=== PATIENT | female | born 1970 | race Caucasian/White ===

== ENCOUNTER 2016-07-13 23:29 | Emergency (ER) | payer OTHER ==
[~2016-07-13 23:29] MED LIST: ADV500INH INH; ALBU83IN INH; CLAR1TAB2 PO; COUM1TAB17 PO; DIGO0.12 PO; DILT240C49 PO; LASI20TA PO; NON-325T5 PO; PACE400T PO; PROA1AER IN; RANI15TA PO; SING10TA32 PO; SPIR25TA2 PO; TOPR100T PO; TYLE325T5 PO
[2016-07-14 01:54] LABS: BASO % 0.2 % (0.0-1.0); EOS # 0.1 K/mm3 (0.0-0.50); EOS % 0.6 % (0.0-3.0); LARGE UNSTAINED CELL # 0.2 K/mm3 (0.0-0.4); LARGE UNSTAINED CELL % 1.5 % (0.0-4.0); LYMPH # 1.7 K/mm3 (1.5-4.5); LYMPH % 11.7 % (24.0-44.0); MEAN CORPUSCULAR HGB CONC 32.9 g/dl (32.0-36.5); MEAN CORPUSCULAR VOLUME 82.3 fl (80.0-96.0); MONO # 0.6 K/mm3 (0.0-0.8); MONO % 4.1 % (0.0-5.0); NEUTROPHILS # 11.7 K/mm3 (1.8-7.7); NEUTROPHILS % 81.9 % (36.0-66.0); PLATELET COUNT, AUTOMATED 268 k/mm3 (150-450); RED CELL DISTRIBUTION WIDTH 15.2 % (11.5-14.5); WHITE BLOOD COUNT 14.2 K/mm3 (4.0-10.0)
[2016-07-14 02:05] LABS: ALBUMIN 3.7 GM/DL (3.2-5.2); ALBUMIN/GLOBULIN RATIO 0.74 (1.00-1.93); BILIRUBIN,DIRECT 0.1 MG/DL (0.0-0.2); BILIRUBIN,TOTAL 0.5 MG/DL (0.2-1.0); CALCIUM LEVEL 8.5 MG/DL (8.5-10.1); CREATININE FOR GFR 1.32 MG/DL (0.55-1.02); GLOMERULAR FILTRATION RATE 46.3 (>58); POTASSIUM SERUM 2.8 MEQ/L (3.5-5.1); TOTAL PROTEIN 8.7 GM/DL (6.4-8.2)
--- NOTE | 2016-07-14 02:09 | REP ---
Clinical: Trauma. Technique: AP, lateral, bilateral oblique views right hand . Findings: The osseous structures and joint spaces are intact and normal. There is no evidence for acute fracture or dislocation. Surrounding soft tissues are unremarkable. No subcutaneous emphysema or radiodense foreign body. Impression: No acute fracture or dislocation. Signed by Trent Segundo MD 07/14/2016 02:01 A
[2016-07-14 02:16] LABS: INR 6.15
[2016-07-14] MEDS ORDERED: PHYTONADIONE 10MG/ML INJECTION (J3430) As Ordered ONE (02:24)
[2016-07-14] MEDS ORDERED: POTASSIUM CHLORIDE 10 MEQ SR TABLET As Ordered ONE (02:47)
--- NOTE | 2016-07-14 03:29 | EDDOCDS ---
Physician Documentation [facility] Name: Laura Musa Age: 46 yrs Sex: Female : 1970 Arrival Date: 07/13/2016 Time: 23:29 Bed 7 Private MD: ROXANNE ACKERMAN Disposition: 07/14/16 02:35 Discharged to Home/Self Care. Impression: Abnormal coagulation profile, Coagulation defect, unspecified - coumadin induced. INR at 6.1. - Condition is Stable. - Medication Reconciliation, Local Pharmacy Hours form. - Follow up: ROXANNE ACKERMAN; When: Tomorrow; Reason: Recheck today's complaints. - Problem is new. - Symptoms have improved. - Notes: see your physician tomorrow. do not take coumadin until cleared by your physician to do so. Historical: - Allergies: SULFA (SULFONAMIDES) (Hives); PENICILLINS (throat closing); Latex (Hives); Aspirin (throat closing); - Home Meds: 1. albuterol sulfate 90 mcg/actuation Inhl HFAA 1 puff every 4 hours (Last dose: 07/13/2016) 2. Breo Ellipta 100-25 mcg/dose inhalation dsdv 1 puff once daily (Last dose: 07/13/2016) 3. gabapentin 300 mg Oral cap 1 cap twice a day (Last dose: 07/13/2016 08:00) 4. furosemide 40 mg Oral tab 1 tab once daily (Last dose: 07/13/2016 17:00) 5. Coumadin 5 mg oral tab 1 tab once daily (Last dose: 07/13/2016 23:30) 6. metoprolol tartrate 25 mg oral tab .5 tab three times a day (Last dose: 07/13/2016 12:00) 7. ranitidine HCl 150 mg Oral tab 1 tab 2 times per day (Last dose: 07/13/2016 08:00) 8. tizanidine 4 mg oral tab 2 tabs every 8 hours as needed (Last dose: 07/13/2016 08:00) 9. omeprazole 20 mg Oral cpDR 1 cap 2 times per day (Last dose: 07/13/2016 08:00) 10. spironolactone 25 mg oral tab 1 tab once daily (Last dose: 07/13/2016 08:00) 11. Claritin 10 mg Oral tab 1 tab once daily 12. cetirizine 10 mg oral tab 1 tab once daily (Last dose: 07/13/2016 08:00) 13. oxybutynin chloride 5 mg Oral tr24 1 tab twice a day (Last dose: 07/13/2016 08:00) 14. Sertraline 50 mg daily (Last dose: 07/13/2016 08:00) 15. montelukast 10 mg oral tab 1 tab nightly (Last dose: 07/12/2016) 16. Oxygen 3 Liters nightly (Last dose: 07/12/2016) - PMHx: Atrial Fib; COPD; GERD; Seasonal Allergies; - PSHx: Mitral Valve Repair (March 16, 2015); LEEP Procedure; Tubal ligation; Uterine Ablation; - Social history: Smoking status: Patient uses tobacco products, light tobacco smoker. No barriers to communication noted, The patient speaks fluent Irish, Speaks appropriately for age. - Family history: Not pertinent. - : The pt / caregiver states he / she is on anticoagulants: coumadin. Home medication list is obtained from the patient, [employer] import data, pill bottles. - Exposure Risk Screening:: None identified. 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 5 in. (165.10 cm) (R); Pain 8/10; 07/14 03:16 BP 120 / 80 RA (auto/); Pulse 18 RA; Resp 18 S; Temp 98.3(TE); Pulse Ox 100% on R/A; af2 07/13 23:33 Body Mass Index 32.45 (88.45 kg, 165.10 cm) gr2 MDM: 00:11 Financial registration complete. [facility] 00:19 CBC with Diff Ordered. EDMS 00:19 MED Profile Ordered. EDMS 00:19 Pt & Aptt Ordered. EDMS 00:19 Liver Profile Ordered. EDMS 00:19 Ammonia (Little Green Tube on Ice, Not Pea Green) Ordered. EDMS 00:19 Hand, Complete Ordered. EDMS 00:27 COUNTS INCLUDE 234 BEDS AT THE [facility] Payment Agreement was scanned into [employer] and attached to record. [facility] 02:08 CBC with Diff Reviewed. [facility] 02:08 Ammonia (Little Green Tube on Ice, Not Pea Green) Reviewed. cs11 02:17 IV Saline Lock ordered. cs11 02:17 Phytonadione 5 mg IVP once ordered. cs11 02:32 MED Profile Reviewed. cs11 02:32 Pt & Aptt Reviewed. cs11 02:32 Liver Profile Reviewed. cs11 02:32 Hand, Complete Reviewed. cs11 02:32 Potassium Chloride Extended Release Tablet 40 mEq PO once ordered. cs11 Administered Medications: 02:36 Drug: Phytonadione 5 mg [phytonadione (vitamin K1) 10 mg/mL injection solution (0.5 js15 mL)] Route: IVP; Site: left antecubital; 02:50 Drug: Potassium Chloride 40 mEq [potassium chloride ER 10 mEq tablet,extended release js15 (4 tabs)] Route: PO; Signatures: Dispatcher [employer] EDMO Elisa Hoover, RN RN kmg1 Gilberto Guerrero, DO 11 Nyla Marion [facility] Nely Brown,RN RN af2 Perlita Gonzalez,RN RN js15 The chart was reviewed and I authenticate all verbal orders and agree with the evaluation and treatment provided.Attachments: 00:27 COUNTS INCLUDE 234 BEDS AT THE [facility] Payment Agreement [facility] MTDD
--- NOTE | 2016-07-14 03:30 | EDDOCDS ---
Nurse's Notes [facility] Name: Laura Musa Age: 46 yrs Sex: Female : 1970 Arrival Date: 07/13/2016 Time: 23:29 Bed 7 Private MD: ROXANNE ACKERMAN Diagnosis: Abnormal coagulation profile;Coagulation defect, unspecified-coumadin induced. INR at 6.1 Presentation: 07/13 23:38 Presenting complaint: Patient states: Petechial, purpura rash on both legs. Swelling kmg1 right hand painful feet, ankles, knees, and hands. The patients lower extremity appears normal on examination. Adult Sepsis Screening: The patient does not have new or worsening altered mentation. Patient's respiratory rate is less than 22. Systolic blood pressure is greater than 100. Patient has a qSOFA score of 0- Negative Sepsis Screen. Suicide/Homicide risk assessment- the patient denies having any suicidal and/or homicidal ideations and does not present with any other emotional, behavioral or mental health complaints. Status: Patient is not a nutritional services host or dependent. Transition of care: patient was not received from another setting of care. 23:38 Acuity: SANTOSH Level 3 kmg1 23:38 Method Of Arrival: Wheelchair km Triage Assessment: 23:54 General: Appears comfortable, distressed, Behavior is appropriate for age, cooperative, kmg1 pleasant. Pain: Location: right hand, left hand, right knee, right coronado, anterior aspect of right ankle, dorsum of right foot and left leg Pain currently is 3 out of 10 on a pain scale. At worst was 10 out of 10 on a pain scale. Alleviated by rest, Aggravated by increased activity, weight bearing. HIV screening NA for this visit Offered previously. Derm: Rash noted that is red, vesicular, on right leg and left leg. Musculoskeletal: Reports pain in right hand, left hand, right leg and left leg. 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 albuterol sulfate 90 mcg/actuation Inhl HFAA 1 puff every 4 hours (Last dose: 07/13/2016) 2. Breo Ellipta 100-25 mcg/dose inhalation dsdv 1 puff once daily (Last dose: 07/13/2016) 3. gabapentin 300 mg Oral cap 1 cap twice a day (Last dose: 07/13/2016 08:00) 4. furosemide 40 mg Oral tab 1 tab once daily (Last dose: 07/13/2016 17:00) 5. Coumadin 5 mg oral tab 1 tab once daily (Last dose: 07/13/2016 23:30) 6. metoprolol tartrate 25 mg oral tab .5 tab three times a day (Last dose: 07/13/2016 12:00) 7. ranitidine HCl 150 mg Oral tab 1 tab 2 times per day (Last dose: 07/13/2016 08:00) 8. tizanidine 4 mg oral tab 2 tabs every 8 hours as needed (Last dose: 07/13/2016 08:00) 9. omeprazole 20 mg Oral cpDR 1 cap 2 times per day (Last dose: 07/13/2016 08:00) 10. spironolactone 25 mg oral tab 1 tab once daily (Last dose: 07/13/2016 08:00) 11. Claritin 10 mg Oral tab 1 tab once daily 12. cetirizine 10 mg oral tab 1 tab once daily (Last dose: 07/13/2016 08:00) 13. oxybutynin chloride 5 mg Oral tr24 1 tab twice a day (Last dose: 07/13/2016 08:00) 14. Sertraline 50 mg daily (Last dose: 07/13/2016 08:00) 15. montelukast 10 mg oral tab 1 tab nightly (Last dose: 07/12/2016) 16. Oxygen 3 Liters nightly (Last dose: 07/12/2016) - PMHx: Atrial Fib; COPD; GERD; Seasonal Allergies; - PSHx: Mitral Valve Repair (March 16, 2015); LEEP Procedure; Tubal ligation; Uterine Ablation; - Social history: Smoking status: Patient uses tobacco products, light tobacco smoker. No barriers to communication noted, The patient speaks fluent Amharic, Speaks appropriately for age. - Family history: Not pertinent. - : The pt / caregiver states he / she is on anticoagulants: coumadin. Home medication list is obtained from the patient, [facility] import data, pill bottles. - Exposure Risk Screening:: None identified. Screenin/06 03:16 Screening information is obtained from the patient. Fall risk: No risks identified. af2 Assistance ADL's: requires no assistance with activities of daily living. Abuse/DV Screen: The patient / caregiver reports he/she is: not in a situation that causes fear, pain or injury. Nutritional screening: No deficits noted. Advance Directives: Further advance directive information is declined. home support is adequate. Assessment: 01:00 General: Appears uncomfortable, Behavior is appropriate for age, cooperative. Pain: js15 Location: right ankle and left medial ankle Pain currently is 7 out of 10 on a pain scale. Neurological: Level of Consciousness is awake, alert, obeys commands, Oriented to person, place, time. Cardiovascular: Capillary refill < 3 seconds Heart tones S1 S2 present. Respiratory: Airway is patent Respiratory effort is even, unlabored, Respiratory pattern is regular, symmetrical, Breath sounds are clear bilaterally. Derm: Rash noted that is on right leg and left leg purpuric. Musculoskeletal: Capillary refill < 3 seconds No deformity noted Signs and Symptoms of Compartment Syndrome: no signs of compartment syndrome. 02:00 Reassessment: Patient appears in no apparent distress at this time. Pt resting on js15 stretcher with eyes closed; respirations even and unlabored; skin pink, warm, dry. 03:00 Reassessment: Patient appears in no apparent distress at this time. Pt awake and alert, js15 resting on stretcher, respirations even and unlabored; skin pink, warm, dry with red, purpuric rash to bilateral lower extremities; will continue to monitor. Vital Signs: 07/13 23:33 BP 126 / 89; Pulse 105; Resp 20 S; Temp 98.7(O); Pulse Ox 99% on R/A; Weight 88.45 kg gr2 (R); Height 5 ft. 5 in. (165.10 cm) (R); Pain 8/10; 07/14 03:16 BP 120 / 80 RA (auto/); Pulse 18 RA; Resp 18 S; Temp 98.3(TE); Pulse Ox 100% on R/A; af2 07/13 23:33 Body Mass Index 32.45 (88.45 kg, 165.10 cm) gr2 Vitals: 07/13 23:33 Log In Time: July 13, 2016 at 23:33. gr2 ED Course: 23:32 Patient visited by Brigid Bynum. gr2 23:32 ROXANNE ACKERMAN is Private Physician. gr2 23:32 Patient moved to Waiting gr2 23:34 Patient visited by Brigid Bynum. gr2 23:34 Patient moved to Pre RCE gr2 23:43 Triage Initiated kmg1 23:56 Reina Forbes,BLANCHE is Primary Nurse. lf1 23:59 Gilberto Guerrero DO is Attending Physician. cs11 23:59 Patient visited by Gilberto Guerrero DO. cs11 23:59 Patient moved to [facility] [place] 0206 00:27 [facility] Payment Agreement was scanned into [employer] and attached to record. [facility] 00:30 Patient name changed from Laura\S\J\S\[place]\S\ to Laura\S\Candace\S\[place]. EDMS 00:47 Patient moved to Radiology [facility] 00:49 Patient moved to 7 [facility] 01:30 Inserted saline lock: 20 gauge in left antecubital area The patient tolerated the js15 procedure well. 01:42 Patient visited by Perlita Gonzalez,BLANCHE. js15 01:42 Ammonia (Little Green Tube on Ice, Not Pea Green) Sent. js15 01:42 Liver Profile Sent. js15 01:42 Pt & Aptt Sent. js15 01:42 MED Profile Sent. js15 01:42 CBC with Diff Sent. js15 02:22 Hand, Complete Returned. EDMS 02:34 ROXANNE ACKERMAN is Referral Physician. cs11 03:16 Discontinued IV lock intact, bleeding controlled, pressure dressing applied, No af2 redness/swelling at site. No procedures done that require assistance. 03:17 Patient visited by Nely Brown,BLANCHE. af2 03:17 The patient / caregiver is instructed regarding the plan of care and ED course. af2 Administered Medications: 02:36 Drug: Phytonadione 5 mg [phytonadione (vitamin K1) 10 mg/mL injection solution (0.5 js15 mL)] Route: IVP; Site: left antecubital; 02:50 Drug: Potassium Chloride 40 mEq [potassium chloride ER 10 mEq tablet,extended release js15 (4 tabs)] Route: PO; Order Results: Lab Order: CBC with Diff; SPEC'M 07/14/16 01:32 Test: WHITE BLOOD COUNT; Value: 14.2; Range: 4.0-10.0; Abnormal: Above high normal; Units: K/mm3; Status: F Test: RED BLOOD COUNT; Value: 5.40; Range: 4.00-5.40; Units: M/mm3; Status: F Test: HEMOGLOBIN; Value: 14.6; Range: 12.0-16.0; Units: g/dl; Status: F Test: HEMATOCRIT; Value: 44.4; Range: 36.0-47.0; Units: %; Status: F Test: MEAN CORPUSCULAR VOLUME; Value: 82.3; Range: 80.0-96.0; Units: fl; Status: F Test: MEAN CORPUSCULAR HEMOGLOBIN; Value: 27.0; Range: 27.0-33.0; Units: pg; Status: F Test: MEAN CORPUSCULAR HGB CONC; Value: 32.9; Range: 32.0-36.5; Units: g/dl; Status: F Test: RED CELL DISTRIBUTION WIDTH; Value: 15.2; Range: 11.5-14.5; Abnormal: Above high normal; Units: %; Status: F Test: PLATELET COUNT, AUTOMATED; Value: 268; Range: 150-450; Units: k/mm3; Status: F Test: NEUTROPHILS %; Value: 81.9; Range: 36.0-66.0; Abnormal: Above high normal; Units: %; Status: F Test: LYMPH %; Value: 11.7; Range: 24.0-44.0; Abnormal: Below low normal; Units: %; Status: F Test: MONO %; Value: 4.1; Range: 0.0-5.0; Units: %; Status: F Test: EOS %; Value: 0.6; Range: 0.0-3.0; Units: %; Status: F Test: BASO %; Value: 0.2; Range: 0.0-1.0; Units: %; Status: F Test: LARGE UNSTAINED CELL %; Value: 1.5; Range: 0.0-4.0; Units: %; Status: F Test: NEUTROPHILS #; Value: 11.7; Range: 1.8-7.7; Abnormal: Above high normal; Units: K/mm3; Status: F Test: LYMPH #; Value: 1.7; Range: 1.5-4.5; Units: K/mm3; Status: F Test: MONO #; Value: 0.6; Range: 0.0-0.8; Units: K/mm3; Status: F Test: EOS #; Value: 0.1; Range: 0.0-0.50; Units: K/mm3; Status: F Test: BASO #; Value: 0.0; Range: 0.0-0.2; Units: K/mm3; Status: F Test: LARGE UNSTAINED CELL #; Value: 0.2; Range: 0.0-0.4; Units: K/mm3; Status: F Lab Order: MED Profile; SPEC'M 07/14/16 01:32 Test: GLUCOSE, FASTING; Value: 113; Range: 70-105; Abnormal: Above high normal; Units: MG/DL; Status: F Test: BLOOD UREA NITROGEN; Value: 14; Range: 7-18; Units: MG/DL; Status: F Test: CREATININE FOR GFR; Value: 1.32; Range: 0.55-1.02; Abnormal: Above high normal; Units: MG/DL; Status: F Test: GLOMERULAR FILTRATION RATE; Value: 46.3; Range: >58; Abnormal: Below low normal; Status: F Test: SODIUM LEVEL; Value: 135; Range: 136-145; Abnormal: Below low normal; Units: MEQ/L; Status: F Test: POTASSIUM SERUM; Value: 2.8; Range: 3.5-5.1; Abnormal: Critical Low; Units: MEQ/L; Status: F Test: CHLORIDE LEVEL; Value: 98; Range: 98-107; Units: MEQ/L; Status: F Test: CARBON DIOXIDE LEVEL; Value: 30; Range: 21-32; Units: MEQ/L; Status: F Test: ANION GAP; Value: 7; Range: 8-16; Abnormal: Below low normal; Units: MEQ/L; Status: F Test: CALCIUM LEVEL; Value: 8.5; Range: 8.5-10.1; Units: MG/DL; Status: F Test Note: ; Units are mL/min/1.73 m2 Chronic Kidney Disease Staging per NKF: Stage I & II GFR >=60 Normal to Mildly Decreased Stage III GFR 30-59 Moderately Decreased Stage IV GFR 15-29 Severely Decreased Stage V GFR <15 Very Little GFR Left ESRD GFR <15 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 Lab Order: Pt & Aptt; SPEC'M 07/14/16 01:32 Test: PROTHROMBIN TIME; Value: 54.4; Range: 12.3-14.5; Abnormal: Above high normal; Units: SECONDS; Status: F Test: INR; Value: 6.15; Abnormal: Above upper panic limits; Status: F Test: PARTIAL THROMBOPLASTIN TIME; Value: 119.3; Range: 26.6-37.1; Abnormal: Above high normal; Units: SECONDS; Status: F Test Note: ; THERAPUTIC HUMAN INR VALUES INDICATIONS NORMAL RANGES PROPHYLAXIS/TREATMENT OF: VENOUS THROMBOSIS 2.0-3.0 PULMONARY EMBOLISM 2.0-3.0 PREVENTION OF SYSTEMIC EMBOLISM FROM: TISSUE HEART VALVES 2.0-3.0 ACUTE MYOCARDIAL INFARCTION 2.0-3.0 VALVULAR HEART DISEASE 2.0-3.0 ATRIAL FIBRILLATION 2.0-3.0 MECHANICAL VALVES(HIGH RISK) 2.5-3.5 RECURRENT MYOCARDIAL INFARCTION 2.5-3.5 Lab Order: Liver Profile; SPEC07/14/16 01:32 Test: AST/SGOT; Value: 24; Range: 15-37; Units: U/L; Status: F Test: ALT/SGPT; Value: 19; Range: 12-78; Units: U/L; Status: F Test: ALKALINE PHOSPHATASE; Value: 180; Range: 45-117; Abnormal: Above high normal; Units: U/L; Status: F Test: BILIRUBIN,TOTAL; Value: 0.5; Range: 0.2-1.0; Units: MG/DL; Status: F Test: BILIRUBIN,DIRECT; Value: 0.1; Range: 0.0-0.2; Units: MG/DL; Status: F Test: TOTAL PROTEIN; Value: 8.7; Range: 6.4-8.2; Abnormal: Above high normal; Units: GM/DL; Status: F Test: ALBUMIN; Value: 3.7; Range: 3.2-5.2; Units: GM/DL; Status: F Test: ALBUMIN/GLOBULIN RATIO; Value: 0.74; Range: 1.00-1.93; Abnormal: Below low normal; Status: F Lab Order: Ammonia (Little Green Tube on Ice, Not Pea Green); SPEC'M 07/14/16 01:32 Test: AMMONIA; Value: < 10; Range: <32; Units: uMOL/L; Status: F Radiology Order: Hand, Complete Test: Hand, Complete REASON FOR EXAMINATION: Trauma; Clinical: Trauma.; ; Technique: AP, lateral, bilateral oblique views right hand .; ; Findings: The osseous structures and joint spaces are intact and normal. There; is no evidence for acute fracture or dislocation. Surrounding soft tissues are; unremarkable. No subcutaneous emphysema or radiodense foreign body.; ; Impression:; No acute fracture or dislocation.; ; ; Signed by; Trent Segundo MD 07/14/2016 02:01 A; Outcome: 02:35 Discharge ordered by Provider. cs11 03:17 Discharge Assessment: Patient awake, alert and oriented x 3. No cognitive and/or af2 functional deficits noted. Patient verbalized understanding of disposition instructions. patient administered narcotics - no. The following High Risk Discharge criteria are identified: None. Discharged to home ambulatory, with significant other. Condition: stable. Discharge instructions given to patient, Instructed on discharge instructions, follow up and referral plans. medication usage, Demonstrated understanding of instructions, medications, Pt was receptive of discharge instructions/ teaching. No special radiology studies were completed. Property :Personal belongings accompany Pt. 03:28 Patient left the ED. js15 Signatures: Dispatcher [employer] EDMS Elisa Hoover, RN RN kmg1 Hal Sarmiento LisaRN RN lf1 Gilberto Guerrero DO DO cs11 Brigid Bynum gr2 Nyla Marion AmberRN RN af2 Perlita GonzalezRN RN js15 MTDD
--- NOTE | 2016-07-16 04:29 | EDDOCDS ---
Physician Documentation [facility] Name: Laura Musa Age: 46 yrs Sex: Female : 1970 Arrival Date: 07/13/2016 Time: 23:29 Bed 7 Private MD: ROXANNE ACKERMAN Disposition: 07/14/16 02:35 Discharged to Home/Self Care. Impression: Abnormal coagulation profile, Coagulation defect, unspecified - coumadin induced. INR at 6.1. - Condition is Stable. - Medication Reconciliation, Local Pharmacy Hours form. - Follow up: ROXANNE ACKERMAN; When: Tomorrow; Reason: Recheck today's complaints. - Problem is new. - Symptoms have improved. - Notes: see your physician tomorrow. do not take coumadin until cleared by your physician to do so. Historical: - Allergies: SULFA (SULFONAMIDES) (Hives); PENICILLINS (throat closing); Latex (Hives); Aspirin (throat closing); - Home Meds: 1. albuterol sulfate 90 mcg/actuation Inhl HFAA 1 puff every 4 hours (Last dose: 07/13/2016) 2. Breo Ellipta 100-25 mcg/dose inhalation dsdv 1 puff once daily (Last dose: 07/13/2016) 3. gabapentin 300 mg Oral cap 1 cap twice a day (Last dose: 07/13/2016 08:00) 4. furosemide 40 mg Oral tab 1 tab once daily (Last dose: 07/13/2016 17:00) 5. Coumadin 5 mg oral tab 1 tab once daily (Last dose: 07/13/2016 23:30) 6. metoprolol tartrate 25 mg oral tab .5 tab three times a day (Last dose: 07/13/2016 12:00) 7. ranitidine HCl 150 mg Oral tab 1 tab 2 times per day (Last dose: 07/13/2016 08:00) 8. tizanidine 4 mg oral tab 2 tabs every 8 hours as needed (Last dose: 07/13/2016 08:00) 9. omeprazole 20 mg Oral cpDR 1 cap 2 times per day (Last dose: 07/13/2016 08:00) 10. spironolactone 25 mg oral tab 1 tab once daily (Last dose: 07/13/2016 08:00) 11. Claritin 10 mg Oral tab 1 tab once daily 12. cetirizine 10 mg oral tab 1 tab once daily (Last dose: 07/13/2016 08:00) 13. oxybutynin chloride 5 mg Oral tr24 1 tab twice a day (Last dose: 07/13/2016 08:00) 14. Sertraline 50 mg daily (Last dose: 07/13/2016 08:00) 15. montelukast 10 mg oral tab 1 tab nightly (Last dose: 07/12/2016) 16. Oxygen 3 Liters nightly (Last dose: 07/12/2016) - PMHx: Atrial Fib; COPD; GERD; Seasonal Allergies; - PSHx: Mitral Valve Repair (March 16, 2015); LEEP Procedure; Tubal ligation; Uterine Ablation; - Social history: Smoking status: Patient uses tobacco products, light tobacco smoker. No barriers to communication noted, The patient speaks fluent Belarusian, Speaks appropriately for age. - Family history: Not pertinent. - : The pt / caregiver states he / she is on anticoagulants: coumadin. Home medication list is obtained from the patient, [employer] MD import data, pill bottles. - Exposure Risk Screening:: None identified. 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 5 in. (165.10 cm) (R); Pain 8/10; 07/14 03:16 BP 120 / 80 RA (auto/); Pulse 18 RA; Resp 18 S; Temp 98.3(TE); Pulse Ox 100% on R/A; af2 07/13 23:33 Body Mass Index 32.45 (88.45 kg, 165.10 cm) gr2 MDM: 00:11 Financial registration complete. [facility] 00:19 CBC with Diff Ordered. EDMS 00:19 MED Profile Ordered. EDMS 00:19 Pt & Aptt Ordered. EDMS 00:19 Liver Profile Ordered. EDMS 00:19 Ammonia (Little Green Tube on Ice, Not Pea Green) Ordered. EDMS 00:19 Hand, Complete Ordered. EDMS 00:27 [facility] Payment Agreement was scanned into [employer] and attached to record. [facility] 02:08 CBC with Diff Reviewed. [facility] 02:08 Ammonia (Little Green Tube on Ice, Not Pea Green) Reviewed. cs11 02:17 IV Saline Lock ordered. cs11 02:17 Phytonadione 5 mg IVP once ordered. cs11 02:32 MED Profile Reviewed. cs11 02:32 Pt & Aptt Reviewed. cs11 02:32 Liver Profile Reviewed. cs11 02:32 Hand, Complete Reviewed. cs11 02:32 Potassium Chloride Extended Release Tablet 40 mEq PO once ordered. [facility] 09:36 T-Sheet-- Draft Copy was scanned into [employer] and attached to record. gb Administered Medications: 02:36 Drug: Phytonadione 5 mg [phytonadione (vitamin K1) 10 mg/mL injection solution (0.5 js15 mL)] Route: IVP; Site: left antecubital; 02:50 Drug: Potassium Chloride 40 mEq [potassium chloride ER 10 mEq tablet,extended release js15 (4 tabs)] Route: PO; Signatures: Dispatcher [employer] EDDC Elisa Hoover, RN RN kmg1 Danae Harmon, Reg Reg gb Gilberto Guerrero, DO DO cs11 Nyla Marion [facility] Nely Brown,RN RN af2 Perlita Gonzalez,RN RN js15 The chart was reviewed and I authenticate all verbal orders and agree with the evaluation and treatment provided.Attachments: 00:27 [facility] Payment Agreement [facility] 09:36 T-Sheet-- Draft Copy gb Chart Complete MTDD
--- NOTE | 2016-07-16 04:29 | EDDOCDS ---
Physician Documentation [facility] Name: Laura Musa Age: 46 yrs Sex: Female : 1970 Arrival Date: 07/13/2016 Time: 23:29 Bed 7 Private MD: ROXANNE ACKERMAN Disposition: 07/14/16 02:35 Discharged to Home/Self Care. Impression: Abnormal coagulation profile, Coagulation defect, unspecified - coumadin induced. INR at 6.1. - Condition is Stable. - Medication Reconciliation, Local Pharmacy Hours form. - Follow up: ROXANNE ACKERMAN; When: Tomorrow; Reason: Recheck today's complaints. - Problem is new. - Symptoms have improved. - Notes: see your physician tomorrow. do not take coumadin until cleared by your physician to do so. Historical: - Allergies: SULFA (SULFONAMIDES) (Hives); PENICILLINS (throat closing); Latex (Hives); Aspirin (throat closing); - Home Meds: 1. albuterol sulfate 90 mcg/actuation Inhl HFAA 1 puff every 4 hours (Last dose: 07/13/2016) 2. Breo Ellipta 100-25 mcg/dose inhalation dsdv 1 puff once daily (Last dose: 07/13/2016) 3. gabapentin 300 mg Oral cap 1 cap twice a day (Last dose: 07/13/2016 08:00) 4. furosemide 40 mg Oral tab 1 tab once daily (Last dose: 07/13/2016 17:00) 5. Coumadin 5 mg oral tab 1 tab once daily (Last dose: 07/13/2016 23:30) 6. metoprolol tartrate 25 mg oral tab .5 tab three times a day (Last dose: 07/13/2016 12:00) 7. ranitidine HCl 150 mg Oral tab 1 tab 2 times per day (Last dose: 07/13/2016 08:00) 8. tizanidine 4 mg oral tab 2 tabs every 8 hours as needed (Last dose: 07/13/2016 08:00) 9. omeprazole 20 mg Oral cpDR 1 cap 2 times per day (Last dose: 07/13/2016 08:00) 10. spironolactone 25 mg oral tab 1 tab once daily (Last dose: 07/13/2016 08:00) 11. Claritin 10 mg Oral tab 1 tab once daily 12. cetirizine 10 mg oral tab 1 tab once daily (Last dose: 07/13/2016 08:00) 13. oxybutynin chloride 5 mg Oral tr24 1 tab twice a day (Last dose: 07/13/2016 08:00) 14. Sertraline 50 mg daily (Last dose: 07/13/2016 08:00) 15. montelukast 10 mg oral tab 1 tab nightly (Last dose: 07/12/2016) 16. Oxygen 3 Liters nightly (Last dose: 07/12/2016) - PMHx: Atrial Fib; COPD; GERD; Seasonal Allergies; - PSHx: Mitral Valve Repair (March 16, 2015); LEEP Procedure; Tubal ligation; Uterine Ablation; - Social history: Smoking status: Patient uses tobacco products, light tobacco smoker. No barriers to communication noted, The patient speaks fluent Turkmen, Speaks appropriately for age. - Family history: Not pertinent. - : The pt / caregiver states he / she is on anticoagulants: coumadin. Home medication list is obtained from the patient, [employer] import data, pill bottles. - Exposure Risk Screening:: None identified. [employer] DIV[employer] DIRECTOR: 07/13 23:54 LMP N/A - Uterine ablation kmg1 Vital Signs: 23:33 BP 126 / 89; Pulse 105; Resp 20 S; Temp 98.7(O); Pulse Ox 99% on R/A; Weight 88.45 kg / gr2 195 lbs (R); Height 5 ft. 5 in. (165.10 cm) (R); Pain 8/10; 07/14 03:16 BP 120 / 80 RA (auto/); Pulse 18 RA; Resp 18 S; Temp 98.3(TE); Pulse Ox 100% on R/A; af2 07/13 23:33 Body Mass Index 32.45 (88.45 kg, 165.10 cm) gr2 MDM: 00:11 Financial registration complete. [facility] 00:19 CBC with Diff Ordered. EDMS 00:19 MED Profile Ordered. EDMS 00:19 Pt & Aptt Ordered. EDMS 00:19 Liver Profile Ordered. EDMS 00:19 Ammonia (Little Green Tube on Ice, Not Pea Green) Ordered. EDMS 00:19 Hand, Complete Ordered. EDMS 00:27 [facility] Payment Agreement was scanned into [employer] and attached to record. [facility] 02:08 CBC with Diff Reviewed. [facility] 02:08 Ammonia (Little Green Tube on Ice, Not Pea Green) Reviewed. cs11 02:17 IV Saline Lock ordered. cs11 02:17 Phytonadione 5 mg IVP once ordered. cs11 02:32 MED Profile Reviewed. cs11 02:32 Pt & Aptt Reviewed. cs11 02:32 Liver Profile Reviewed. cs11 02:32 Hand, Complete Reviewed. cs11 02:32 Potassium Chloride Extended Release Tablet 40 mEq PO once ordered. [facility] 09:36 T-Sheet-- Draft Copy was scanned into [employer] and attached to record. gb Administered Medications: 02:36 Drug: Phytonadione 5 mg [phytonadione (vitamin K1) 10 mg/mL injection solution (0.5 js15 mL)] Route: IVP; Site: left antecubital; 02:50 Drug: Potassium Chloride 40 mEq [potassium chloride ER 10 mEq tablet,extended release js15 (4 tabs)] Route: PO; Signatures: Dispatcher [employer] EDIA Elisa Hoover, RN RN kmg1 Danae Harmon, Reg Reg gb Gilberto Guerrero, DO DO cs11 Nyla Marion [facility] Nely Brown,RN RN af2 Perlita Gonzalez,RN RN js15 The chart was reviewed and I authenticate all verbal orders and agree with the evaluation and treatment provided.Attachments: 00:27 [facility] Payment Agreement [facility] 09:36 T-Sheet-- Draft Copy gb Chart Complete MTDD
--- NOTE | 2016-07-16 04:30 | EDDOCDS ---
Nurse's Notes [facility] Name: Laura Musa Age: 46 yrs Sex: Female : 1970 Arrival Date: 07/13/2016 Time: 23:29 Bed 7 Private MD: ROXANNE ACKERMAN Diagnosis: Abnormal coagulation profile;Coagulation defect, unspecified-coumadin induced. INR at 6.1 Presentation: 07/13 23:38 Presenting complaint: Patient states: Petechial, purpura rash on both legs. Swelling kmg1 right hand painful feet, ankles, knees, and hands. The patients lower extremity appears normal on examination. Adult Sepsis Screening: The patient does not have new or worsening altered mentation. Patient's respiratory rate is less than 22. Systolic blood pressure is greater than 100. Patient has a qSOFA score of 0- Negative Sepsis Screen. Suicide/Homicide risk assessment- the patient denies having any suicidal and/or homicidal ideations and does not present with any other emotional, behavioral or mental health complaints. Status: Patient is not a office services specialist or dependent. Transition of care: patient was not received from another setting of care. 23:38 Acuity: SANTOSH Level 3 kmg1 23:38 Method Of Arrival: Wheelchair km Triage Assessment: 23:54 General: Appears comfortable, distressed, Behavior is appropriate for age, cooperative, kmg1 pleasant. Pain: Location: right hand, left hand, right knee, right coronado, anterior aspect of right ankle, dorsum of right foot and left leg Pain currently is 3 out of 10 on a pain scale. At worst was 10 out of 10 on a pain scale. Alleviated by rest, Aggravated by increased activity, weight bearing. HIV screening NA for this visit Offered previously. Derm: Rash noted that is red, vesicular, on right leg and left leg. Musculoskeletal: Reports pain in right hand, left hand, right leg and left leg. [employer]: 23:54 LMP N/A - Uterine ablation kmg1 Historical: - Allergies: SULFA (SULFONAMIDES) (Hives); PENICILLINS (throat closing); Latex (Hives); Aspirin (throat closing); - Home Meds: 1. albuterol sulfate 90 mcg/actuation Inhl HFAA 1 puff every 4 hours (Last dose: 07/13/2016) 2. Breo Ellipta 100-25 mcg/dose inhalation dsdv 1 puff once daily (Last dose: 07/13/2016) 3. gabapentin 300 mg Oral cap 1 cap twice a day (Last dose: 07/13/2016 08:00) 4. furosemide 40 mg Oral tab 1 tab once daily (Last dose: 07/13/2016 17:00) 5. Coumadin 5 mg oral tab 1 tab once daily (Last dose: 07/13/2016 23:30) 6. metoprolol tartrate 25 mg oral tab .5 tab three times a day (Last dose: 07/13/2016 12:00) 7. ranitidine HCl 150 mg Oral tab 1 tab 2 times per day (Last dose: 07/13/2016 08:00) 8. tizanidine 4 mg oral tab 2 tabs every 8 hours as needed (Last dose: 07/13/2016 08:00) 9. omeprazole 20 mg Oral cpDR 1 cap 2 times per day (Last dose: 07/13/2016 08:00) 10. spironolactone 25 mg oral tab 1 tab once daily (Last dose: 07/13/2016 08:00) 11. Claritin 10 mg Oral tab 1 tab once daily 12. cetirizine 10 mg oral tab 1 tab once daily (Last dose: 07/13/2016 08:00) 13. oxybutynin chloride 5 mg Oral tr24 1 tab twice a day (Last dose: 07/13/2016 08:00) 14. Sertraline 50 mg daily (Last dose: 07/13/2016 08:00) 15. montelukast 10 mg oral tab 1 tab nightly (Last dose: 07/12/2016) 16. Oxygen 3 Liters nightly (Last dose: 07/12/2016) - PMHx: Atrial Fib; COPD; GERD; Seasonal Allergies; - PSHx: Mitral Valve Repair (March 16, 2015); LEEP Procedure; Tubal ligation; Uterine Ablation; - Social history: Smoking status: Patient uses tobacco products, light tobacco smoker. No barriers to communication noted, The patient speaks fluent Romanian, Speaks appropriately for age. - Family history: Not pertinent. - : The pt / caregiver states he / she is on anticoagulants: coumadin. Home medication list is obtained from the patient, [employer] import data, pill bottles. - Exposure Risk Screening:: None identified. Screenin/06 03:16 Screening information is obtained from the patient. Fall risk: No risks identified. af2 Assistance ADL's: requires no assistance with activities of daily living. Abuse/DV Screen: The patient / caregiver reports he/she is: not in a situation that causes fear, pain or injury. Nutritional screening: No deficits noted. Advance Directives: Further advance directive information is declined. home support is adequate. Assessment: 01:00 General: Appears uncomfortable, Behavior is appropriate for age, cooperative. Pain: js15 Location: right ankle and left medial ankle Pain currently is 7 out of 10 on a pain scale. Neurological: Level of Consciousness is awake, alert, obeys commands, Oriented to person, place, time. Cardiovascular: Capillary refill < 3 seconds Heart tones S1 S2 present. Respiratory: Airway is patent Respiratory effort is even, unlabored, Respiratory pattern is regular, symmetrical, Breath sounds are clear bilaterally. Derm: Rash noted that is on right leg and left leg purpuric. Musculoskeletal: Capillary refill < 3 seconds No deformity noted Signs and Symptoms of Compartment Syndrome: no signs of compartment syndrome. 02:00 Reassessment: Patient appears in no apparent distress at this time. Pt resting on js15 stretcher with eyes closed; respirations even and unlabored; skin pink, warm, dry. 03:00 Reassessment: Patient appears in no apparent distress at this time. Pt awake and alert, js15 resting on stretcher, respirations even and unlabored; skin pink, warm, dry with red, purpuric rash to bilateral lower extremities; will continue to monitor. Vital Signs: 07/13 23:33 BP 126 / 89; Pulse 105; Resp 20 S; Temp 98.7(O); Pulse Ox 99% on R/A; Weight 88.45 kg gr2 (R); Height 5 ft. 5 in. (165.10 cm) (R); Pain 8/10; 07/14 03:16 BP 120 / 80 RA (auto/); Pulse 18 RA; Resp 18 S; Temp 98.3(TE); Pulse Ox 100% on R/A; af2 07/13 23:33 Body Mass Index 32.45 (88.45 kg, 165.10 cm) gr2 Vitals: 07/13 23:33 Log In Time: July 13, 2016 at 23:33. gr2 ED Course: 23:32 Patient visited by Brigid Bynum. gr2 23:32 ROXANNE ACKERMAN is Private Physician. gr2 23:32 Patient moved to Waiting gr2 23:34 Patient visited by Brigid Bynum. gr2 23:34 Patient moved to Pre RCE gr2 23:43 Triage Initiated kmg1 23:56 Reina Forbes,BLANCHE is Primary Nurse. lf1 23:59 Gilberto Guerrero DO is Attending Physician. cs11 23:59 Patient visited by Gilberto Guerrero DO. cs11 23:59 Patient moved to 7 km 0206 00:27 [facility] Payment Agreement was scanned into [employer] and attached to record. [facility] [address] 00:30 Patient name changed from Laura\S\J\S\[place]\S\ to Laura\S\Candace\S\[place]. EDMS 00:47 Patient moved to Radiology blossom 00:49 Patient moved to 7 blossom 01:30 Inserted saline lock: 20 gauge in left antecubital area The patient tolerated the js15 procedure well. 01:42 Patient visited by Perlita Gonzalez,BLANCHE. js15 01:42 Ammonia (Little Green Tube on Ice, Not Pea Green) Sent. js15 01:42 Liver Profile Sent. js15 01:42 Pt & Aptt Sent. js15 01:42 MED Profile Sent. js15 01:42 CBC with Diff Sent. js15 02:22 Hand, Complete Returned. EDMS 02:34 ROXANNE ACKERMAN is Referral Physician. cs11 03:16 Discontinued IV lock intact, bleeding controlled, pressure dressing applied, No af2 redness/swelling at site. No procedures done that require assistance. 03:17 Patient visited by Nely Brown,RN. af2 03:17 The patient / caregiver is instructed regarding the plan of care and ED course. af2 09:36 T-Sheet-- Draft Copy was scanned into [employer] and attached to record. gb Administered Medications: 02:36 Drug: Phytonadione 5 mg [phytonadione (vitamin K1) 10 mg/mL injection solution (0.5 js15 mL)] Route: IVP; Site: left antecubital; 02:50 Drug: Potassium Chloride 40 mEq [potassium chloride ER 10 mEq tablet,extended release js15 (4 tabs)] Route: PO; Order Results: Lab Order: CBC with Diff; SPEC'M 07/14/16 01:32 Test: WHITE BLOOD COUNT; Value: 14.2; Range: 4.0-10.0; Abnormal: Above high normal; Units: K/mm3; Status: F Test: RED BLOOD COUNT; Value: 5.40; Range: 4.00-5.40; Units: M/mm3; Status: F Test: HEMOGLOBIN; Value: 14.6; Range: 12.0-16.0; Units: g/dl; Status: F Test: HEMATOCRIT; Value: 44.4; Range: 36.0-47.0; Units: %; Status: F Test: MEAN CORPUSCULAR VOLUME; Value: 82.3; Range: 80.0-96.0; Units: fl; Status: F Test: MEAN CORPUSCULAR HEMOGLOBIN; Value: 27.0; Range: 27.0-33.0; Units: pg; Status: F Test: MEAN CORPUSCULAR HGB CONC; Value: 32.9; Range: 32.0-36.5; Units: g/dl; Status: F Test: RED CELL DISTRIBUTION WIDTH; Value: 15.2; Range: 11.5-14.5; Abnormal: Above high normal; Units: %; Status: F Test: PLATELET COUNT, AUTOMATED; Value: 268; Range: 150-450; Units: k/mm3; Status: F Test: NEUTROPHILS %; Value: 81.9; Range: 36.0-66.0; Abnormal: Above high normal; Units: %; Status: F Test: LYMPH %; Value: 11.7; Range: 24.0-44.0; Abnormal: Below low normal; Units: %; Status: F Test: MONO %; Value: 4.1; Range: 0.0-5.0; Units: %; Status: F Test: EOS %; Value: 0.6; Range: 0.0-3.0; Units: %; Status: F Test: BASO %; Value: 0.2; Range: 0.0-1.0; Units: %; Status: F Test: LARGE UNSTAINED CELL %; Value: 1.5; Range: 0.0-4.0; Units: %; Status: F Test: NEUTROPHILS #; Value: 11.7; Range: 1.8-7.7; Abnormal: Above high normal; Units: K/mm3; Status: F Test: LYMPH #; Value: 1.7; Range: 1.5-4.5; Units: K/mm3; Status: F Test: MONO #; Value: 0.6; Range: 0.0-0.8; Units: K/mm3; Status: F Test: EOS #; Value: 0.1; Range: 0.0-0.50; Units: K/mm3; Status: F Test: BASO #; Value: 0.0; Range: 0.0-0.2; Units: K/mm3; Status: F Test: LARGE UNSTAINED CELL #; Value: 0.2; Range: 0.0-0.4; Units: K/mm3; Status: F Lab Order: MED Profile; SPEC'M 07/14/16 01:32 Test: GLUCOSE, FASTING; Value: 113; Range: 70-105; Abnormal: Above high normal; Units: MG/DL; Status: F Test: BLOOD UREA NITROGEN; Value: 14; Range: 7-18; Units: MG/DL; Status: F Test: CREATININE FOR GFR; Value: 1.32; Range: 0.55-1.02; Abnormal: Above high normal; Units: MG/DL; Status: F Test: GLOMERULAR FILTRATION RATE; Value: 46.3; Range: >58; Abnormal: Below low normal; Status: F Test: SODIUM LEVEL; Value: 135; Range: 136-145; Abnormal: Below low normal; Units: MEQ/L; Status: F Test: POTASSIUM SERUM; Value: 2.8; Range: 3.5-5.1; Abnormal: Critical Low; Units: MEQ/L; Status: F Test: CHLORIDE LEVEL; Value: 98; Range: 98-107; Units: MEQ/L; Status: F Test: CARBON DIOXIDE LEVEL; Value: 30; Range: 21-32; Units: MEQ/L; Status: F Test: ANION GAP; Value: 7; Range: 8-16; Abnormal: Below low normal; Units: MEQ/L; Status: F Test: CALCIUM LEVEL; Value: 8.5; Range: 8.5-10.1; Units: MG/DL; Status: F Test Note: ; Units are mL/min/1.73 m2 Chronic Kidney Disease Staging per NKF: Stage I & II GFR >=60 Normal to Mildly Decreased Stage III GFR 30-59 Moderately Decreased Stage IV GFR 15-29 Severely Decreased Stage V GFR <15 Very Little GFR Left ESRD GFR <15 on WELL CLEANER Lab Order: Pt & Aptt; SPEC'07/14/16 01:32 Test: PROTHROMBIN TIME; Value: 54.4; Range: 12.3-14.5; Abnormal: Above high normal; Units: SECONDS; Status: F Test: INR; Value: 6.15; Abnormal: Above upper panic limits; Status: F Test: PARTIAL THROMBOPLASTIN TIME; Value: 119.3; Range: 26.6-37.1; Abnormal: Above high normal; Units: SECONDS; Status: F Test Note: ; THERAPUTIC HUMAN INR VALUES INDICATIONS NORMAL RANGES PROPHYLAXIS/TREATMENT OF: VENOUS THROMBOSIS 2.0-3.0 PULMONARY EMBOLISM 2.0-3.0 PREVENTION OF SYSTEMIC EMBOLISM FROM: TISSUE HEART VALVES 2.0-3.0 ACUTE MYOCARDIAL INFARCTION 2.0-3.0 VALVULAR HEART DISEASE 2.0-3.0 ATRIAL FIBRILLATION 2.0-3.0 MECHANICAL VALVES(HIGH RISK) 2.5-3.5 RECURRENT MYOCARDIAL INFARCTION 2.5-3.5 Lab Order: Liver Profile; SPEC07/14/16 01:32 Test: AST/SGOT; Value: 24; Range: 15-37; Units: U/L; Status: F Test: ALT/SGPT; Value: 19; Range: 12-78; Units: U/L; Status: F Test: ALKALINE PHOSPHATASE; Value: 180; Range: 45-117; Abnormal: Above high normal; Units: U/L; Status: F Test: BILIRUBIN,TOTAL; Value: 0.5; Range: 0.2-1.0; Units: MG/DL; Status: F Test: BILIRUBIN,DIRECT; Value: 0.1; Range: 0.0-0.2; Units: MG/DL; Status: F Test: TOTAL PROTEIN; Value: 8.7; Range: 6.4-8.2; Abnormal: Above high normal; Units: GM/DL; Status: F Test: ALBUMIN; Value: 3.7; Range: 3.2-5.2; Units: GM/DL; Status: F Test: ALBUMIN/GLOBULIN RATIO; Value: 0.74; Range: 1.00-1.93; Abnormal: Below low normal; Status: F Lab Order: Ammonia (Little Green Tube on Ice, Not Pea Green); SPEC'M 07/14/16 01:32 Test: AMMONIA; Value: < 10; Range: <32; Units: uMOL/L; Status: F Radiology Order: Hand, Complete Test: Hand, Complete REASON FOR EXAMINATION: Trauma; Clinical: Trauma.; ; Technique: AP, lateral, bilateral oblique views right hand .; ; Findings: The osseous structures and joint spaces are intact and normal. There; is no evidence for acute fracture or dislocation. Surrounding soft tissues are; unremarkable. No subcutaneous emphysema or radiodense foreign body.; ; Impression:; No acute fracture or dislocation.; ; ; Signed by; Trent Segundo MD 07/14/2016 02:01 A; Outcome: 02:35 Discharge ordered by Provider. 11 03:17 Discharge Assessment: Patient awake, alert and oriented x 3. No cognitive and/or af2 functional deficits noted. Patient verbalized understanding of disposition instructions. patient administered narcotics - no. The following High Risk Discharge criteria are identified: None. Discharged to home ambulatory, with significant other. Condition: stable. Discharge instructions given to patient, Instructed on discharge instructions, follow up and referral plans. medication usage, Demonstrated understanding of instructions, medications, Pt was receptive of discharge instructions/ teaching. No special radiology studies were completed. Property :Personal belongings accompany Pt. 03:28 Patient left the ED. js15 Signatures: Dispatcher [employer] EDMS Elisa Hoover, RN RN kmg1 Hal Sarmiento Gloria, Reg Reg Reina JainRN RN lf1 Gilberto Guerrero DO DO cs11 Brigid Bynum 2 Nyla Marion Amber, RN RN af2 Perlita Gonzalez,RN RN js15 Chart Complete MTDD
== END 2016-07-14 03:28 | disposition home or self-care (01) ==
LOC: M ED 23:29
DX: R79.1 Abnormal coagulation profile (principal); T45.515A Adverse effect of anticoagulants, initial encounter; I10 Essential (primary) hypertension; I48.91 Unspecified atrial fibrillation; J44.9 Chronic obstructive pulmonary disease, unspecified; K21.9 Gastro-esophageal reflux disease without esophagitis; G47.30 Sleep apnea, unspecified; F17.200 Nicotine dependence, unspecified, uncomplicated; Z79.899 Other long term (current) drug therapy; Z79.01 Long term (current) use of anticoagulants; Z79.51 Long term (current) use of inhaled steroids; Z88.0 Allergy status to penicillin; Z88.2 Allergy status to sulfonamides; Z88.8 Allergy status to other drugs, medicaments and biological substances; Z91.040 Latex allergy status
CPT/HCPCS: 73130; 80048; 80076; 82140; 85025; 85610; 85730; 96374; 99284; J3430

== ENCOUNTER → 2016-07-14 | Outpatient (CLI) | payer OTHER ==
[2016-07-14 17:09] LABS: CALCIUM LEVEL 9.2 MG/DL (8.5-10.1); CREATININE FOR GFR 1.22 MG/DL (0.55-1.02); GLOMERULAR FILTRATION RATE 50.7 (>58)
[2016-07-14 17:54] LABS: POTASSIUM SERUM 3.6 MEQ/L (3.5-5.1)
== END | disposition home or self-care (01) ==
LOC: M LAB 15:29
PROVIDERS: ATTEND Internal Medicine Cardiovascular Disease
DX: Z95.2 Presence of prosthetic heart valve (principal)

== ENCOUNTER 2016-08-03 09:48 | Emergency (ER) | payer OTHER ==
[2016-08-03] MEDS ORDERED: ONDANSETRON 4MG/2ML VIAL (J2405) As Ordered ONE (10:20)
[2016-08-03 10:37] LABS: BASO % 0.6 % (0.0-1.0); EOS # 0.3 K/mm3 (0.0-0.50); EOS % 3.7 % (0.0-3.0); LARGE UNSTAINED CELL # 0.4 K/mm3 (0.0-0.4); LARGE UNSTAINED CELL % 5.4 % (0.0-4.0); LYMPH # 1.5 K/mm3 (1.5-4.5); LYMPH % 19.4 % (24.0-44.0); MEAN CORPUSCULAR HEMOGLOBIN 27.4 pg (27.0-33.0); MEAN CORPUSCULAR HGB CONC 33.2 g/dl (32.0-36.5); MEAN CORPUSCULAR VOLUME 82.5 fl (80.0-96.0); MONO # 0.6 K/mm3 (0.0-0.8); MONO % 7.3 % (0.0-5.0); NEUTROPHILS % 63.6 % (36.0-66.0); PLATELET COUNT, AUTOMATED 219 k/mm3 (150-450); RED CELL DISTRIBUTION WIDTH 16.4 % (11.5-14.5); WHITE BLOOD COUNT 7.9 K/mm3 (4.0-10.0)
[2016-08-03 11:06] LABS: ALBUMIN 3.7 GM/DL (3.2-5.2); ALBUMIN/GLOBULIN RATIO 0.88 (1.00-1.93); ALKALINE PHOSPHATASE 168 U/L (45-117); ALT/SGPT 15 U/L (12-78); ANION GAP 9 MEQ/L (8-16); AST/SGOT 21 U/L (15-37); BILIRUBIN,DIRECT < 0.1 MG/DL (0.0-0.2); BILIRUBIN,TOTAL 0.4 MG/DL (0.2-1.0); BLOOD UREA NITROGEN 12 MG/DL (7-18); CALCIUM LEVEL 8.6 MG/DL (8.5-10.1); CARBON DIOXIDE LEVEL 27 MEQ/L (21-32); CHLORIDE LEVEL 102 MEQ/L (98-107); CREATININE FOR GFR 1.11 MG/DL (0.55-1.02); GLOMERULAR FILTRATION RATE 56.6 (>58); GLUCOSE, FASTING 100 MG/DL (70-105); POTASSIUM SERUM 3.1 MEQ/L (3.5-5.1); SODIUM LEVEL 138 MEQ/L (136-145); TOTAL PROTEIN 7.9 GM/DL (6.4-8.2)
--- NOTE | 2016-08-03 11:44 | EDDOCDS ---
Physician Documentation [facility] Name: Laura Musa Age: 46 yrs Sex: Female : 1970 Arrival Date: 08/03/2016 Time: 09:48 Bed I3 / M3 Private MD: Jeb Tan MD Disposition: 08/03/16 11:30 Discharged to Home/Self Care. Impression: Hypokalemia, Nausea and vomiting, Diarrhea, unspecified. - Condition is Stable. - Discharge Instructions: Nausea and Vomiting, Viral Gastroenteritis, Hypokalemia. - Prescriptions for ZOFRAN ODT 4 mg - dissolve 1 tablet by ORAL route 4 times per day As needed do not chew, do not swallow whole; 10 tablet. Potassium Chloride 20 mEq Oral Tablet Extended Release - take 1 tablet by ORAL route once daily; 10 tablet. - Medication Reconciliation form. - Follow up: Jeb Tan; When: Tomorrow; Reason: Wound/Symptom Recheck, Recheck today's complaints, Worsening of conditions, Continuance of care. - Problem is an ongoing problem. - Symptoms have improved. - Notes: Follow up with your regular doctor for a recheck of your potassium level. Historical: - Allergies: Aspirin (throat closing); Latex (Hives); PENICILLINS (throat closing); SULFA (SULFONAMIDES) (Hives); - Home Meds: 1. albuterol sulfate 90 mcg/actuation Inhl HFAA 1 puff every 4 hours (Last dose: 08/03/2016 08:00) 2. Breo Ellipta 100-25 mcg/dose inhalation dsdv 1 puff once daily (Last dose: 08/03/2016 08:00) 3. cetirizine 10 mg oral tab 1 tab once daily (Last dose: 08/02/2016) 4. Claritin 10 mg Oral tab 1 tab once daily (Last dose: 08/02/2016) 5. Coumadin 5 mg Oral tab 1 tab once daily (Last dose: 08/02/2016) 6. furosemide 40 mg Oral tab 1 tab once daily (Last dose: 08/02/2016) 7. gabapentin 300 mg Oral cap 1 cap twice a day (Last dose: 08/02/2016) 8. metoprolol tartrate 25 mg Oral tab 0.5 tab three times a day (Last dose: 08/02/2016) 9. montelukast 10 mg oral tab 1 tab nightly (Last dose: 08/02/2016) 10. omeprazole 20 mg Oral cpDR 1 cap 2 times per day (Last dose: 08/02/2016) 11. oxybutynin chloride 5 mg Oral tr24 1 tab twice a day (Last dose: 08/02/2016) 12. Oxygen 3 liters nightly 13. ranitidine HCl 150 mg Oral tab 1 tab 2 times per day (Last dose: 08/02/2016) 14. spironolactone 25 mg Oral tab 1 tab once daily (Last dose: 08/02/2016) 15. tizanidine 4 mg oral tab 2 tabs every 8 hours as needed (Last dose: 08/02/2016) - PMHx: Atrial Fib; COPD; GERD; Seasonal Allergies; - PSHx: Aortic valve replacement, 2014; LEAP procedure; Tubal ligation; Cervical ablation; - Social history: Smoking status: Patient uses tobacco products, current every day smoker. No barriers to communication noted, The patient speaks fluent Grenadian. - Family history: Not pertinent. - : The pt / caregiver states he / she is on anticoagulants: coumadin. Home medication list is obtained from the patient. - Exposure Risk Screening:: None identified. 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 5 in. (165.10 cm); Pain 0/10; 11:41 BP 135 / 88; Pulse 88; Resp 18; Temp 98(T); Pulse Ox 100% on R/A; Pain 0/10; rs3 09:51 Body Mass Index 29.12 (79.38 kg, 165.10 cm) jrd MDM: 10:13 NS 0.9% 1000 ml IV at bolus once ordered. cc10 10:13 Ondansetron 4 mg IVP once ordered. cc10 10:13 IV Saline Lock ordered. cc10 10:13 Undress patient appropriately for examination ordered. cc10 10:14 Basic Metabolic Profile Ordered. EDMS 10:15 CBC with Diff Ordered. EDMS 10:15 Lipase Ordered. EDMS 10:15 Liver Profile Ordered. EDMS 10:15 Urinalysis Ordered. EDMS 10:15 Urine Culture Ordered. EDMS 10:15 NOTHING BY MOUTH+DIET ordered. EDMS 10:35 Financial registration complete. mm15 10:42 [facility] Payment Agreement was scanned into [employer] and attached to record. mm15 11:26 Basic Metabolic Profile Reviewed. cc10 11:26 CBC with Diff Reviewed. cc10 11:26 Liver Profile Reviewed. cc10 11:26 Lipase Reviewed. cc10 Administered Medications: 10:29 Drug: NS 0.9% 1000 ml [sodium chloride 0.9 % injection solution] Route: IV; Rate: dy bolus; Site: left antecubital; 11:42 Follow up: IV Status: Completed infusion rs3 10:29 Drug: Ondansetron 4 mg [ondansetron HCl 2 mg/mL intravenous solution (2 mL)] Route: dy IVP; Site: left antecubital; 11:14 Follow up: Response: Nausea is resolved dy Signatures: Dispatcher [employer] EDMS Alexis Toth RN RN dwJeanie Orozco RN RN rs3 Leo Valladares mm15 Fausto Antunez, PADes PA-C cc10 Thomas Mcfadden RN dy The chart was reviewed and I authenticate all verbal orders and agree with the evaluation and treatment provided.Attachments: 10:42 [facility] Payment Agreement mm15 MTDD
--- NOTE | 2016-08-03 11:44 | EDDOCDS ---
Nurse's Notes [facility] Name: Laura Musa Age: 46 yrs Sex: Female : 1970 Arrival Date: 08/03/2016 Time: 09:48 Bed I3 / M3 Private MD: Jeb Tan MD Diagnosis: Hypokalemia;Nausea and vomiting;Diarrhea, unspecified Presentation: 08/03 09:53 Presenting complaint: Patient states: Nausea, vomiting and diarrhea, symptoms since dwg 07/30/16. Adult Sepsis Screening: The patient does not have new or worsening altered mentation. Patient's respiratory rate is less than 22. Systolic blood pressure is greater than 100. Patient has a qSOFA score of 0- Negative Sepsis Screen. Suicide/Homicide risk assessment- the patient denies having any suicidal and/or homicidal ideations and does not present with any other emotional, behavioral or mental health complaints. Status: Patient is not a technical services assistant or dependent. Transition of care: patient was not received from another setting of care. 09:53 Acuity: SANTOSH Level 3 dwg 09:53 Method Of Arrival: Walkin/Carried/Asstd dwg Triage Assessment: 09:58 General: Appears in no apparent distress, uncomfortable. Pain: Pain currently is 5 out dwg of 10 on a pain scale. HIV screening NA for this visit Offered previously. 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 albuterol sulfate 90 mcg/actuation Inhl HFAA 1 puff every 4 hours (Last dose: 08/03/2016 08:00) 2. Breo Ellipta 100-25 mcg/dose inhalation dsdv 1 puff once daily (Last dose: 08/03/2016 08:00) 3. cetirizine 10 mg oral tab 1 tab once daily (Last dose: 08/02/2016) 4. Claritin 10 mg Oral tab 1 tab once daily (Last dose: 08/02/2016) 5. Coumadin 5 mg Oral tab 1 tab once daily (Last dose: 08/02/2016) 6. furosemide 40 mg Oral tab 1 tab once daily (Last dose: 08/02/2016) 7. gabapentin 300 mg Oral cap 1 cap twice a day (Last dose: 08/02/2016) 8. metoprolol tartrate 25 mg Oral tab 0.5 tab three times a day (Last dose: 08/02/2016) 9. montelukast 10 mg oral tab 1 tab nightly (Last dose: 08/02/2016) 10. omeprazole 20 mg Oral cpDR 1 cap 2 times per day (Last dose: 08/02/2016) 11. oxybutynin chloride 5 mg Oral tr24 1 tab twice a day (Last dose: 08/02/2016) 12. Oxygen 3 liters nightly 13. ranitidine HCl 150 mg Oral tab 1 tab 2 times per day (Last dose: 08/02/2016) 14. spironolactone 25 mg Oral tab 1 tab once daily (Last dose: 08/02/2016) 15. tizanidine 4 mg oral tab 2 tabs every 8 hours as needed (Last dose: 08/02/2016) - PMHx: Atrial Fib; COPD; GERD; Seasonal Allergies; - PSHx: Aortic valve replacement, 2015; LEAP procedure; Tubal ligation; Cervical ablation; - Social history: Smoking status: Patient uses tobacco products, current every day smoker. No barriers to communication noted, The patient speaks fluent Armenian. - Family history: Not pertinent. - : The pt / caregiver states he / she is on anticoagulants: coumadin. Home medication list is obtained from the patient. - Exposure Risk Screening:: None identified. Screenin:31 Screening information is obtained from the patient. Fall risk: No risks identified. dy Assistance ADL's: requires no assistance with activities of daily living. Abuse/DV Screen: The patient / caregiver reports he/she is: not in a situation that causes fear, pain or injury. Nutritional screening: No deficits noted. Advance Directives: There is no active DNR order. home support is adequate. Assessment: 10:31 General: Appears in no apparent distress, Behavior is appropriate for age, cooperative. dy Pain: Denies pain. Neurological: No deficits noted. Respiratory: Airway is patent Respiratory effort is even, unlabored. GI: Abdomen is flat, non- distended Bowel sounds present X 4 quads. Abd is soft and non tender X 4 quads. GI: Reports diarrhea, nausea, vomiting. Derm: Skin is pink, warm & dry. 11:14 General: Appears in no apparent distress, Behavior is appropriate for age, cooperative. dy Pain: Denies pain. GI: Denies nausea. 11:41 Reassessment: Patient appears in no apparent distress at this time. Patient denies pain rs3 at this time. Patient states feeling better. Patient states symptoms have improved. Vital Signs: 09:51 BP 164 / 98; Pulse 104; Resp 20; Temp 97.8(O); Pulse Ox 100% on R/A; Weight 79.38 kg; jrd Height 5 ft. 5 in. (165.10 cm); Pain 0/10; 11:41 BP 135 / 88; Pulse 88; Resp 18; Temp 98(T); Pulse Ox 100% on R/A; Pain 0/10; rs3 09:51 Body Mass Index 29.12 (79.38 kg, 165.10 cm) [facility] Vitals: 09:51 Log In Time: August 03, 2016 at 09:48. [facility] ED Course: 09:50 Patient visited by Neo Valadez PCA. jrd 09:50 Patient moved to Waiting jrd 09:51 Jeb Tan is Private Physician. jrd 09:52 Patient visited by Neo Valadez PCA. jrd 09:52 Patient moved to Pre RCE jrd 09:54 Triage Initiated dwg 09:59 Patient moved to Triage 1 dwg 10:02 [facility]ust[facility] Antunez [facility] cc10 10:02 Walter Contreras MD is Attending Physician. cc10 10:05 Patient visited by Fausto Antunez PA-C. cc10 10:05 Patient visited by Fausto Antunez PA-C. cc10 10:14 Patient moved to I3 / dy 10:27 Inserted saline lock: 20 gauge in left antecubital area and blood collected. The dy patient tolerated the procedure well. 10:27 Labs drawn. (by ED staff). Sent per order to lab. dy 10:29 Basic Metabolic Profile Sent. dy 10:29 CBC with Diff Sent. dy 10:29 Lipase Sent. dy 10:29 Liver Profile Sent. dy 10:31 The patient / caregiver is instructed regarding the plan of care and ED course. Patient dy has correct armband on for positive identification. Placed in gown. Bed in low position. Call light in reach. Side rails up X 1. 10:32 Patient visited by Thomas Mcfadden RN. dy 10:42 [facility] Payment Agreement was scanned into [employer] and attached to record. mm15 10:57 Patient visited by Ángel Beauchamp PCA. jlf 11:08 Patient visited by Ángel Beauchamp PCA. jlf 11:08 Warm blanket given. jlf 11:15 Patient visited by Thomas Mcfadden RN. dy 11:30 Jeb Tan is Referral Physician. cc10 11:43 Discontinued lock bleeding controlled, pressure dressing applied, No redness/swelling rs3 at site. No procedures done that require assistance. Administered Medications: 10:29 Drug: NS 0.9% 1000 ml [sodium chloride 0.9 % injection solution] Route: IV; Rate: dy bolus; Site: left antecubital; 11:42 Follow up: IV Status: Completed infusion rs3 10:29 Drug: Ondansetron 4 mg [ondansetron HCl 2 mg/mL intravenous solution (2 mL)] Route: dy IVP; Site: left antecubital; 11:14 Follow up: Response: Nausea is resolved dy Order Results: Lab Order: Basic Metabolic Profile; SPEC'M 08/03/16 10:28 Test: GLUCOSE, FASTING; Value: 100; Range: 70-105; Units: MG/DL; Status: F Test: BLOOD UREA NITROGEN; Value: 12; Range: 7-18; Units: MG/DL; Status: F Test: CREATININE FOR GFR; Value: 1.11; Range: 0.55-1.02; Abnormal: Above high normal; Units: MG/DL; Status: F Test: GLOMERULAR FILTRATION RATE; Value: 56.6; Range: >58; Abnormal: Below low normal; Status: F Test: SODIUM LEVEL; Value: 138; Range: 136-145; Units: MEQ/L; Status: F Test: POTASSIUM SERUM; Value: 3.1; Range: 3.5-5.1; Abnormal: Below low normal; Units: MEQ/L; Status: F Test: CHLORIDE LEVEL; Value: 102; Range: 98-107; Units: MEQ/L; Status: F Test: CARBON DIOXIDE LEVEL; Value: 27; Range: 21-32; Units: MEQ/L; Status: F Test: ANION GAP; Value: 9; Range: 8-16; Units: MEQ/L; Status: F Test: CALCIUM LEVEL; Value: 8.6; Range: 8.5-10.1; Units: MG/DL; Status: F Test Note: ; Units are mL/min/1.73 m2 Chronic Kidney Disease Staging per NKF: Stage I & II GFR >=60 Normal to Mildly Decreased Stage III GFR 30-59 Moderately Decreased Stage IV GFR 15-29 Severely Decreased Stage V GFR <15 Very Little GFR Left ESRD GFR <15 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 Lab Order: CBC with Diff; SPEC'M 08/03/16 10:28 Test: WHITE BLOOD COUNT; Value: 7.9; Range: 4.0-10.0; Units: K/mm3; Status: F Test: RED BLOOD COUNT; Value: 5.67; Range: 4.00-5.40; Abnormal: Above high normal; Units: M/mm3; Status: F Test: HEMOGLOBIN; Value: 15.5; Range: 12.0-16.0; Units: g/dl; Status: F Test: HEMATOCRIT; Value: 46.8; Range: 36.0-47.0; Units: %; Status: F Test: MEAN CORPUSCULAR VOLUME; Value: 82.5; Range: 80.0-96.0; Units: fl; Status: F Test: MEAN CORPUSCULAR HEMOGLOBIN; Value: 27.4; Range: 27.0-33.0; Units: pg; Status: F Test: MEAN CORPUSCULAR HGB CONC; Value: 33.2; Range: 32.0-36.5; Units: g/dl; Status: F Test: RED CELL DISTRIBUTION WIDTH; Value: 16.4; Range: 11.5-14.5; Abnormal: Above high normal; Units: %; Status: F Test: PLATELET COUNT, AUTOMATED; Value: 219; Range: 150-450; Units: k/mm3; Status: F Test: NEUTROPHILS %; Value: 63.6; Range: 36.0-66.0; Units: %; Status: F Test: LYMPH %; Value: 19.4; Range: 24.0-44.0; Abnormal: Below low normal; Units: %; Status: F Test: MONO %; Value: 7.3; Range: 0.0-5.0; Abnormal: Above high normal; Units: %; Status: F Test: EOS %; Value: 3.7; Range: 0.0-3.0; Abnormal: Above high normal; Units: %; Status: F Test: BASO %; Value: 0.6; Range: 0.0-1.0; Units: %; Status: F Test: LARGE UNSTAINED CELL %; Value: 5.4; Range: 0.0-4.0; Abnormal: Above high normal; Units: %; Status: F Test: NEUTROPHILS #; Value: 5.0; Range: 1.8-7.7; Units: K/mm3; Status: F Test: LYMPH #; Value: 1.5; Range: 1.5-4.5; Units: K/mm3; Status: F Test: MONO #; Value: 0.6; Range: 0.0-0.8; Units: K/mm3; Status: F Test: EOS #; Value: 0.3; Range: 0.0-0.50; Units: K/mm3; Status: F Test: BASO #; Value: 0.0; Range: 0.0-0.2; Units: K/mm3; Status: F Test: LARGE UNSTAINED CELL #; Value: 0.4; Range: 0.0-0.4; Units: K/mm3; Status: F Lab Order: Lipase; [facility] 08/03/16 10:28 Test: LIPASE; Value: 130; Range: 73-393; Units: U/L; Status: F Lab Order: Liver Profile; [facility] 08/03/16 10:28 Test: AST/SGOT; Value: 21; Range: 15-37; Units: U/L; Status: F Test: ALT/SGPT; Value: 15; Range: 12-78; Units: U/L; Status: F Test: ALKALINE PHOSPHATASE; Value: 168; Range: 45-117; Abnormal: Above high normal; Units: U/L; Status: F Test: BILIRUBIN,TOTAL; Value: 0.4; Range: 0.2-1.0; Units: MG/DL; Status: F Test: BILIRUBIN,DIRECT; Value: < 0.1; Range: 0.0-0.2; Units: MG/DL; Status: F Test: TOTAL PROTEIN; Value: 7.9; Range: 6.4-8.2; Units: GM/DL; Status: F Test: ALBUMIN; Value: 3.7; Range: 3.2-5.2; Units: GM/DL; Status: F Test: ALBUMIN/GLOBULIN RATIO; Value: 0.88; Range: 1.00-1.93; Abnormal: Below low normal; Status: F Outcome: 11:30 Discharge ordered by Provider. cc10 11:42 Discharge Assessment: patient administered narcotics - no. The following High Risk rs3 Discharge criteria are identified: None. Discharged to home ambulatory. Condition: stable. Discharge instructions given to patient, Instructed on discharge instructions, follow up and referral plans. medication usage, Demonstrated understanding of instructions, medications, Pt was receptive of discharge instructions/ teaching. No special radiology studies were completed. Property :Personal belongings accompany Pt. 11:43 Patient left the ED. rs3 Signatures: Alexis Toth RN RN Thomas Lawrence, RN Jeanie Putnam RN RN rs3 Leo Valladares mm15 Ángel Beauchamp, SUPERVISOR [employer] SUPERVISOR FE[employer] MILL Fausto Giraldo PA-C PADes cc10 Neo Valadez, SUPERVISOR [employer]ILL SUPERVISOR FE[employer] MILL jrd MTDD
--- NOTE | 2016-08-05 12:44 | EDDOCDS ---
Physician Documentation [facility] Name: Laura Musa Age: 46 yrs Sex: Female : 1970 Arrival Date: 08/03/2016 Time: 09:48 Bed I3 / M3 Private MD: Jeb Tan MD Disposition: 08/03/16 11:30 Discharged to Home/Self Care. Impression: Hypokalemia, Nausea and vomiting, Diarrhea, unspecified. - Condition is Stable. - Discharge Instructions: Nausea and Vomiting, Viral Gastroenteritis, Hypokalemia. - Prescriptions for ZOFRAN ODT 4 mg - dissolve 1 tablet by ORAL route 4 times per day As needed do not chew, do not swallow whole; 10 tablet. Potassium Chloride 20 mEq Oral Tablet Extended Release - take 1 tablet by ORAL route once daily; 10 tablet. - Medication Reconciliation form. - Follow up: Jeb Tan; When: Tomorrow; Reason: Wound/Symptom Recheck, Recheck today's complaints, Worsening of conditions, Continuance of care. - Problem is an ongoing problem. - Symptoms have improved. - Notes: Follow up with your regular doctor for a recheck of your potassium level. Historical: - Allergies: Aspirin (throat closing); Latex (Hives); PENICILLINS (throat closing); SULFA (SULFONAMIDES) (Hives); - Home Meds: 1. albuterol sulfate 90 mcg/actuation Inhl HFAA 1 puff every 4 hours (Last dose: 08/03/2016 08:00) 2. Breo Ellipta 100-25 mcg/dose inhalation dsdv 1 puff once daily (Last dose: 08/03/2016 08:00) 3. cetirizine 10 mg oral tab 1 tab once daily (Last dose: 08/02/2016) 4. Claritin 10 mg Oral tab 1 tab once daily (Last dose: 08/02/2016) 5. Coumadin 5 mg Oral tab 1 tab once daily (Last dose: 08/02/2016) 6. furosemide 40 mg Oral tab 1 tab once daily (Last dose: 08/02/2016) 7. gabapentin 300 mg Oral cap 1 cap twice a day (Last dose: 08/02/2016) 8. metoprolol tartrate 25 mg Oral tab 0.5 tab three times a day (Last dose: 08/02/2016) 9. montelukast 10 mg oral tab 1 tab nightly (Last dose: 08/02/2016) 10. omeprazole 20 mg Oral cpDR 1 cap 2 times per day (Last dose: 08/02/2016) 11. oxybutynin chloride 5 mg Oral tr24 1 tab twice a day (Last dose: 08/02/2016) 12. Oxygen 3 liters nightly 13. ranitidine HCl 150 mg Oral tab 1 tab 2 times per day (Last dose: 08/02/2016) 14. spironolactone 25 mg Oral tab 1 tab once daily (Last dose: 08/02/2016) 15. tizanidine 4 mg oral tab 2 tabs every 8 hours as needed (Last dose: 08/02/2016) - PMHx: Atrial Fib; COPD; GERD; Seasonal Allergies; - PSHx: Aortic valve replacement, 2014; LEAP procedure; Tubal ligation; Cervical ablation; - Social history: Smoking status: Patient uses tobacco products, current every day smoker. No barriers to communication noted, The patient speaks fluent Norwegian. - Family history: Not pertinent. - : The pt / caregiver states he / she is on anticoagulants: coumadin. Home medication list is obtained from the patient. - Exposure Risk Screening:: None identified. 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 5 in. (165.10 cm); Pain 0/10; 11:41 BP 135 / 88; Pulse 88; Resp 18; Temp 98(T); Pulse Ox 100% on R/A; Pain 0/10; rs3 09:51 Body Mass Index 29.12 (79.38 kg, 165.10 cm) jrd MDM: 10:13 NS 0.9% 1000 ml IV at bolus once ordered. cc10 10:13 Ondansetron 4 mg IVP once ordered. cc10 10:13 IV Saline Lock ordered. cc10 10:13 Undress patient appropriately for examination ordered. cc10 10:14 Basic Metabolic Profile Ordered. EDMS 10:15 CBC with Diff Ordered. EDMS 10:15 Lipase Ordered. EDMS 10:15 Liver Profile Ordered. EDMS 10:15 Urinalysis Ordered. EDMS 10:15 Urine Culture Ordered. EDMS 10:15 NOTHING BY MOUTH+DIET ordered. EDMS 10:35 Financial registration complete. mm15 10:42 [facility] Payment Agreement was scanned into [employer] and attached to record. mm15 11:26 Basic Metabolic Profile Reviewed. cc10 11:26 CBC with Diff Reviewed. cc10 11:26 Liver Profile Reviewed. cc10 11:26 Lipase Reviewed. [facility] 13:34 T-Sheet-- Draft Copy was scanned into [employer] and attached to record. [facility] 08/04 09:30 T-Sheet-- Draft Copy was scanned into [employer] and attached to record. gb Administered Medications: 08/03 10:29 Drug: NS 0.9% 1000 ml [sodium chloride 0.9 % injection solution] Route: IV; Rate: dy bolus; Site: left antecubital; 11:42 Follow up: IV Status: Completed infusion rs3 10:29 Drug: Ondansetron 4 mg [ondansetron HCl 2 mg/mL intravenous solution (2 mL)] Route: dy IVP; Site: left antecubital; 11:14 Follow up: Response: Nausea is resolved dy Signatures: Dispatcher [employer] EDAlexis Tompkins RN RN dwg Barnhardt, Gloria, Reg Reg Jeanie Nice RN RN rs3 Leo Valladares mm15 Fausto Antunez PADes PA-Halina cc10 Bettina Trujillo David RN dy The chart was reviewed and I authenticate all verbal orders and agree with the evaluation and treatment provided.Attachments: : [facility] Payment Agreement mm15 13:34 T-Sheet-- Draft Copy [facility] Chart Complete MTDD
--- NOTE | 2016-08-05 12:44 | EDDOCDS ---
Physician Documentation [facility] Name: Laura Musa Age: 46 yrs Sex: Female : 1970 Arrival Date: 08/03/2016 Time: 09:48 Bed I3 / M3 Private MD: Jeb Tan MD Disposition: 08/03/16 11:30 Discharged to Home/Self Care. Impression: Hypokalemia, Nausea and vomiting, Diarrhea, unspecified. - Condition is Stable. - Discharge Instructions: Nausea and Vomiting, Viral Gastroenteritis, Hypokalemia. - Prescriptions for ZOFRAN ODT 4 mg - dissolve 1 tablet by ORAL route 4 times per day As needed do not chew, do not swallow whole; 10 tablet. Potassium Chloride 20 mEq Oral Tablet Extended Release - take 1 tablet by ORAL route once daily; 10 tablet. - Medication Reconciliation form. - Follow up: Jeb Tan; When: Tomorrow; Reason: Wound/Symptom Recheck, Recheck today's complaints, Worsening of conditions, Continuance of care. - Problem is an ongoing problem. - Symptoms have improved. - Notes: Follow up with your regular doctor for a recheck of your potassium level. Historical: - Allergies: Aspirin (throat closing); Latex (Hives); PENICILLINS (throat closing); SULFA (SULFONAMIDES) (Hives); - Home Meds: 1. albuterol sulfate 90 mcg/actuation Inhl HFAA 1 puff every 4 hours (Last dose: 08/03/2016 08:00) 2. Breo Ellipta 100-25 mcg/dose inhalation dsdv 1 puff once daily (Last dose: 08/03/2016 08:00) 3. cetirizine 10 mg oral tab 1 tab once daily (Last dose: 08/02/2016) 4. Claritin 10 mg Oral tab 1 tab once daily (Last dose: 08/02/2016) 5. Coumadin 5 mg Oral tab 1 tab once daily (Last dose: 08/02/2016) 6. furosemide 40 mg Oral tab 1 tab once daily (Last dose: 08/02/2016) 7. gabapentin 300 mg Oral cap 1 cap twice a day (Last dose: 08/02/2016) 8. metoprolol tartrate 25 mg Oral tab 0.5 tab three times a day (Last dose: 08/02/2016) 9. montelukast 10 mg oral tab 1 tab nightly (Last dose: 08/02/2016) 10. omeprazole 20 mg Oral cpDR 1 cap 2 times per day (Last dose: 08/02/2016) 11. oxybutynin chloride 5 mg Oral tr24 1 tab twice a day (Last dose: 08/02/2016) 12. Oxygen 3 liters nightly 13. ranitidine HCl 150 mg Oral tab 1 tab 2 times per day (Last dose: 08/02/2016) 14. spironolactone 25 mg Oral tab 1 tab once daily (Last dose: 08/02/2016) 15. tizanidine 4 mg oral tab 2 tabs every 8 hours as needed (Last dose: 08/02/2016) - PMHx: Atrial Fib; COPD; GERD; Seasonal Allergies; - PSHx: Aortic valve replacement, 2014; LEAP procedure; Tubal ligation; Cervical ablation; - Social history: Smoking status: Patient uses tobacco products, current every day smoker. No barriers to communication noted, The patient speaks fluent Malaysian. - Family history: Not pertinent. - : The pt / caregiver states he / she is on anticoagulants: coumadin. Home medication list is obtained from the patient. - Exposure Risk Screening:: None identified. 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 5 in. (165.10 cm); Pain 0/10; 11:41 BP 135 / 88; Pulse 88; Resp 18; Temp 98(T); Pulse Ox 100% on R/A; Pain 0/10; rs3 09:51 Body Mass Index 29.12 (79.38 kg, 165.10 cm) jrd MDM: 10:13 NS 0.9% 1000 ml IV at bolus once ordered. cc10 10:13 Ondansetron 4 mg IVP once ordered. cc10 10:13 IV Saline Lock ordered. cc10 10:13 Undress patient appropriately for examination ordered. cc10 10:14 Basic Metabolic Profile Ordered. EDMS 10:15 CBC with Diff Ordered. EDMS 10:15 Lipase Ordered. EDMS 10:15 Liver Profile Ordered. EDMS 10:15 Urinalysis Ordered. EDMS 10:15 Urine Culture Ordered. EDMS 10:15 NOTHING BY MOUTH+DIET ordered. EDMS 10:35 Financial registration complete. mm15 10:42 [facility] Payment Agreement was scanned into [employer] and attached to record. mm15 11:26 Basic Metabolic Profile Reviewed. cc10 11:26 CBC with Diff Reviewed. cc10 11:26 Liver Profile Reviewed. cc10 11:26 Lipase Reviewed. [facility] 13:34 T-Sheet-- Draft Copy was scanned into [employer] and attached to record. [facility] 08/04 09:30 T-Sheet-- Draft Copy was scanned into [employer] and attached to record. gb Administered Medications: 08/03 10:29 Drug: NS 0.9% 1000 ml [sodium chloride 0.9 % injection solution] Route: IV; Rate: dy bolus; Site: left antecubital; 11:42 Follow up: IV Status: Completed infusion rs3 10:29 Drug: Ondansetron 4 mg [ondansetron HCl 2 mg/mL intravenous solution (2 mL)] Route: dy IVP; Site: left antecubital; 11:14 Follow up: Response: Nausea is resolved dy Signatures: Dispatcher [employer] EDAlexis Tompkins RN RN dwg Barnhardt, Gloria, Reg Reg Jeanie Nice RN RN rs3 Leo Valladares mm15 Fausto Antunez PADes PA-Halina cc10 Bettina Trujillo David RN dy The chart was reviewed and I authenticate all verbal orders and agree with the evaluation and treatment provided.Attachments: : [facility] Payment Agreement mm15 13:34 T-Sheet-- Draft Copy [facility] Chart Complete MTDD
--- NOTE | 2016-08-05 12:44 | EDDOCDS ---
Nurse's Notes [facility] Name: Laura Musa Age: 46 yrs Sex: Female : 1970 Arrival Date: 08/03/2016 Time: 09:48 Bed I3 / M3 Private MD: Jeb Tan MD Diagnosis: Hypokalemia;Nausea and vomiting;Diarrhea, unspecified Presentation: 08/03 09:53 Presenting complaint: Patient states: Nausea, vomiting and diarrhea, symptoms since dwg 07/30/16. Adult Sepsis Screening: The patient does not have new or worsening altered mentation. Patient's respiratory rate is less than 22. Systolic blood pressure is greater than 100. Patient has a qSOFA score of 0- Negative Sepsis Screen. Suicide/Homicide risk assessment- the patient denies having any suicidal and/or homicidal ideations and does not present with any other emotional, behavioral or mental health complaints. 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 Transition of care: patient was not received from another setting of care. 09:53 Acuity: SANTOSH Level 3 dwg 09:53 Method Of Arrival: Walkin/Carried/Asstd dwg Triage Assessment: 09:58 General: Appears in no apparent distress, uncomfortable. Pain: Pain currently is 5 out dwg of 10 on a pain scale. HIV screening NA for this visit Offered previously. 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 albuterol sulfate 90 mcg/actuation Inhl HFAA 1 puff every 4 hours (Last dose: 08/03/2016 08:00) 2. Breo Ellipta 100-25 mcg/dose inhalation dsdv 1 puff once daily (Last dose: 08/03/2016 08:00) 3. cetirizine 10 mg oral tab 1 tab once daily (Last dose: 08/02/2016) 4. Claritin 10 mg Oral tab 1 tab once daily (Last dose: 08/02/2016) 5. Coumadin 5 mg Oral tab 1 tab once daily (Last dose: 08/02/2016) 6. furosemide 40 mg Oral tab 1 tab once daily (Last dose: 08/02/2016) 7. gabapentin 300 mg Oral cap 1 cap twice a day (Last dose: 08/02/2016) 8. metoprolol tartrate 25 mg Oral tab 0.5 tab three times a day (Last dose: 08/02/2016) 9. montelukast 10 mg oral tab 1 tab nightly (Last dose: 08/02/2016) 10. omeprazole 20 mg Oral cpDR 1 cap 2 times per day (Last dose: 08/02/2016) 11. oxybutynin chloride 5 mg Oral tr24 1 tab twice a day (Last dose: 08/02/2016) 12. Oxygen 3 liters nightly 13. ranitidine HCl 150 mg Oral tab 1 tab 2 times per day (Last dose: 08/02/2016) 14. spironolactone 25 mg Oral tab 1 tab once daily (Last dose: 08/02/2016) 15. tizanidine 4 mg oral tab 2 tabs every 8 hours as needed (Last dose: 08/02/2016) - PMHx: Atrial Fib; COPD; GERD; Seasonal Allergies; - PSHx: Aortic valve replacement, 2015; LEAP procedure; Tubal ligation; Cervical ablation; - Social history: Smoking status: Patient uses tobacco products, current every day smoker. No barriers to communication noted, The patient speaks fluent Croatian. - Family history: Not pertinent. - : The pt / caregiver states he / she is on anticoagulants: coumadin. Home medication list is obtained from the patient. - Exposure Risk Screening:: None identified. Screenin:31 Screening information is obtained from the patient. Fall risk: No risks identified. dy Assistance ADL's: requires no assistance with activities of daily living. Abuse/DV Screen: The patient / caregiver reports he/she is: not in a situation that causes fear, pain or injury. Nutritional screening: No deficits noted. Advance Directives: There is no active DNR order. home support is adequate. Assessment: 10:31 General: Appears in no apparent distress, Behavior is appropriate for age, cooperative. dy Pain: Denies pain. Neurological: No deficits noted. Respiratory: Airway is patent Respiratory effort is even, unlabored. GI: Abdomen is flat, non- distended Bowel sounds present X 4 quads. Abd is soft and non tender X 4 quads. GI: Reports diarrhea, nausea, vomiting. Derm: Skin is pink, warm & dry. 11:14 General: Appears in no apparent distress, Behavior is appropriate for age, cooperative. dy Pain: Denies pain. GI: Denies nausea. 11:41 Reassessment: Patient appears in no apparent distress at this time. Patient denies pain rs3 at this time. Patient states feeling better. Patient states symptoms have improved. Vital Signs: 09:51 BP 164 / 98; Pulse 104; Resp 20; Temp 97.8(O); Pulse Ox 100% on R/A; Weight 79.38 kg; jrd Height 5 ft. 5 in. (165.10 cm); Pain 0/10; 11:41 BP 135 / 88; Pulse 88; Resp 18; Temp 98(T); Pulse Ox 100% on R/A; Pain 0/10; rs3 09:51 Body Mass Index 29.12 (79.38 kg, 165.10 cm) [facility] Vitals: 09:51 Log In Time: August 03, 2016 at 09:48. [facility] ED Course: 09:50 Patient visited by Neo Valadez PCA. jrd 09:50 Patient moved to Waiting jrd 09:51 Jeb Tan is Private Physician. jrd 09:52 Patient visited by Neo Valadez PCA. jrd 09:52 Patient moved to Pre RCE jrd 09:54 Triage Initiated dwg 09:59 Patient moved to Triage 1 dwg 10:02 [facility] cc10 10:02 Walter Contreras MD is Attending Physician. cc10 10:05 Patient visited by Fausto Antunez PA-C. cc10 10:05 Patient visited by Fausto Antunez PA-C. cc10 10:14 Patient moved to I3 / dy 10:27 Inserted saline lock: 20 gauge in left antecubital area and blood collected. The dy patient tolerated the procedure well. 10:27 Labs drawn. (by ED staff). Sent per order to lab. dy 10:29 Basic Metabolic Profile Sent. dy 10:29 CBC with Diff Sent. dy 10:29 Lipase Sent. dy 10:29 Liver Profile Sent. dy 10:31 The patient / caregiver is instructed regarding the plan of care and ED course. Patient dy has correct armband on for positive identification. Placed in gown. Bed in low position. Call light in reach. Side rails up X 1. 10:32 Patient visited by Thomas Mcfadden RN. dy 10:42 [facility] Payment Agreement was scanned into [employer] and attached to record. mm15 10:57 Patient visited by Ángel Beauchamp PCA. jlf 11:08 Patient visited by Ángel Beauchamp PCA. jlf 11:08 Warm blanket given. jlf 11:15 Patient visited by Thomas Mcfadden RN. dy 11:30 Jbe Tan is Referral Physician. cc10 11:43 Discontinued lock bleeding controlled, pressure dressing applied, No redness/swelling rs3 at site. No procedures done that require assistance. 13:34 T-Sheet-- Draft Copy was scanned into [employer] and attached to record. [facility] 02 09:30 T-Sheet-- Draft Copy was scanned into [employer] and attached to record. gb Administered Medications: 08/03 10:29 Drug: NS 0.9% 1000 ml [sodium chloride 0.9 % injection solution] Route: IV; Rate: dy bolus; Site: left antecubital; 11:42 Follow up: IV Status: Completed infusion rs3 10:29 Drug: Ondansetron 4 mg [ondansetron HCl 2 mg/mL intravenous solution (2 mL)] Route: dy IVP; Site: left antecubital; 11:14 Follow up: Response: Nausea is resolved dy Order Results: Lab Order: Basic Metabolic Profile; SPEC'M 08/03/16 10:28 Test: GLUCOSE, FASTING; Value: 100; Range: 70-105; Units: MG/DL; Status: F Test: BLOOD UREA NITROGEN; Value: 12; Range: 7-18; Units: MG/DL; Status: F Test: CREATININE FOR GFR; Value: 1.11; Range: 0.55-1.02; Abnormal: Above high normal; Units: MG/DL; Status: F Test: GLOMERULAR FILTRATION RATE; Value: 56.6; Range: >58; Abnormal: Below low normal; Status: F Test: SODIUM LEVEL; Value: 138; Range: 136-145; Units: MEQ/L; Status: F Test: POTASSIUM SERUM; Value: 3.1; Range: 3.5-5.1; Abnormal: Below low normal; Units: MEQ/L; Status: F Test: CHLORIDE LEVEL; Value: 102; Range: 98-107; Units: MEQ/L; Status: F Test: CARBON DIOXIDE LEVEL; Value: 27; Range: 21-32; Units: MEQ/L; Status: F Test: ANION GAP; Value: 9; Range: 8-16; Units: MEQ/L; Status: F Test: CALCIUM LEVEL; Value: 8.6; Range: 8.5-10.1; Units: MG/DL; Status: F Test Note: ; Units are mL/min/1.73 m2 Chronic Kidney Disease Staging per NKF: Stage I & II GFR >=60 Normal to Mildly Decreased Stage III GFR 30-59 Moderately Decreased Stage IV GFR 15-29 Severely Decreased Stage V GFR <15 Very Little GFR Left ESRD GFR <15 on 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 Lab Order: CBC with Diff; SPEC'M 08/03/16 10:28 Test: WHITE BLOOD COUNT; Value: 7.9; Range: 4.0-10.0; Units: K/mm3; Status: F Test: RED BLOOD COUNT; Value: 5.67; Range: 4.00-5.40; Abnormal: Above high normal; Units: M/mm3; Status: F Test: HEMOGLOBIN; Value: 15.5; Range: 12.0-16.0; Units: g/dl; Status: F Test: HEMATOCRIT; Value: 46.8; Range: 36.0-47.0; Units: %; Status: F Test: MEAN CORPUSCULAR VOLUME; Value: 82.5; Range: 80.0-96.0; Units: fl; Status: F Test: MEAN CORPUSCULAR HEMOGLOBIN; Value: 27.4; Range: 27.0-33.0; Units: pg; Status: F Test: MEAN CORPUSCULAR HGB CONC; Value: 33.2; Range: 32.0-36.5; Units: g/dl; Status: F Test: RED CELL DISTRIBUTION WIDTH; Value: 16.4; Range: 11.5-14.5; Abnormal: Above high normal; Units: %; Status: F Test: PLATELET COUNT, AUTOMATED; Value: 219; Range: 150-450; Units: k/mm3; Status: F Test: NEUTROPHILS %; Value: 63.6; Range: 36.0-66.0; Units: %; Status: F Test: LYMPH %; Value: 19.4; Range: 24.0-44.0; Abnormal: Below low normal; Units: %; Status: F Test: MONO %; Value: 7.3; Range: 0.0-5.0; Abnormal: Above high normal; Units: %; Status: F Test: EOS %; Value: 3.7; Range: 0.0-3.0; Abnormal: Above high normal; Units: %; Status: F Test: BASO %; Value: 0.6; Range: 0.0-1.0; Units: %; Status: F Test: LARGE UNSTAINED CELL %; Value: 5.4; Range: 0.0-4.0; Abnormal: Above high normal; Units: %; Status: F Test: NEUTROPHILS #; Value: 5.0; Range: 1.8-7.7; Units: K/mm3; Status: F Test: LYMPH #; Value: 1.5; Range: 1.5-4.5; Units: K/mm3; Status: F Test: MONO #; Value: 0.6; Range: 0.0-0.8; Units: K/mm3; Status: F Test: EOS #; Value: 0.3; Range: 0.0-0.50; Units: K/mm3; Status: F Test: BASO #; Value: 0.0; Range: 0.0-0.2; Units: K/mm3; Status: F Test: LARGE UNSTAINED CELL #; Value: 0.4; Range: 0.0-0.4; Units: K/mm3; Status: F Lab Order: Lipase; [facility] 08/03/16 10:28 Test: LIPASE; Value: 130; Range: 73-393; Units: U/L; Status: F Lab Order: Liver Profile; [facility] 08/03/16 10:28 Test: AST/SGOT; Value: 21; Range: 15-37; Units: U/L; Status: F Test: ALT/SGPT; Value: 15; Range: 12-78; Units: U/L; Status: F Test: ALKALINE PHOSPHATASE; Value: 168; Range: 45-117; Abnormal: Above high normal; Units: U/L; Status: F Test: BILIRUBIN,TOTAL; Value: 0.4; Range: 0.2-1.0; Units: MG/DL; Status: F Test: BILIRUBIN,DIRECT; Value: < 0.1; Range: 0.0-0.2; Units: MG/DL; Status: F Test: TOTAL PROTEIN; Value: 7.9; Range: 6.4-8.2; Units: GM/DL; Status: F Test: ALBUMIN; Value: 3.7; Range: 3.2-5.2; Units: GM/DL; Status: F Test: ALBUMIN/GLOBULIN RATIO; Value: 0.88; Range: 1.00-1.93; Abnormal: Below low normal; Status: F Outcome: 11:30 Discharge ordered by Provider. cc10 11:42 Discharge Assessment: patient administered narcotics - no. The following High Risk rs3 Discharge criteria are identified: None. Discharged to home ambulatory. Condition: stable. Discharge instructions given to patient, Instructed on discharge instructions, follow up and referral plans. medication usage, Demonstrated understanding of instructions, medications, Pt was receptive of discharge instructions/ teaching. No special radiology studies were completed. Property :Personal belongings accompany Pt. 11:43 Patient left the ED. rs3 Signatures: Alexis Toth, RN RN Danae Butt Reg Reg gb Youngs, David, RN Jeanie Putnam RN RN rs3 Leo Valladares mm15 Ángel Beauchamp, TRAVEL PT TRAVEL PT Fausto Giraldo, PAMandyC PA-C cc10 Neo Valadez, TRAVEL PT TRAVEL PT Bettina Olivares Chart Complete MTDD
== END 2016-08-03 11:43 | disposition home or self-care (01) ==
LOC: M ED 09:48
DX: E87.6 Hypokalemia (principal); R11.2 Nausea with vomiting, unspecified; R19.7 Diarrhea, unspecified; J44.9 Chronic obstructive pulmonary disease, unspecified; I48.91 Unspecified atrial fibrillation; K21.9 Gastro-esophageal reflux disease without esophagitis; J30.2 Other seasonal allergic rhinitis; Z79.899 Other long term (current) drug therapy; Z79.51 Long term (current) use of inhaled steroids; Z79.01 Long term (current) use of anticoagulants; Z99.81 Dependence on supplemental oxygen; Z88.0 Allergy status to penicillin; Z88.2 Allergy status to sulfonamides; Z88.6 Allergy status to analgesic agent; Z91.040 Latex allergy status; F17.210 Nicotine dependence, cigarettes, uncomplicated
CPT/HCPCS: 36415; 80048; 80076; 83690; 85025; 96361; 96374; 99284; J2405

== ENCOUNTER → 2016-11-10 | Outpatient (CLI) | payer OTHER ==
[2016-11-10 17:04] LABS: CREATININE FOR GFR 1.06 MG/DL (0.55-1.02); GLOMERULAR FILTRATION RATE 59.7 (>58); POTASSIUM SERUM 4.6 MEQ/L (3.5-5.1)
[2016-11-10 18:19] LABS: MEAN CORPUSCULAR HEMOGLOBIN 28.2 pg (27.0-33.0); MEAN CORPUSCULAR HGB CONC 32.5 g/dl (32.0-36.5); MEAN CORPUSCULAR VOLUME 86.8 fl (80.0-96.0); RED CELL DISTRIBUTION WIDTH 16.6 % (11.5-14.5)
--- NOTE | 2016-11-11 01:46 | REP ---
Clinical: Dyspnea with history of COPD. Technique: PA and lateral. Comparison: 05/06/2015. Findings: Mediastinum and cardiac silhouette are stable. Prior surgery including valve replacement noted. Lung claros demonstrate chronic-appearing interstitial changes without consolidation, effusion, or pneumothorax. Skeletal structures intact. Impression: 1. Chronic stable changes. No acute cardiopulmonary process. 2. If the patient remains symptomatic consider chest CT for further investigation. Signed by Trent Segundo MD 11/11/2016 01:37 A
== END ==
LOC: M SMT 11:33
PROVIDERS: ATTEND Internal Medicine Cardiovascular Disease
DX: J44.9 Chronic obstructive pulmonary disease, unspecified (principal); I48.91 Unspecified atrial fibrillation; Z95.2 Presence of prosthetic heart valve; R06.00 Dyspnea, unspecified

== ENCOUNTER 2017-01-23 11:14 | Emergency (ER) | payer OTHER ==
[~2017-01-23] VITALS: Ht 165.1 cm; Wt 63.6 kg
[~2017-01-23 11:14] MED LIST changes: -PROA1AER IN; +PROAAER10 IN
--- NOTE | 2017-01-23 12:07 | REP ---
Left foot four views : There is no fracture or dislocation. Mineralization and joint spaces are normal. There are no calcifications or foreign bodies. Impression: Negative left foot . Signed by Alexis Bower MD 01/23/2017 11:59 A
[2017-01-23] MEDS ORDERED: NORCO, ANEXSIA 5/325MG TABLET (HYDROcodone/ACETAMINOPHEN) PO ONE (12:45)
[2017-01-23] MEDS ORDERED: NORCOTAB PO (12:55)
[2017-01-23 13:04] VITALS: BP 115/78
== END 2017-01-23 13:06 | disposition home or self-care (01) ==
LOC: M ED 11:14
DX: S90.112A Contusion of left great toe without damage to nail, initial encounter (principal); W23.1XXA Caught, crushed, jammed, or pinched between stationary objects, initial encounter; Y92.838 Other recreation area as the place of occurrence of the external cause; Y93.89 Activity, other specified; Y99.8 Other external cause status; I48.91 Unspecified atrial fibrillation; F41.9 Anxiety disorder, unspecified; F32.9 Major depressive disorder, single episode, unspecified; F17.200 Nicotine dependence, unspecified, uncomplicated; Z95.2 Presence of prosthetic heart valve; Z85.41 Personal history of malignant neoplasm of cervix uteri; Z79.01 Long term (current) use of anticoagulants; Z79.51 Long term (current) use of inhaled steroids; Z79.899 Other long term (current) drug therapy; Z88.0 Allergy status to penicillin; Z88.2 Allergy status to sulfonamides; Z88.6 Allergy status to analgesic agent; Z91.040 Latex allergy status

== ENCOUNTER → 2017-01-28 | Outpatient (CLI) | payer OTHER ==
[~2017-01-28] MED LIST changes: +NORCOTAB PO
--- NOTE | 2017-01-28 13:30 | REP ---
LEFT FOOT SERIES, FOUR VIEWS: There is no evidence of an acute fracture, dislocation or intrinsic bone disease. IMPRESSION: No fracture or dislocation. Signed by Alexis Jain MD 01/28/2017 04:43 P
== END ==
LOC: M LRY 11:33
PROVIDERS: ATTEND Family Medicine
DX: S90.32XD Contusion of left foot, subsequent encounter (principal); X58.XXXD Exposure to other specified factors, subsequent encounter; Y92.9 Unspecified place or not applicable; Y93.9 Activity, unspecified; Y99.9 Unspecified external cause status

== ENCOUNTER → 2017-11-27 | Outpatient (CLI) | payer OTHER | LOC: M RAD 11:07 | DX: R91.1 Solitary pulmonary nodule (principal) | CPT/HCPCS: 71250 ==

== ENCOUNTER 2017-12-17 19:52 | Inpatient (IN) | payer MEDICAID, OTHER ==
[2017-12-17 22:04] LABS: BASO % 0.3 % (0.0-1.0); EOS # 0.3 10^3/uL (0.0-0.50); EOS % 3.1 % (0.0-3.0); HEMATOCRIT 42.9 % (36.0-47.0); HEMOGLOBIN 13.6 g/dl (12.0-15.5); IMMATURE GRANULOCYTE % 0.3 % (0-3.0); LYMPH # 1.9 10^3/uL (1.5-4.5); LYMPH % 20.2 % (24.0-44.0); MEAN CORPUSCULAR HEMOGLOBIN 27.5 pg (27.0-33.0); MEAN CORPUSCULAR HGB CONC 31.7 g/dl (32.0-36.5); MEAN CORPUSCULAR VOLUME 86.7 fl (80.0-96.0); MONO # 0.6 10^3/uL (0.0-0.8); MONO % 6.7 % (0.0-5.0); NEUTROPHILS # 6.4 10^3/uL (1.8-7.7); NEUTROPHILS % 69.4 % (36.0-66.0); PLATELET COUNT, AUTOMATED 178 10^3/uL (150-450); RED BLOOD COUNT 4.95 10^6/uL (4.00-5.40); WHITE BLOOD COUNT 9.2 10^3/uL (4.0-10.0)
[2017-12-17] MEDS: NS 1,000 ML IV (22:08)
[2017-12-17] MEDS: methylPREDNISolone INJ 125 MG/2 ML VIAL (J2930) IV (22:08)
[2017-12-17] MEDS: ALBUTEROL SULFATE 2.5 MG/0.5 ML INH NEB SOLN NEB ×2 (22:13→23:17)
[2017-12-17 22:31] LABS: LACTIC ACID SEPSIS PROTOCOL 1.5 MMOL/L (0.4-2.0)
[2017-12-17 22:32] LABS: ALBUMIN 3.7 GM/DL (3.2-5.2); ALBUMIN/GLOBULIN RATIO 0.86 (1.00-1.93); ALKALINE PHOSPHATASE 143 U/L (45-117); ALT/SGPT 18 U/L (12-78); ANION GAP 8 MEQ/L (8-16); AST/SGOT 16 U/L (7-37); BILIRUBIN,DIRECT 0.1 MG/DL (0.0-0.2); BILIRUBIN,TOTAL 0.5 MG/DL (0.2-1.0); BLOOD UREA NITROGEN 7 MG/DL (7-18); CALCIUM LEVEL 8.3 MG/DL (8.5-10.1); CARBON DIOXIDE LEVEL 28 MEQ/L (21-32); CHLORIDE LEVEL 106 MEQ/L (98-107); CREATININE FOR GFR 0.86 MG/DL (0.55-1.30); GLOMERULAR FILTRATION RATE > 60.0 (>58); GLUCOSE, FASTING 92 MG/DL (70-100); NT-PRO BNP 837 PG/ML (<125); POTASSIUM SERUM 2.9 MEQ/L (3.5-5.1); SODIUM LEVEL 142 MEQ/L (136-145)
[2017-12-17] MEDS: POTASSIUM CHLORIDE 10 MEQ SR TABLET PO (22:45)
[2017-12-17 23:09] LABS: CK-MB VALUE MASS 1.2 NG/ML (<3.6); CPK CREATINE PHOSPHOKINASE 74 U/L (26-192); MB/CK RELATIVE INDEX 1.62 (< OR =4)
[2017-12-18] MEDS ORDERED: ACETAMINOPHEN 650 MG SUPP PR (02:45)
[2017-12-18] MEDS: POTASSIUM CHLORIDE 10 MEQ SR TABLET PO (02:45)
[2017-12-18 03:59] LABS: INR 2.35; PROTHROMBIN TIME 26.2 SECONDS (12.1-14.4)
[2017-12-18 06:57] LABS: ANION GAP 6 MEQ/L (8-16); BLOOD UREA NITROGEN 7 MG/DL (7-18); CALCIUM LEVEL 8.4 MG/DL (8.5-10.1); CARBON DIOXIDE LEVEL 26 MEQ/L (21-32); CHLORIDE LEVEL 112 MEQ/L (98-107); CREATININE FOR GFR 0.94 MG/DL (0.55-1.30); GLOMERULAR FILTRATION RATE > 60.0 (>58); GLUCOSE, FASTING 167 MG/DL (70-100); POTASSIUM SERUM 4.3 MEQ/L (3.5-5.1); SODIUM LEVEL 144 MEQ/L (136-145)
[2017-12-18] MEDS: IPRATROPIUM 0.5MG/ALBUTEROL 2.5MG INH SOL UD 3ML (DUONEB)(J7620) NEB ×3 (08:00→20:00)
[2017-12-18] MEDS: ADVAIR HFA 230/21MCG INHALER INH ×2 (08:20→20:21)
[2017-12-18] MEDS: predniSONE 20 MG TAB PO (08:35)
[2017-12-18] MEDS: AMIODARONE 200 MG TAB (PACERONE) PO ×2 (08:35→20:38)
[2017-12-18] MEDS: DIGOXIN 0.125 MG TAB PO (08:36)
[2017-12-18] MEDS: MONTELUKAST 10 MG TAB PO (08:36)
[2017-12-18] MEDS: METOPROLOL SUCC (TopROL XL) 100MG *XL* TAB PO (08:36)
[2017-12-18] MEDS: WARFARIN SOD 5 MG TAB PO (18:04)
[2017-12-19] MEDS: IPRATROPIUM 0.5MG/ALBUTEROL 2.5MG INH SOL UD 3ML (DUONEB)(J7620) NEB ×4 (00:36→19:53)
[2017-12-19 06:32] LABS: HEMATOCRIT 39.3 % (36.0-47.0); HEMOGLOBIN 12.5 g/dl (12.0-15.5); MEAN CORPUSCULAR HEMOGLOBIN 27.6 pg (27.0-33.0); MEAN CORPUSCULAR HGB CONC 31.8 g/dl (32.0-36.5); MEAN CORPUSCULAR VOLUME 86.8 fl (80.0-96.0); PLATELET COUNT, AUTOMATED 181 10^3/uL (150-450); RED BLOOD COUNT 4.53 10^6/uL (4.00-5.40); RED CELL DISTRIBUTION WIDTH 17.1 % (11.5-14.5); WHITE BLOOD COUNT 11.4 10^3/uL (4.0-10.0)
[2017-12-19 06:45] LABS: ANION GAP 5 MEQ/L (8-16); BLOOD UREA NITROGEN 12 MG/DL (7-18); CALCIUM LEVEL 8.2 MG/DL (8.5-10.1); CARBON DIOXIDE LEVEL 26 MEQ/L (21-32); CHLORIDE LEVEL 112 MEQ/L (98-107); CREATININE FOR GFR 0.85 MG/DL (0.55-1.30); GLOMERULAR FILTRATION RATE > 60.0 (>58); GLUCOSE, FASTING 101 MG/DL (70-100); INR 2.78; SODIUM LEVEL 143 MEQ/L (136-145)
[2017-12-19] MEDS: ADVAIR HFA 230/21MCG INHALER INH ×2 (07:50→19:53)
[2017-12-19] MEDS: predniSONE 20 MG TAB PO (09:21)
[2017-12-19] MEDS: METOPROLOL SUCC (TopROL XL) 100MG *XL* TAB PO (09:22)
[2017-12-19] MEDS: AMIODARONE 200 MG TAB (PACERONE) PO ×2 (09:23→20:36)
[2017-12-19] MEDS: MONTELUKAST 10 MG TAB PO (09:23)
[2017-12-19] MEDS: DIGOXIN 0.125 MG TAB PO (09:23)
[2017-12-19] MEDS: WARFARIN SOD 5 MG TAB PO (16:25)
[2017-12-20] MEDS: IPRATROPIUM 0.5MG/ALBUTEROL 2.5MG INH SOL UD 3ML (DUONEB)(J7620) NEB ×4 (02:00→20:00)
[2017-12-20 06:43] LABS: HEMOGLOBIN 12.7 g/dl (12.0-15.5); MEAN CORPUSCULAR HEMOGLOBIN 27.6 pg (27.0-33.0); MEAN CORPUSCULAR HGB CONC 31.8 g/dl (32.0-36.5); PLATELET COUNT, AUTOMATED 183 10^3/uL (150-450); RED CELL DISTRIBUTION WIDTH 16.8 % (11.5-14.5); WHITE BLOOD COUNT 10.3 10^3/uL (4.0-10.0)
[2017-12-20 06:48] LABS: INR 3.36; PROTHROMBIN TIME 34.8 SECONDS (12.1-14.4)
[2017-12-20 06:53] LABS: ANION GAP 6 MEQ/L (8-16); BLOOD UREA NITROGEN 14 MG/DL (7-18); CARBON DIOXIDE LEVEL 28 MEQ/L (21-32); CHLORIDE LEVEL 110 MEQ/L (98-107); CREATININE FOR GFR 0.88 MG/DL (0.55-1.30); GLOMERULAR FILTRATION RATE > 60.0 (>58); GLUCOSE, FASTING 86 MG/DL (70-100); SODIUM LEVEL 144 MEQ/L (136-145)
[2017-12-20] MEDS: ADVAIR HFA 230/21MCG INHALER INH ×2 (07:34→21:03)
[2017-12-20] MEDS: AMIODARONE 200 MG TAB (PACERONE) PO ×2 (09:38→20:54)
[2017-12-20] MEDS: predniSONE 20 MG TAB PO (09:39)
[2017-12-20] MEDS: DIGOXIN 0.125 MG TAB PO (09:39)
[2017-12-20] MEDS: METOPROLOL SUCC (TopROL XL) 100MG *XL* TAB PO (09:39)
[2017-12-20] MEDS: MONTELUKAST 10 MG TAB PO (09:39)
[2017-12-20] MEDS: WARFARIN SOD 5 MG TAB PO (16:43)
[2017-12-21] MEDS: IPRATROPIUM 0.5MG/ALBUTEROL 2.5MG INH SOL UD 3ML (DUONEB)(J7620) NEB ×2 (03:01→08:00)
[2017-12-21 07:50] LABS: HEMATOCRIT 43.4 % (36.0-47.0); HEMOGLOBIN 13.9 g/dl (12.0-15.5); MEAN CORPUSCULAR HEMOGLOBIN 27.5 pg (27.0-33.0); MEAN CORPUSCULAR VOLUME 85.8 fl (80.0-96.0); PLATELET COUNT, AUTOMATED 198 10^3/uL (150-450); RED BLOOD COUNT 5.06 10^6/uL (4.00-5.40); RED CELL DISTRIBUTION WIDTH 16.5 % (11.5-14.5); WHITE BLOOD COUNT 12.2 10^3/uL (4.0-10.0)
[2017-12-21 08:00] LABS: INR 3.94; PROTHROMBIN TIME 39.5 SECONDS (12.1-14.4)
[2017-12-21] MEDS: ADVAIR HFA 230/21MCG INHALER INH (08:09)
[2017-12-21 08:12] LABS: ANION GAP 5 MEQ/L (8-16); BLOOD UREA NITROGEN 14 MG/DL (7-18); CALCIUM LEVEL 8.4 MG/DL (8.5-10.1); CARBON DIOXIDE LEVEL 29 MEQ/L (21-32); CHLORIDE LEVEL 109 MEQ/L (98-107); CREATININE FOR GFR 1.08 MG/DL (0.55-1.30); GLOMERULAR FILTRATION RATE 58.1 (>58); GLUCOSE, FASTING 84 MG/DL (70-100); POTASSIUM SERUM 4.2 MEQ/L (3.5-5.1); SODIUM LEVEL 143 MEQ/L (136-145)
[2017-12-21] MEDS: DIGOXIN 0.125 MG TAB PO (09:00)
[2017-12-21] MEDS: METOPROLOL SUCC (TopROL XL) 100MG *XL* TAB PO (09:35)
[2017-12-21] MEDS: predniSONE 20 MG TAB PO (09:35)
[2017-12-21] MEDS: MONTELUKAST 10 MG TAB PO (09:35)
[2017-12-21] MEDS: AMIODARONE 200 MG TAB (PACERONE) PO (09:35)
== END 2017-12-21 12:35 | disposition home or self-care (01) | DRG 140 ==
LOC: M ED INP 12-18 02:41 → M MSPAV 12-20 04:16 → M ED 19:52 → M MSPAV 12-18 13:34 → M PED 12-20 16:49
DX: J44.1 Chronic obstructive pulmonary disease with (acute) exacerbation (principal); J96.11 Chronic respiratory failure with hypoxia; Z99.81 Dependence on supplemental oxygen; I48.2 Chronic atrial fibrillation; J20.8 Acute bronchitis due to other specified organisms; R19.7 Diarrhea, unspecified; E87.6 Hypokalemia; Z95.2 Presence of prosthetic heart valve; Z79.01 Long term (current) use of anticoagulants; Z79.899 Other long term (current) drug therapy; Z88.0 Allergy status to penicillin; Z88.2 Allergy status to sulfonamides; Z91.040 Latex allergy status; Z87.891 Personal history of nicotine dependence

== ENCOUNTER → 2018-01-19 | Outpatient (REF) | payer MEDICAID, OTHER ==
[2018-01-21 14:16] LABS: HPV HYBRID CAPTURE II Negative (Negative)
== END ==
LOC: M LAB REF 19:50
DX: Z12.4 Encounter for screening for malignant neoplasm of cervix (principal); R23.4 Changes in skin texture
CPT/HCPCS: 88142

== ENCOUNTER 2018-02-25 13:58 | Day surgery (SDC) | payer OTHER ==
[2018-02-25] MEDS: NS 1,000 ML IV (14:15)
[2018-02-25] MEDS ORDERED: LIDOCAINE 2% INJ 100 MG/5 ML SDV (FOR ANES.) As Ordered (15:19)
[2018-02-25] MEDS ORDERED: PROPOFOL 200 MG/20 ML VIAL As Ordered (15:19)
[2018-02-25] MEDS ORDERED: fentaNYL 100 MCG/2 ML INJECTION (J3010) As Ordered (15:24)
== END 2018-02-25 16:13 | disposition home or self-care (01) ==
LOC: M OPP 16:13
DX: R12 Heartburn (principal); I48.91 Unspecified atrial fibrillation; I10 Essential (primary) hypertension; R07.89 Other chest pain; Z95.2 Presence of prosthetic heart valve; Z95.0 Presence of cardiac pacemaker; K21.9 Gastro-esophageal reflux disease without esophagitis; D64.9 Anemia, unspecified; R06.02 Shortness of breath; M19.90 Unspecified osteoarthritis, unspecified site; F41.9 Anxiety disorder, unspecified; F32.9 Major depressive disorder, single episode, unspecified; G43.909 Migraine, unspecified, not intractable, without status migrainosus; J45.909 Unspecified asthma, uncomplicated; J44.9 Chronic obstructive pulmonary disease, unspecified; R06.83 Snoring; Z85.41 Personal history of malignant neoplasm of cervix uteri; F17.210 Nicotine dependence, cigarettes, uncomplicated; Z88.8 Allergy status to other drugs, medicaments and biological substances; Z88.0 Allergy status to penicillin; Z88.2 Allergy status to sulfonamides; Z91.040 Latex allergy status; Z91.030 Bee allergy status; Z79.01 Long term (current) use of anticoagulants; Z79.899 Other long term (current) drug therapy; Z80.0 Family history of malignant neoplasm of digestive organs; Z80.49 Family history of malignant neoplasm of other genital organs; Z80.41 Family history of malignant neoplasm of ovary
CPT/HCPCS: 43235

== ENCOUNTER → 2018-06-21 | Outpatient (REF) | payer OTHER, MEDICAID ==
[~2018-06-21] MED LIST changes: +CETI10CH PO; +FURO40TA2 PO; +GABA-843 PO; -LASI20TA PO; +LASI20TA3 PO; +METO25TA4 PO; +OMEP20CA3 PO; +OXYB5TAB10 PO; +PROAAER10 INH; +RANI150T PO; +SERT-138 PO; +SPIR-10 PO; -SPIR25TA2 PO; +TIOT18INH INH; +TIZA4CAP6 PO; -TOPR100T PO; +TOPR100T13 PO; +VARE05TA PO; +VENTAER INH; +ZOFR4TAB16 PO
[2018-06-21 18:34] LABS: APPEARANCE, URINE CLEAR (CLEAR); BACTERIA, URINE AUTO NEGATIVE (NEGATIVE); BILIRUBIN, URINE AUTO NEGATIVE (NEGATIVE); BLOOD, URINE BLOOD NEGATIVE (NEGATIVE); COLOR, URINE COLORLESS (YELLOW); GLUCOSE, URINE (UA) AUTO NEGATIVE (NEGATIVE); KETONE, URINE AUTO NEGATIVE (NEGATIVE); LEUKOCYTE ESTERASE, URINE AUTO NEGATIVE (NEGATIVE); NITRITE, URINE AUTO NEGATIVE (NEGATIVE); PROTEIN, URINE AUTO NEGATIVE (NEGATIVE); RBC, URINE AUTO 1 /HPF (0-3); SPECIFIC GRAVITY URINE AUTO 1.005 (1.002-1.035); SQUAMOUS EPITHELIAL CELL UR AU 0 /HPF (0-6); UROBILINOGEN, URINE AUTO 0.2 mg/dL (0.0-2.0); WBC, URINE AUTO 0 /HPF (0-3)
== END ==
LOC: M LAB REF 17:23
PROVIDERS: ATTEND Specialist
DX: N39.46 Mixed incontinence (principal)

== ENCOUNTER 2018-12-10 18:58 | Emergency (ER) | payer MEDICAID, OTHER ==
[~2018-12-10] VITALS: Ht 165.1 cm; Wt 82.7 kg
[~2018-12-10 18:58] MED LIST changes: +HYDR-3715 PO; -NORCOTAB PO; -OMEP20CA3 PO; +OMEP20CA4 PO; +TOPR100T PO; -TOPR100T13 PO
[2018-12-10 20:31] LABS: BASO % 0.4 % (0.0-1.0); EOS # 0.2 10^3/uL (0.0-0.50); EOS % 2.1 % (0.0-3.0); HEMATOCRIT 44.5 % (36.0-47.0); HEMOGLOBIN 14.5 g/dl (12.0-15.5); LYMPH # 1.9 10^3/uL (1.5-4.5); LYMPH % 26.2 % (24.0-44.0); MEAN CORPUSCULAR HEMOGLOBIN 28.3 pg (27.0-33.0); MEAN CORPUSCULAR HGB CONC 32.6 g/dl (32.0-36.5); MEAN CORPUSCULAR VOLUME 86.7 fl (80.0-96.0); MONO # 0.5 10^3/uL (0.0-0.8); MONO % 6.9 % (0.0-5.0); NEUTROPHILS # 4.7 10^3/uL (1.8-7.7); NEUTROPHILS % 64.3 % (36.0-66.0); PLATELET COUNT, AUTOMATED 205 10^3/uL (150-450); RED BLOOD COUNT 5.13 10^6/uL (4.00-5.40); WHITE BLOOD COUNT 7.3 10^3/uL (4.0-10.0)
[2018-12-10 21:03] LABS: ALBUMIN 3.6 GM/DL (3.2-5.2); ALT/SGPT 18 U/L (12-78); BILIRUBIN,DIRECT 0.1 MG/DL (0.0-0.2); BILIRUBIN,TOTAL 0.4 MG/DL (0.2-1.0); LIPASE 122 U/L (73-393); TOTAL PROTEIN 7.1 GM/DL (6.4-8.2)
[2018-12-10] MEDS ORDERED: NS 1,000 ML IV ONE (21:45)
[2018-12-10 22:07] LABS: AMYLASE 32 U/L (25-115)
[2018-12-10 22:16] LABS: INR 1.7; PROTHROMBIN TIME 19.7 SECONDS (11.8-14.0)
[2018-12-10] MEDS ORDERED: ONDANSETRON 4MG/2ML VIAL (J2405) IV ONE (23:15)
[2018-12-10 23:50] LABS: BLOOD UREA NITROGEN 8 MG/DL (7-18); CALCIUM LEVEL 8.4 MG/DL (8.5-10.1); CARBON DIOXIDE LEVEL 26 MEQ/L (21-32); CHLORIDE LEVEL 108 MEQ/L (98-107); CREATININE FOR GFR 1.03 MG/DL (0.55-1.30); GLOMERULAR FILTRATION RATE > 60.0 (>58); GLUCOSE, FASTING 91 MG/DL (70-100); POTASSIUM SERUM 3.7 MEQ/L (3.5-5.1); SODIUM LEVEL 143 MEQ/L (136-145)
[2018-12-11] MEDS ORDERED: ISOVUE-370 76% 100ML VIAL (Q9967) As Ordered ONE (00:58)
--- NOTE | 2018-12-11 01:48 | REPVR ---
EXAM: CT Abdomen and Pelvis With Contrast EXAM DATE/TIME: 12/10/2018 11:09 PM CLINICAL HISTORY: 48 years old, female; Abdominal pain; Generalized; Additional Info: Abd pain/Distension TECHNIQUE: Imaging protocol: Axial computed tomography images of the abdomen and pelvis with intravenous contrast. Coronal and sagittal reformatted images were created and reviewed. Radiation optimization: All CT scans at this facility use at least one of these dose optimization techniques: automated exposure control; mA and/or kV adjustment per patient size (includes targeted exams where dose is matched to clinical indication); or iterative reconstruction. Contrast material: ISO; Contrast volume: 100 ml; Contrast route: AC; COMPARISON: US PELVIC NON OB COMPLETE 01/09/2014 1:14 PM FINDINGS: Heart: Status post atrial valve closure. Status post cardiac valve replacement. Heart is not completely imaged on the study. Liver: Normal. No mass. Gallbladder and bile ducts: Normal. No calcified stones. No ductal dilation. Pancreas: Normal. No ductal dilation. Spleen: Normal. No splenomegaly. Adrenals: Normal. No mass. Kidneys and ureters: Normal. No hydronephrosis. Stomach and bowel: Fluid in the colon. Negative for colonic diverticulitis. No abnormal bowel dilatation. No abnormal bowel wall thickening. Appendix: Appendix is normal. Intraperitoneal space: Normal. No free air. No significant fluid collection. Vasculature: Mild atherosclerotic disease. No aortic aneurysm. Lymph nodes: Normal. No enlarged lymph nodes. Bladder: Unremarkable as visualized. Reproductive: Uterus is normal. Cyst in the left ovary measuring 2.1 cm. Bones/joints: No acute fracture. No dislocation. Soft tissues: Unremarkable. IMPRESSION: 1. Diarrhea of unknown etiology. 2. No evidence of bowel obstruction. 3. Left ovarian cyst. No followup is necessary. 4. Mild atherosclerotic disease. Electronically signed by: Triston Dubose On 12/11/2018 01:47:52 AM
[2018-12-11 02:18] VITALS: BP 136/76
[2018-12-11] MEDS ORDERED: METAL LOCK LOOP XX ONE (02:31)
[2018-12-11] MEDS ORDERED: REGL10TA6 PO (02:35)
--- NOTE | 2018-12-11 06:58 | REP ---
Clinical: Wheezing . Comparison: 12/17/2017 . Technique: PA and lateral. Findings: The mediastinum and cardiac silhouette are stable. Evidence of prior aortic valve repair again noted. The lung claros are clear and without acute consolidation, effusion, or pneumothorax. The skeletal structures are intact and normal. Impression: 1. No acute cardiopulmonary process. Electronically Signed by Trent Segundo MD 12/11/2018 06:49 A
--- NOTE | 2018-12-11 11:19 | ECGEPIP ---
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
== END 2018-12-11 02:38 | disposition home or self-care (01) ==
LOC: M ED 18:58
DX: R10.84 Generalized abdominal pain (principal); R11.2 Nausea with vomiting, unspecified; R19.7 Diarrhea, unspecified; R07.89 Other chest pain; G43.909 Migraine, unspecified, not intractable, without status migrainosus; J44.9 Chronic obstructive pulmonary disease, unspecified; K21.9 Gastro-esophageal reflux disease without esophagitis; Z95.2 Presence of prosthetic heart valve; F17.200 Nicotine dependence, unspecified, uncomplicated; Z88.0 Allergy status to penicillin; Z88.2 Allergy status to sulfonamides; Z88.6 Allergy status to analgesic agent; Z91.040 Latex allergy status; Z79.899 Other long term (current) drug therapy; Z79.51 Long term (current) use of inhaled steroids; Z79.01 Long term (current) use of anticoagulants
CPT/HCPCS: 36415; 71046; 74177; 80047; 80048; 80076; 82150; 83690; 85025; 85610; 93005; 96374; 99284; J2405; Q9967

== ENCOUNTER → 2018-12-21 | Outpatient (REF) | payer OTHER, MEDICAID ==
[~2018-12-21] MED LIST changes: +ENOX80IN3 SQ; +OMEP1CAP73 PO; -OMEP20CA4 PO; +OXYC1TAB23 PO; +PRED20TA PO; +REGL10TA6 PO; +TIZA4TAB4 PO
[2018-12-21 20:28] LABS: BASO # 0.1 10^3/uL (0.0-0.2); BASO % 0.6 % (0.0-1.0); EOS # 0.2 10^3/uL (0.0-0.50); EOS % 2.2 % (0.0-3.0); HEMATOCRIT 43.5 % (36.0-47.0); HEMOGLOBIN 13.7 g/dl (12.0-15.5); LYMPH # 2.4 10^3/uL (1.5-4.5); LYMPH % 28.4 % (24.0-44.0); MEAN CORPUSCULAR HEMOGLOBIN 27.9 pg (27.0-33.0); MEAN CORPUSCULAR HGB CONC 31.5 g/dl (32.0-36.5); MEAN CORPUSCULAR VOLUME 88.6 fl (80.0-96.0); MONO # 0.5 10^3/uL (0.0-0.8); MONO % 6.3 % (0.0-5.0); NEUTROPHILS # 5.2 10^3/uL (1.8-7.7); NEUTROPHILS % 62.3 % (36.0-66.0); PLATELET COUNT, AUTOMATED 186 10^3/uL (150-450); RED BLOOD COUNT 4.91 10^6/uL (4.00-5.40); WHITE BLOOD COUNT 8.4 10^3/uL (4.0-10.0)
[2018-12-21 20:37] LABS: ALBUMIN 3.8 GM/DL (3.2-5.2); ALT/SGPT 19 U/L (12-78); BILIRUBIN,TOTAL 0.2 MG/DL (0.2-1.0); BLOOD UREA NITROGEN 19 MG/DL (7-18); CALCIUM LEVEL 8.8 MG/DL (8.5-10.1); CARBON DIOXIDE LEVEL 28 MEQ/L (21-32); CHLORIDE LEVEL 107 MEQ/L (98-107); CHOLESTEROL LEVEL 189 MG/DL (<200); CHOLESTEROL RISK RATIO 4.108 (<5); CREATININE FOR GFR 1.03 MG/DL (0.55-1.30); GLOMERULAR FILTRATION RATE > 60.0 (>58); GLUCOSE, FASTING 65 MG/DL (70-100); HDL CHOLESTEROL 46 MG/DL (>40); LDL CHOLESTEROL 109 MG/DL (<100); NON-HDL-C 143 MG/DL; POTASSIUM SERUM 4.6 MEQ/L (3.5-5.1); SODIUM LEVEL 139 MEQ/L (136-145); TOTAL PROTEIN 7.4 GM/DL (6.4-8.2); TRIGLYCERIDES LEVEL 169 MG/DL (<150)
[2018-12-21 21:01] LABS: HEMOGLOBIN A1c 5.8 %
== END ==
LOC: M SFHCLERA 16:40
PROVIDERS: ATTEND Family Medicine
DX: I10 Essential (primary) hypertension (principal)

== ENCOUNTER 2019-02-20 18:56 | Emergency (ER) | payer MEDICAID, OTHER ==
[~2019-02-20] VITALS: Ht 165.1 cm; Wt 83.6 kg
[~2019-02-20 18:56] MED LIST changes: -ENOX80IN3 SQ; -OMEP1CAP73 PO; +OMEP20CA4 PO; -OXYC1TAB23 PO; -PRED20TA PO; -TIZA4TAB4 PO
[2019-02-20] MEDS ORDERED: NS 1,000 ML IV ONE (19:45)
[2019-02-20] MEDS ORDERED: FAMOTIDINE INJ 20MG/2ML VIAL (S0028) IVP ONE (19:45)
[2019-02-20] MEDS ORDERED: methylPREDNISolone INJ 125 MG/2 ML VIAL (J2930) IV ONE (19:45)
[2019-02-20] MEDS ORDERED: diphenhydrAMINE INJ 50MG/ML VIAL (J1200) IV ONE (19:45)
[2019-02-20] MEDS: ALBUTEROL SULFATE 2.5 MG/0.5 ML INH NEB SOLN NEB SCH ×3 (19:54→20:49)
[2019-02-20 19:57] LABS: BASO % 0.5 % (0.0-1.0); EOS # 0.2 10^3/uL (0.0-0.5); EOS % 2.9 % (0.0-3.0); HEMATOCRIT 42.5 % (36.0-47.0); HEMOGLOBIN 13.9 g/dl (12.0-15.5); LYMPH # 2.3 10^3/uL (1.5-5.0); LYMPH % 27.3 % (24.0-44.0); MEAN CORPUSCULAR HEMOGLOBIN 28.1 pg (27.0-33.0); MEAN CORPUSCULAR HGB CONC 32.7 g/dl (32.0-36.5); MONO # 0.6 10^3/uL (0.0-0.8); MONO % 6.9 % (0.0-5.0); NEUTROPHILS # 5.2 10^3/uL (1.5-8.5); NEUTROPHILS % 62.2 % (36.0-66.0); PLATELET COUNT, AUTOMATED 180 10^3/uL (150-450); RED BLOOD COUNT 4.94 10^6/uL (4.00-5.40); WHITE BLOOD COUNT 8.3 10^3/uL (4.0-10.0)
[2019-02-20 20:15] LABS: ERYTHROCYTE SEDIMENTATION RATE 4 mm/hr (0-20)
[2019-02-20 20:21] LABS: C REACTIVE PROTEIN QUANTITATIV 1.09 MG/DL (0.00-0.30); CALCIUM LEVEL 8.8 MG/DL (8.5-10.1); CREATININE FOR GFR 1.18 MG/DL (0.55-1.30); GLOMERULAR FILTRATION RATE 52.3 (>58); POTASSIUM SERUM 4.1 MEQ/L (3.5-5.1)
[2019-02-20 22:52] VITALS: BP 159/96
[2019-02-20] MEDS ORDERED: PRED20TA PO (22:56)
== END 2019-02-20 23:05 | disposition home or self-care (01) ==
LOC: M ED 18:56
DX: T63.441A Toxic effect of venom of bees, accidental (unintentional), initial encounter (principal); R06.02 Shortness of breath; L50.9 Urticaria, unspecified; X58.XXXA Exposure to other specified factors, initial encounter; Y92.89 Other specified places as the place of occurrence of the external cause; G43.909 Migraine, unspecified, not intractable, without status migrainosus; K21.9 Gastro-esophageal reflux disease without esophagitis; J44.9 Chronic obstructive pulmonary disease, unspecified; F43.10 Post-traumatic stress disorder, unspecified; M54.9 Dorsalgia, unspecified; F41.9 Anxiety disorder, unspecified; Z95.2 Presence of prosthetic heart valve; F17.200 Nicotine dependence, unspecified, uncomplicated; Z91.030 Bee allergy status; Z88.0 Allergy status to penicillin; Z88.2 Allergy status to sulfonamides; Z88.6 Allergy status to analgesic agent; Z91.040 Latex allergy status; Z79.899 Other long term (current) drug therapy; Z79.01 Long term (current) use of anticoagulants; Z79.51 Long term (current) use of inhaled steroids
CPT/HCPCS: 80048; 85025; 85652; 86140; 96374; 96375; 99284; J1200; J2930

== ENCOUNTER → 2019-04-13 | Outpatient (CLI) | payer OTHER ==
[~2019-04-13] VITALS: Ht 172.7 cm; Wt 85.3 kg
[~2019-04-13] MED LIST changes: +BUPIVACAINE HCL 0.25% 30 ML VIAL As Ordered ONE; +ENOX80IN3 SQ; +LR 1,000 ML IV ONE; +PRED20TA PO; +TIZA4TAB4 PO
[2019-04-13 07:30] LABS: HEMOGLOBIN 13.3 g/dl (12.0-15.5); MEAN CORPUSCULAR HEMOGLOBIN 27.8 pg (27.0-33.0); MEAN CORPUSCULAR HGB CONC 31.7 g/dl (32.0-36.5); MEAN CORPUSCULAR VOLUME 87.7 fl (80.0-96.0); PLATELET COUNT, AUTOMATED 182 10^3/uL (150-450); RED BLOOD COUNT 4.79 10^6/uL (4.00-5.40); WHITE BLOOD COUNT 8.3 10^3/uL (4.0-10.0)
[2019-04-13 07:41] LABS: INR 1.47; PROTHROMBIN TIME 17.6 SECONDS (11.8-14.0)
[2019-04-13 07:42] VITALS: BP 124/75
[2019-04-13 07:54] LABS: CREATININE FOR GFR 1.12 MG/DL (0.55-1.30)
[2019-04-13 07:55] LABS: CALCIUM LEVEL 8.5 MG/DL (8.5-10.1); GLOMERULAR FILTRATION RATE 55.3 (>58); POTASSIUM SERUM 4.1 MEQ/L (3.5-5.1)
== END ==
LOC: M SDC 07:08 → EDSTATUS 09:30
PROVIDERS: ATTEND Specialist
DX: N39.3 Stress incontinence (female) (male) (principal); M54.5 Low back pain; Z53.8 Procedure and treatment not carried out for other reasons

== ENCOUNTER 2019-04-18 11:29 | Day surgery (SDC) | payer OTHER ==
[~2019-04-18] VITALS: Ht 172.7 cm; Wt 85.6 kg
[~2019-04-18 11:29] MED LIST changes: -BUPIVACAINE HCL 0.25% 30 ML VIAL As Ordered ONE
[2019-04-18] MEDS ORDERED: LIDOCAINE 2% INJ 100 MG/5 ML SDV (FOR ANES.) As Ordered ONE (11:56)
[2019-04-18] MEDS ORDERED: fentaNYL 100 MCG/2 ML INJECTION (J3010) As Ordered ONE (11:57)
[2019-04-18] MEDS ORDERED: MIDAZOLAM INJ 2 MG/2 ML VIAL (J2250) As Ordered ONE (11:57)
[2019-04-18 12:15] LABS: INR 1.05; PROTHROMBIN TIME 13.4 SECONDS (11.8-14.0)
[2019-04-18] MEDS ORDERED: dexameTHASONE 4 MG/ML 1ML VIAL (J1100) As Ordered ONE (12:22)
[2019-04-18] MEDS ORDERED: ONDANSETRON 4MG/2ML VIAL (J2405) As Ordered ONE (12:22)
[2019-04-18] MEDS ORDERED: BUPIVACAINE HCL 0.25% 30 ML VIAL As Ordered ONE (12:27)
[2019-04-18] MEDS ORDERED: PROPOFOL 200 MG/20 ML VIAL As Ordered ONE (12:58)
[2019-04-18] MEDS ORDERED: KETOROLAC 30 MG/ML VIAL (J1885) IV PRN (14:15)
[2019-04-18] MEDS ORDERED: ONDANSETRON 4MG/2ML VIAL (J2405) IV PRN (14:15)
[2019-04-18] MEDS ORDERED: METOCLOPRAMIDE INJ 10MG/2ML VIAL (J2765) IV PRN (14:15)
[2019-04-18] MEDS ORDERED: fentaNYL 100 MCG/2 ML INJECTION (J3010) IV PRN (14:15)
[2019-04-18] MEDS ORDERED: LR 1,000 ML IV SCH (14:15)
[2019-04-18] MEDS ORDERED: PERCOCET 5MG/325MG TAB PO PRN (14:15)
--- NOTE | 2019-04-18 15:02 | RO ---
DATE OF OPERATION: 04/18/2019 PREOPERATIVE DIAGNOSIS: Stress urinary incontinence. POSTOPERATIVE DIAGNOSIS: Stress urinary incontinence. PROCEDURE: Tension-free vaginal tape-obturator approach, cystoscopy. SURGEON: Vince Boo MD AUTOMATIC BLOCKER: ANESTHESIA: General endotracheal. ESTIMATED BLOOD LOSS: 50 mL. URINE OUTPUT: 100 mL. FINDINGS: Normal vagina with normal bladder and ureteral jets identified on cystoscopy. DESCRIPTION OF PROCEDURE: Operative summary: The patient taken to the operating room where general endotracheal anesthesia is induced. She is prepped and draped in sterile fashion in the dorsal lithotomy position. The bladder was emptied with a catheter. Appropriate areas in the groin adjacent to the clitoral castillo were marked with a marking pen. These areas were injected with 0.25% Marcaine. An Allis clamp was used to grasp the vaginal mucosa overlying the urethra in the midline approximately 1 cm from the urethral meatus. A 1-cm incision was created vertically. The incision was grasped with Allis clamps. Metzenbaum scissors were used to dissect the space at the urethrovesical junction. A wing guide was place through this space. The tension-free vaginal tape-obturator (TVT-O) Gynecare device was passed over the wing guide through the obturator frame and exited the premarked area in the groin. The same was performed on the opposite side. With the protective sheath in place, the mesh was pulled into place. A Elisa clamp was placed between the mesh and urethra to ensure tension-free application. The protective sheaths were removed. The excess mesh was excised. The incision was irrigated. The vaginal mucosa was closed with 2-0 Vicryl interrupted sutures. Cystoscopy was performed using a 70-degree cystoscope bilaterally. Ureteral jets were identified. There was no evidence of injury to the bladder. All instruments were removed. Sponge, instrument, and needle counts were correct. The patient was extubated and went to the recovery room. ELICIA
[2019-04-18] MEDS ORDERED: OXYC1TAB23 PO (15:48)
[2019-04-18 16:55] VITALS: BP 141/83
== END 2019-04-18 16:59 | disposition home or self-care (01) ==
LOC: M SDC 11:29
PROVIDERS: ATTEND Specialist
DX: N39.3 Stress incontinence (female) (male) (principal); I48.91 Unspecified atrial fibrillation; I10 Essential (primary) hypertension; Z95.0 Presence of cardiac pacemaker; K21.9 Gastro-esophageal reflux disease without esophagitis; J44.9 Chronic obstructive pulmonary disease, unspecified; D64.9 Anemia, unspecified; Z79.01 Long term (current) use of anticoagulants; F17.218 Nicotine dependence, cigarettes, with other nicotine-induced disorders; F41.9 Anxiety disorder, unspecified; F32.9 Major depressive disorder, single episode, unspecified; Z79.899 Other long term (current) drug therapy; Z91.040 Latex allergy status; Z91.030 Bee allergy status; Z88.0 Allergy status to penicillin; Z88.2 Allergy status to sulfonamides; Z85.41 Personal history of malignant neoplasm of cervix uteri
CPT/HCPCS: 36415; 57288; 85610; C1771; J1100; J1885; J2250; J2405; J3010

== ENCOUNTER 2019-12-21 16:09 | Emergency (ER) | payer OTHER, MEDICAID ==
[~2019-12-21] VITALS: Ht 170.2 cm; Wt 80.7 kg
[~2019-12-21 16:09] MED LIST changes: -LR 1,000 ML IV ONE; +OMEP1CAP73 PO; -OMEP20CA4 PO; +OXYC1TAB23 PO
[2019-12-21] MEDS ORDERED: LIDOCAINE 5% (LIDODERM) PATCH TD ONE (18:15)
[2019-12-21] MEDS ORDERED: LIDO5DIS41 TD (18:29)
[2019-12-21 18:32] VITALS: BP 131/74
[2019-12-21] MEDS ORDERED: **NOTE PATIENT COMMENT** MISC XX SCH (21:00)
--- NOTE | 2019-12-22 03:11 | REP ---
RIBS: REASON: Pain after trauma. There are no priors for comparison. FINDINGS: Five views of the ribs show no acute fracture or destructive osseous lesion. IMPRESSION: Negative ribs series without frontal view of the chest. Electronically Signed by Villa Allen DO 12/22/2019 08:11 A
--- NOTE | 2019-12-22 03:13 | REP ---
SHOULDER: REASON: Pain after trauma. COMPARISON: No priors. FINDINGS: Three views of the right shoulder were performed. The acromioclavicular and glenohumeral relationships are within normal limits. There is no acute fracture or destructive osseous lesions. Electronically Signed by Villa Allen DO 12/22/2019 08:11 A
--- NOTE | 2019-12-22 03:14 | REP ---
HIP: REASON: Pain after trauma. FINDINGS: The hip joint space is symmetric and relatively well maintained. There is no acute or destructive osseous lesion. Electronically Signed by Villa Allen DO 12/22/2019 08:11 A
== END 2019-12-21 18:37 | disposition home or self-care (01) ==
LOC: M ED 16:09
DX: S20.211A Contusion of right front wall of thorax, initial encounter (principal); W01.0XXA Fall on same level from slipping, tripping and stumbling without subsequent striking against object, initial encounter; F12.10 Cannabis abuse, uncomplicated; F17.200 Nicotine dependence, unspecified, uncomplicated; J44.9 Chronic obstructive pulmonary disease, unspecified; Z79.01 Long term (current) use of anticoagulants; Z79.891 Long term (current) use of opiate analgesic; Z79.51 Long term (current) use of inhaled steroids; Z79.899 Other long term (current) drug therapy; Z88.0 Allergy status to penicillin; Z88.1 Allergy status to other antibiotic agents; Z88.2 Allergy status to sulfonamides; Z91.030 Bee allergy status; Z91.040 Latex allergy status; Z95.4 Presence of other heart-valve replacement; Y92.9 Unspecified place or not applicable; Y93.9 Activity, unspecified; Y99.9 Unspecified external cause status

== ENCOUNTER 2020-09-06 13:30 | Emergency (ER) | payer MEDICAID, OTHER ==
[~2020-09-06] VITALS: Ht 167.6 cm; Wt 83.0 kg
[~2020-09-06 13:30] MED LIST changes: +ACET-838 PO; +AMIO400T8 PO; +GABA-282 PO; -GABA-843 PO; +LIDO5DIS41 TD; -NON-325T5 PO; -PACE400T PO
[2020-09-06] MEDS ORDERED: DOXY100C (13:41)
[2020-09-06] MEDS ORDERED: ONDANSETRON 4 MG ORAL DISINTEGRATING TAB PO ONE (15:10)
--- NOTE | 2020-09-06 15:54 | REP ---
INDICATION: SOB. COMPARISON: 12/10/2018. TECHNIQUE: SINGLE PORTABLE AP VIEW OF THE CHEST WAS PERFORMED. FINDINGS: THERE IS NO ACUTE INFILTRATE OR PULMONARY EDEMA. LUNGS ARE CLEAR. HEART IS NOT SIGNIFICANTLY ENLARGED. MEDIASTINAL SILHOUETTE IS UNREMARKABLE. THE VISUALIZED OSSEOUS STRUCTURES ARE INTACT.Prosthetic heart valve is noted. IMPRESSION: NO ACUTE PULMONARY DISEASE. <Electronically signed by Alexis Jain > 09/06/20 [id number]
[2020-09-06 16:07] LABS: BASO % 0.5 % (0.0-1.0); EOS # 0.1 10^3/uL (0.0-0.5); EOS % 1.1 % (0.0-3.0); HEMATOCRIT 44.2 % (36.0-47.0); HEMOGLOBIN 14.2 g/dl (12.0-15.5); LYMPH # 2.3 10^3/uL (1.5-5.0); LYMPH % 29.6 % (24.0-44.0); MEAN CORPUSCULAR HEMOGLOBIN 27.6 pg (27.0-33.0); MEAN CORPUSCULAR HGB CONC 32.1 g/dl (32.0-36.5); MONO # 0.6 10^3/uL (0.0-0.8); MONO % 7.8 % (2.0-8.0); NEUTROPHILS # 4.6 10^3/uL (1.5-8.5); NEUTROPHILS % 60.6 % (36.0-66.0); PLATELET COUNT, AUTOMATED 179 10^3/uL (150-450); RED BLOOD COUNT 5.14 10^6/uL (4.00-5.40); WHITE BLOOD COUNT 7.6 10^3/uL (4.0-10.0)
[2020-09-06 16:19] LABS: INR 1.06; PROTHROMBIN TIME 14.1 SECONDS (12.5-14.3)
[2020-09-06 16:20] LABS: PARTIAL THROMBOPLASTIN TIME 28.8 SECONDS (24.2-38.5)
[2020-09-06 16:35] LABS: ALBUMIN 3.6 GM/DL (3.2-5.2); ALT/SGPT 17 U/L (12-78); BILIRUBIN,DIRECT 0.1 MG/DL (0.0-0.2); BILIRUBIN,TOTAL 0.4 MG/DL (0.2-1.0); BLOOD UREA NITROGEN 19 MG/DL (7-18); CALCIUM LEVEL 8.5 MG/DL (8.5-10.1); CARBON DIOXIDE LEVEL 30 MEQ/L (21-32); CHLORIDE LEVEL 106 MEQ/L (98-107); CK-MB VALUE MASS < 1.0 NG/ML (<3.6); CPK CREATINE PHOSPHOKINASE 42 U/L (26-192); CREATININE FOR GFR 0.94 MG/DL (0.55-1.30); GLOMERULAR FILTRATION RATE > 60.0 (>58); GLUCOSE, FASTING 91 MG/DL (70-100); LIPASE 104 U/L (73-393); MB/CK RELATIVE INDEX 2.38 (< OR =4); SODIUM LEVEL 140 MEQ/L (136-145); TOTAL PROTEIN 6.9 GM/DL (6.4-8.2); TROPONIN I < 0.02 NG/ML (< 0.10)
[2020-09-06 17:16] VITALS: BP 135/86
--- NOTE | 2020-09-07 06:35 | ECGEPIP ---
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
== END 2020-09-06 17:30 | disposition home or self-care (01) ==
LOC: M ED 13:30
DX: J40 Bronchitis, not specified as acute or chronic (principal); R11.2 Nausea with vomiting, unspecified; J44.9 Chronic obstructive pulmonary disease, unspecified; K21.9 Gastro-esophageal reflux disease without esophagitis; F43.10 Post-traumatic stress disorder, unspecified; I44.0 Atrioventricular block, first degree; Z95.2 Presence of prosthetic heart valve; F17.210 Nicotine dependence, cigarettes, uncomplicated; Z88.0 Allergy status to penicillin; Z88.2 Allergy status to sulfonamides; Z88.6 Allergy status to analgesic agent; Z91.030 Bee allergy status; Z91.040 Latex allergy status; Z79.899 Other long term (current) drug therapy; Z79.01 Long term (current) use of anticoagulants
CPT/HCPCS: 71045; 80048; 80076; 82550; 82553; 83690; 85025; 85610; 85730; 93005; 93041; 94760; 99284; Q0162

== ENCOUNTER 2020-11-20 13:15 | Emergency (ER) | payer OTHER, MEDICAID ==
[~2020-11-20] VITALS: Ht 165.1 cm; Wt 86.6 kg
[2020-11-20 13:15] VITALS: BP 113/67
[~2020-11-20 13:15] MED LIST changes: -ACET-838 PO; +ACET32TAB PO; +DOXY100C
--- NOTE | 2020-11-20 14:26 | REP ---
INDICATION: crush injury COMPARISON: 07/14/2016. TECHNIQUE: Four views right hand. FINDINGS: There is no evidence of acute fracture, dislocation, or intrinsic bone disease. IMPRESSION: No fracture or dislocation. <Electronically signed by Alexis Jain > 11/20/20 1117
== END 2020-11-20 16:13 | disposition home or self-care (01) ==
LOC: M ED 13:15
DX: S60.221A Contusion of right hand, initial encounter (principal); W23.1XXA Caught, crushed, jammed, or pinched between stationary objects, initial encounter; J44.9 Chronic obstructive pulmonary disease, unspecified; K21.9 Gastro-esophageal reflux disease without esophagitis; I10 Essential (primary) hypertension; I48.91 Unspecified atrial fibrillation; Z88.0 Allergy status to penicillin; Z88.1 Allergy status to other antibiotic agents; Z88.2 Allergy status to sulfonamides; Z88.6 Allergy status to analgesic agent; Z91.040 Latex allergy status; Z91.030 Bee allergy status

== ENCOUNTER 2021-05-01 17:30 | Emergency (ER) | payer OTHER, MEDICAID ==
[~2021-05-01] VITALS: Ht 165.1 cm; Wt 89.6 kg
[~2021-05-01 17:30] MED LIST changes: -DOXY100C; +DOXY100C3
--- OUTSIDE RECORDS SUMMARY | 2021-05-01 17:39 | CCD ---
Author Author [facility] Organization [facility] Address Unknown Phone Unavailable Care Team Providers Care Health Tech Name Role Phone Vince Gonzales Unavailable PROBLEMS Type Condition ICD9-CM Code TAH70-SX Code Onset Dates Condition S tatus W/U Status Risk SNOMED Code Notes Problem Interstitial fibrosis J84.10 Active confirmed 073101562 Problem Seasonal allergic rhinitis J30.2 Active confirmed 965622705 Problem Cervicalgia M54.2 Active confirmed 64710156 Problem GERD without esophagitis K21.9 Active confirmed 799480838 Problem Other chronic pain G89.29 Active confirmed 8 2182520 Problem Chronic midline low back pain without sciatica M54 .5 Active confirmed 463706733 Problem Vitamin D insufficiency E55.9 Active confirmed 443167070 Problem Chronic obstructive pulmonary disease, unspecified COPD ty pe J44.9 Active confirmed 62589665 Problem Stress incontinence N39.3 Active confirmed 96595711 Problem Tobacco use disorder F17.200 Active confirmed 012664727 Problem Depressed mood F32.9 Active confirmed 20001 9004 Problem Chronic GERD K21.9 Active confirmed 2499253 09 Problem COPD exacerbation J44.1 Active confirmed 19 2573964 Problem Tobacco dependence F17.200 Active confirmed 31763914 Problem Chronic atrial fibrillation I48.2 Active confirmed 292276273 Problem Stress incontinence of urine N39.3 Active confirme d 44445522 Problem Depression with anxiety F41.8 Active confirmed 710586593 Problem Essential hypertension I10 Active confirmed 89737834 Problem S/P MVR (mitral valve replacement) Z95.2 Activ e confirmed 801339748 Problem Mixed incontinence N39.46 Active confirmed 4 43725279 Problem Influenza vaccination declined Z28.21 Active confir med 125671844 Problem Seasonal allergies J30.2 Active confirmed 4 73995745 Problem Chronic anticoagulation Z79.01 Active confirmed 958201930 ALLERGIES Allergen (clinical drug ingredient) Drug/Non Drug Allergy do cumented on EMR Reaction Allergy Type Onset Date Status Sulfa (for allergy use only) rash? has as a child Drug All ergy Active Penicillin (For Allergies Use Only) swelling, breathing di ff Drug Allergy Active aspirin Aspirin([facility] Code:[address]-15) swelling, breathing diff D rug Allergy Active enviromental Hives Non Drug Allergy Active Latex (for allergy use only) Rash Drug Allergy Active ENCOUNTERS from 1971 to 2021-03-14 Encounter Location Date Provider Diagnosis [facility] [address] [facility] [phone] [place] [address] Feb, [facility] IMMUNIZATIONS Vaccine Route Administration Date Status Influenza 18 yrs & older Flublok IM Intramuscular Apr 25, 2019 Administered Pneumococcal Adult 0.5mL Pneumovax 23 IM Intramuscular November 25, 2017 Administered COVID-19 dose #1 given elsewhere Unspecified Unknown Aug Administered Influenza 18 yrs & older Flublok Unknown Apr 05, 2018 Administered TDAP 0.5mL (Boostrix) IM Intramuscular November 25, 2017 Administe red Pneumococcal 0.5mL Prevnar 13 IM Intramuscular Jul 29, 2016 A dministered Influenza 18 yrs & older Flublok IM Intramuscular Mar 29, 2020 Administered Influenza 6mo & up Fluzone Unknown Apr 06, 2017 Admin istered Influenza 6mo & up Fluzone IM Intramuscular May 09, 2016 Admi nistered Influenza 6mo & up Fluzone IM Intramuscular Mar 16, 2014 Admi nistered SOCIAL HISTORY Tobacco Use: Social History Observation Description Date Details (start date - stop date) Current Smoker Sex Assigned At : Social History Observation Description Sex Assigned At Unknown Education: Question Answer Notes Level of Education: High School Audit Question Answer Notes Total Score: 0 Interpretation: Alcohol Education Language: Question Answer Notes Languages spoken: Maldivian Baptist: Question Answer Notes [employer] 03 [employer] Sexual Hx: Question Answer Notes Had sex in the last 12 months (vaginal, oral, or anal)? Yes Have you ever had an STD? No with Men only Drug and Alcohol Question Answer Notes Total Score: 1 Interpretation: Low level Alcohol Screening: Question Answer Notes Did you have a drink containing alcohol in the past year? No Points 0 Interpretation Negative BMI Care Goal Follow-Up Question Answer Notes Above Normal BMI Follow-Up Dietary management educatio n, guidance, and counseling Tobacco Use: Question Answer Notes Are you a: current smoker Smoking Cessation Information Given 08/31/2020 Patient counseled on the dangers of tobacco use and urged to quit: 08/31/2020 How many cigarettes a day do you smoke? 6-10 since age 10, total 30 pack year history Are you interested in quitting? Not ready to quit REASON FOR REFERRAL No Information VITAL SIGNS No information MEDICATIONS Medication SIG (Take, Route, Frequency, Duration) Notes Start Da te End Date Status Sertraline HCl 100 MG 1 tablet in the morning Orally Once a day for 9 0 Not-Taking Coumadin 5 MG 1 tablet Orally Daily Active Gabapentin 300 MG 1 capsule Orally bid for 90 days Not-Taking Doxycycline Hyclate 100 MG 1 capsule Orally every 12 hrs for 10 day(s) Aug, Not-Taking Metoprolol Tartrate 25 MG 1/2 tablet Orally tid Active Furosemide [address] teresa Orally Once a day/prn PRN Active tiZANidine HCl 4 MG 1 tablet as needed Orally bid prn for 30 days Active buPROPion HCl ER (SR) 150 MG 1 tablet Orally Twice a day for 30 day(s) Dec, Not-Taking predniSONE 20 MG 1 tablet Orally Once a day for 3 days Aug, Not-Taking Fluticasone Propionate 50 MCG/ACT 1 spray in each nost ril Nasally bid for 30 day(s) Not-Taking Singulair 10MG 1 tablet in the evening Orally Once a day for 90 days Active Ventolin HFA 108MCG/A 1-2 puffs as needed Inhalation every 4-6 hrs 90 Active DuoNeb 0.5-2.5 (3) MG/3ML 3 ml as needed via nebulizer Inhalation qid prn for 90 days Jul, Active Advair Diskus 250-50 MCG/DOSE 1 puff Inhalation Twice a day for 90 day(s) Apr, Active Nebulizer 1 as directed for inhalation of duonebs as directe d for 90 day(s) Jul, Active Nebulizer/Adult Mask 1 as directed via nebulizer as directed for 90 day(s) Jul, Active Omeprazole 20 MG TAKE ONE CAPSULE BY MOUTH TWICE A DAY Oral for 90 Not-Taking Nebulizer/Tubing/Mouthpiece as directed Daily for 999 days Dx: J 44.9 October, Active ZyrTEC Allergy 10 MG 1 tablet Orally Once a day for 90 days Mar, Active PROCEDURES No Information RESULTS No Results REASON FOR VISIT Discharged from practice MEDICAL (GENERAL) HISTORY Type Description Date Medical History Chronic atrial fibrillation Medical History Essential hypertension Medical History Chronic obstructive pulmonary disease, u nspecified COPD type Medical History Non-rheumatic mitral valve stenosis Medical History S/P MVR (mitral valve replacement) Medical History Interstitial fibrosis Medical History GERD without esophagitis Medical History Seasonal allergic rhinitis Medical History Cervicalgia Medical History Other chronic pain Medical History Stress incontinence Medical History Tobacco dependence Medical History H/o Cervical dysplasia Medical History Chronic anticoagulation, Surgical History tubal ligation 06/1997 Surgical History LEEP ? Surgical History ablasion 05/21 Surgical History heart valve replacement 03/2015 Surgical History TVT, cystoscopy 04/18/2019 Hospitalization History a-fib [facility] - Dr Summers 12/06/[address] [facility] 03/2015 Hospitalization History [facility] 12/2017 Goals Section No Information Health Concerns No Information MEDICAL EQUIPMENT No Information MENTAL STATUS No Information FUNCTIONAL STATUS No Information ASSESSMENTS No Information PLAN OF TREATMENT Medication Medication Name Sig Start Date Stop Date Ventolin HFA 108MCG/A 1-2 puffs as needed Inhalation every 4-6 h rs for 90 Nebulizer/Tubing/Mouthpiece as directed Daily for 999 days 2020 Advair Diskus 250-50 MCG/DOSE 1 puff Inhalation Twice a day for 90 day(s) Apr, Singulair 10MG 1 tablet in the evening Orally Once a day for 90 days tiZANidine HCl 4 MG 1 tablet as needed Orally bid prn for 30 day s ZyrTEC Allergy 10 MG 1 tablet Orally Once a day for 90 days 2019 Insurance Providers Payer Name Payer Address Payer Phone Insured Name Patient Relati onship to Insured Coverage Start Date Coverage End Date [facility] [address] [facility] [id number] [employer] MEDICAID [email or web address] D[employer] [address] [facility] [id number] [employer]
--- OUTSIDE RECORDS SUMMARY | 2021-05-01 17:39 | CCD ---
Author Author [facility] Organization [facility] Address Unknown Phone Unavailable Care Team Providers Care Journalism Internship Name Role Phone Nimisha Loaiza Unavailable Unavailable Loaiza, L Mere PA Unavailable Unavailable Loaiza, L Mere PA Unavailable Unavailable Loaiza, L Mere PA Unavailable Unavailable Loaiza, L Mere PA Unavailable Unavailable Loaiza, L Mere PA Unavailable Unavailable Loaiza, L Mere PA Unavailable Unavailable Loaiza, L Mere PA Unavailable Unavailable Loaiza, L Mere PA Unavailable Unavailable Loaiza, L Mere PA Unavailable Unavailable Loaiza, L Mere PA Unavailable Unavailable Loaiza, L Mere PA Unavailable Unavailable Loaiza, L Mere PA Unavailable Unavailable Loaiza, L Mere PA Unavailable Unavailable Loaiza, L Mere PA Unavailable Unavailable Loaiza, L Mere PA Unavailable Unavailable Loaiza, L Mere PA Unavailable Unavailable Loaiza, L Mere PA Unavailable Unavailable Loaiza, L Mere PA Unavailable Unavailable Loaiza, L Mere PA Unavailable Unavailable Loaiza, L Mere PA Unavailable Unavailable Loaiza, L Mere PA Unavailable Unavailable Loaiza, L Mere PA Unavailable Unavailable Loaiza, L Mere PA Unavailable Unavailable Loaiza, L Mere PA Unavailable Unavailable Loaiza, L Mere PA Unavailable Unavailable Loaiza, L Mere PA Unavailable Unavailable Loaiza, L Mere PA Unavailable Unavailable Loaiza, L Mere PA Unavailable Unavailable Loaiza, L Mere PA Unavailable Unavailable Loaiza, L Mere PA Unavailable Unavailable Loaiza, L Mere PA Unavailable Unavailable Loaiza, L Mere PA Unavailable Unavailable Loaiza, L Mere PA Unavailable Unavailable Loaiza, L Mere PA Unavailable Unavailable Loaiza, L Mere PA Unavailable Unavailable Loaiza, L Mere PA Unavailable Unavailable Loaiza, L Mere PA Unavailable Unavailable Loaiza, L Mere PA Unavailable Unavailable Alberto, V YANY PA-C Unavailable Unavailable Hopkins, V YANY PA-C Unavailable Unavailable Alberto, V YANY PA-C Unavailable Unavailable Alberto, V YANY PA-C Unavailable Unavailable Alberto, V YANY PA-C Unavailable Unavailable Hopkins, V YANY PA-C Unavailable Unavailable Alberto, V YANY PA-C Unavailable Unavailable Hopkins, V YANY PA-C Unavailable Unavailable Alberto, V YANY PA-C Unavailable Unavailable Alberto, V YANY PA-C Unavailable Unavailable Alberto, V YANY PA-C Unavailable Unavailable Hopkins, V YANY PA-C Unavailable Unavailable Alberto, V YANY PA-C Unavailable Unavailable Hopkins, V YANY PA-C Unavailable Unavailable Norberto Michael MD Unavailable Unavailable Norberto Michael MD Unavailable Unavailable Norberto Michael MD Unavailable Unavailable Norberto Michael MD Unavailable Unavailable Norberto Michael MD Unavailable Unavailable Norberto Michael MD Unavailable Unavailable Norberto Michael MD Unavailable Unavailable Norberto Michael MD Unavailable Unavailable Norberto Michael MD Unavailable Unavailable Norberto Michael MD Unavailable Unavailable Norberto Michael MD Unavailable Unavailable Norberto Michael MD Unavailable Unavailable Norberto Michael MD Unavailable Unavailable Norberto Michael MD Unavailable Unavailable SlesandykaNorberto MD Unavailable Unavailable SlezkaNorberto MD Unavailable Unavailable SlezkaTanojtech Unavailable Unavailable SlezkaTanojtech Unavailable Unavailable SlezkaTanojtech Unavailable Unavailable SlezkaTanojtech Unavailable Unavailable SlezkaTanojtech Unavailable Unavailable SlezkaTanojtech Unavailable Unavailable SlezkaTanojtech Unavailable Unavailable SlezkaTanojtech Unavailable Unavailable SlezkaTanojtech Unavailable Unavailable SlezkaTanojtech Unavailable Unavailable SlezkaTanojtech Unavailable Unavailable SlezkaTanojtech Unavailable Unavailable SlezkaTanojtech Unavailable Unavailable SlezkaTanojtech Unavailable Unavailable SlezkaTanojtech Unavailable Unavailable SlesandykaTanojtech Unavailable Unavailable SlezkaTanojtech Unavailable Unavailable SlezkaTanojtech Unavailable Unavailable SlezkaTanojtech Unavailable Unavailable SleNorberto diallo MD Unavailable Unavailable SlesandykaTanojtech Unavailable Unavailable SleNorberto diallo MD Unavailable Unavailable SlezkaTanojtech Unavailable Unavailable SlezkaTanojissa LEUNG Unavailable Unavailable SlezkaTanojtech Unavailable Unavailable SlezkaTanojtech Unavailable Unavailable SlezkaTanojtech Unavailable Unavailable SlezkaTanojtech Unavailable Unavailable SlezkaTanojtech Unavailable Unavailable SlezkaTanojtech Unavailable Unavailable SlezkaTanojtech Unavailable Unavailable SlezkaNorberto MD Unavailable Unavailable SlezkaNorberto MD Unavailable Unavailable SlezkaTanojtech Unavailable Unavailable SlezkaNorberto MD Unavailable Unavailable SlezkaTanojtech Unavailable Unavailable SlezkaDafnetech Unavailable Unavailable SlezkaTanojtech Unavailable Unavailable SlezkaTanojtech Unavailable Unavailable SlezkaTanojtech Unavailable Unavailable SlezkaTanojtech Unavailable Unavailable SlezkaTanojtech Unavailable Unavailable SlezkaTanojtech Unavailable Unavailable Re-disclosure Warning The records that you are about to access may contain information from federally-assisted alcohol or drug abuse programs. If such information is present, then the following federally mandated warning applies: This information has been disclosed to you from records protected by federal confidentiality rules (42 CFR part 2). The federal rules prohibit you from making any further disclosure of this information unless further disclosure is expressly permitted by the written consent of the person to whom it pertains or as otherwise permitted by 42 CFR part 2. A general authorization for the release of medical or other information is NOT sufficient for this purpose. The Federal rules restrict any use of the information to criminally investigate or prosecute any alcohol or drug abuse patient.The records that you are about to access may contain highly sensitive health information, the redisclosure of which is protected by Article 27-F of the [facility] Public Health law. If you continue you may have access to information: Regarding HIV / AIDS; Provided by facilities licensed or operated by the [facility] Office of Mental Health; or Provided by the [facility] Office for People With Developmental Disabilities. If such information is present, then the following [facility] mandated warning applies: This information has been disclosed to you from confidential records which are protected by state law. State law prohibits you from making any further disclosure of this information without the specific written consent of the person to whom it pertains, or as otherwise permitted by law. Any unauthorized further disclosure in violation of state law may result in a fine or long term sentence or both. A general authorization for the release of medical or other information is NOT sufficient authorization for further disc losure. Family History Family Member Name Family Member Gender Family Member Status Date o f Status Description Data Source(s) Unknown [facility] Unknown Female Problem MEDENT ([facility]) Unknown Female Problem MEDENT ([facility]) Unknown Female Problem MEDENT ([facility]) Encounters Encounter Providers Location Date Indications Data Source(s ) Outpatient [facility] 04/25/2021 12:00:00 AM EST [facility] Outpatient [facility] 04/04/2021 12:00:00 AM EDT [facility] Outpatient [facility] 03/21/2021 12:00 :00 AM EDT - 03/21/2021 02:48:55 PM EDT [facility] Outpatient Attender: Norberto RAMIRES-SJP.[facility] 02/08 12:00:00 AM EDT - 03/07/2021 02:41:51 PM EDT [facility] Outpatient [facility] 02/28/2021 12:00 :00 AM EDT - 02/28/2021 02:54:28 PM EDT [facility] Unknown [address], [place] [address] 02/25/2021 12:00:00 AM EDT eC ([facility]) Outpatient SJP.[facility] 02/21/2021 12:00 :00 AM EDT - 02/21/2021 02:36:54 PM EDT [facility] Outpatient [facility] 02/14/2021 12:00:00 AM EDT [facility] Outpatient [facility] 01/31/2021 12:00:00 AM EDT [facility] Outpatient [facility] 01/24/2021 12:00:00 AM EDT [facility] Outpatient [facility] 01/17/2021 02:27 :44 PM EDT - 01/17/2021 02:59:55 PM EDT [facility] Outpatient [facility] 01/10/2021 12:00:00 AM EDT [facility] Outpatient [facility] 01/03/2021 12:00:00 AM EDT [facility] Outpatient [facility] 12/28/2020 12:00:00 AM EDT [facility] Outpatient [facility] 12/21/2020 12:59:58 PM EDT [facility] Outpatient [facility] 12/06/2020 12:00:00 AM EDT [facility] Outpatient Attender: YANY Dominguez PA-C [facility] 12:00:00 AM EDT - 11/28/2020 03:57:41 PM EDT [facility] Outpatient [facility] 11/28/2020 12:00:00 AM EDT [facility] Outpatient [facility] 11/02/2020 12:00:00 AM EDT [facility] Outpatient [facility] 10/19/2020 01:47:12 PM EDT [facility] Outpatient [facility] 10/12/2020 12:00:00 AM EDT [facility] Unknown [address] [address] 10/09/2020 12:00:00 AM EDT eCW1 ([facility]) [place] [address] [address] 10/08/2020 12:00:00 AM EDT eCW1 ([facility]) [place] [address] [address] 10/02/2020 12:00:00 AM EDT eCW1 ([facility]) [place] [address] [address] 10/02/2020 12:00:00 AM EDT eCW1 ([facility]) Outpatient SJP.[facility]-TUCKERP.[facility] 09/28/2020 12:00:00 AM EDT [facility] Unknown [address] [address] 09/24/2020 12:00:00 AM EDT eCW1 ([facility]) Outpatient SJP.[facility]-TUCKERP.[facility] 09/20/2020 01:07:42 PM EDT [facility] Unknown [address] [address] 09/18/2020 12:00:00 AM EDT eCW1 ([facility]) Outpatient SJP.[facility]OR-SJP.[facility] 09/14/2020 01:21:35 PM EDT [facility] Outpatient SJP.[facility]-SJP.[facility] 09/07/2020 12:00:00 AM EDT [facility] Outpatient [address] [address] 08/31/2020 12:00:00 AM EDT eCW1 ([facility]) [place] [address] [address] 08/31/2020 12:00:00 AM EDT eCW1 ([facility]) Outpatient SJP.[facility]-SJP.[facility] 08/03/2020 12:00:00 AM EST [facility] Outpatient SJP.[facility]-SJP.[facility] 05/30/2020 12:00:48 PM EST [facility] Unknown [address] [address] 05/30/2020 12:00:00 AM EST eCW1 ([facility]) Outpatient SJP.[facility]ADOR-SJP.[facility] 05/23/2020 01:15:51 PM EST [facility] Outpatient SJP.[facility]-SJP.[facility] 05/09/2020 12:00:00 AM EST [facility] Outpatient Referrer: Mere RAMIRES-DOMINIC.SALVADOR 07/2019 12:00:00 AM EST [facility] Outpatient Referrer: Mere RAMIRES-DOMINIC.SALVADOR 07/2019 12:00:00 AM EST [facility] Outpatient Attender: Mere AGUILAR.SALVADOR 11/2019 12:58:05 PM EST - 04/13/2020 02:04:08 PM EST [facility] Outpatient SJP.[facility]-SJP.[facility] 04/13/2020 12:00:00 AM EST [facility] Outpatient SJP.[facility]-SJP.[facility] 04/02/2020 11:34 :39 AM EDT - 04/02/2020 12:35:26 PM EDT [facility] Outpatient [address] [address] 03/29/2020 12:00:00 AM EDT eCW1 ([facility]) Immunizations Vaccine Date Status Description Data Source(s) COVID-19 VACCINE Moderna 12/21/2020 12:00:00 AM EDT completed NYSIIS Vaccine Series Complete: YESThis Data wa s Submitted to [facility] [employer] COVID-19 dose #1 given elsewhere Unspecified 08/10/2020 04:3 1:00 PM EST completed eCW1 ([facility]) COVID-19 dose #1 given elsewhere Unspecified 08/10/2020 04:3 1:00 PM EST completed eCW1 ([facility]) COVID-19 dose #1 given elsewhere Unspecified 08/10/2020 04:3 1:00 PM EST completed eCW1 ([facility]) COVID-19 VACCINE Moderna 08/10/2020 12:00:00 AM EST completed NYSIIS Vaccine Series Complete: NOThis Data was Submitted to [facility] [employer] influenza, recombinant, quadrIvalent,injectable, prese rvative free 03/29/2020 03:50:00 PM EDT completed eCW1 ([facility]) influenza, recombinant, quadrIvalent,injectable, prese rvative free 03/29/2020 03:50:00 PM EDT completed eCW1 ([facility]) influenza, recombinant, quadrIvalent,injectable, prese rvative free 03/29/2020 03:50:00 PM EDT completed eCW1 ([facility]) influenza, recombinant, quadrIvalent,injectable, prese rvative free 03/29/2020 03:50:00 PM EDT completed eCW1 ([facility]) influenza, recombinant, quadrIvalent,injectable, prese rvative free 03/29/2020 03:50:00 PM EDT completed eCW1 ([facility]) influenza, recombinant, quadrIvalent,injectable, prese rvative free 03/29/2020 03:50:00 PM EDT completed eCW1 ([facility]) influenza, recombinant, quadrIvalent,injectable, prese rvative free 03/29/2020 03:50:00 PM EDT completed eCW1 ([facility]) influenza, recombinant, quadrIvalent,injectable, prese rvative free 03/29/2020 03:50:00 PM EDT completed eCW1 ([facility]) influenza, recombinant, quadrIvalent,injectable, prese rvative free 03/29/2020 03:50:00 PM EDT completed eCW1 ([facility]) influenza, recombinant, quadrIvalent,injectable, prese rvative free 03/29/2020 03:50:00 PM EDT completed eCW1 ([facility]) influenza, recombinant, quadrIvalent,injectable, prese rvative free 03/29/2020 03:50:00 PM EDT completed eCW1 ([facility]) Medications Medication Brand Name Start Date Product Form Dose Route Admi nistrative Instructions Pharmacy Instructions Status Indications Reaction Description Data Source(s) Nebulizer/Tubing/Mouthpiece UNK 10/08/2020 12:00:00 AM EDT active Nebulizer/Tubing/Mouthpiece eCW1 ([facility]) Nebulizer/Tubing/Mouthpiece UNK 10/08/2020 12:00:00 AM EDT active Nebulizer/Tubing/Mouthpiece eCW1 ([facility]) Nebulizer/Tubing/Mouthpiece UNK 10/08/2020 12:00:00 AM EDT active Nebulizer/Tubing/Mouthpiece eCW1 ([facility]) Albuterol 0.833 MG/ML / Ipratropium Brom jose 0.167 MG/ML Inhalant Solution ipratropium-albuterol (DUO-NEB) 0.5-2.5 mg/mL nebulizer ipratropium-albuterol (DUO-NEB) 0.5-2.5 mg/mL nebulizer 09/25/2020 12:00:00 AM EDT active INHALE 3 ML VIA NEBULIZER FOUR TIMES A DAY NEEDED [facility] Metoprolol Tartrate 25 MG Oral Tablet me toprolol tartrate (LOPRESSOR) 25 MG tablet metoprolol tartrate (LOPRESSOR) 25 MG tablet 09/07/2020 12:0 0:00 AM EDT 12.5 mg Oral active Take 0.5 tablets (12.5 mg total) by mouth 3 (three) times a day [facility] Warfarin Sodium 5 MG Oral Tablet warfarin (COUMADIN) 5 MG tablet warfarin (COUMADIN) 5 MG tablet 09/07/2020 12:00:00 AM EDT active Bicuspid aortic valve One to three tabs daily as directed by c ardiologist [facility] Bicuspid aortic valve Prednisone 20 MG Oral Tablet PredniSONE 20 MG PredniSONE 20 MG 08/31/2020 12:00:00 AM EDT 1.0 {tablet} active Pr edniSONE 20 MG eCW1 ([facility]) doxycycline hyclate 100 MG Oral Capsule Doxycycline Hy clate 100 MG Doxycycline Hyclate 100 MG 08/31/2020 12:00:00 AM EDT 1.0 {capsule} suspended Doxycycline Hyclate 100 MG eCW1 ([facility]) doxycycline hyclate 100 MG Oral Capsule Doxycycline Hy clate 100 MG Doxycycline Hyclate 100 MG 08/31/2020 12:00:00 AM EDT 1.0 {capsule} active Doxycycline Hyclate 100 MG eCW1 ([facility]) doxycycline hyclate 100 MG Oral Capsule Doxycycline Hy clate 100 MG Doxycycline Hyclate 100 MG 08/31/2020 12:00:00 AM EDT 1.0 {capsule} suspended Doxycycline Hyclate 100 MG eCW1 ([facility]) Prednisone 20 MG Oral Tablet PredniSONE 20 MG PredniSONE 20 MG 08/31/2020 12:00:00 AM EDT 1.0 {tablet} active Pr edniSONE 20 MG eCW1 ([facility]) Prednisone 20 MG Oral Tablet predniSONE 20 MG predniSONE 20 MG 08/31/2020 12:00:00 AM EDT 1.0 {tablet} suspended predniSONE 20 MG eCW1 ([facility]) doxycycline hyclate 100 MG Oral Capsule Doxycycline Hy clate 100 MG Doxycycline Hyclate 100 MG 08/31/2020 12:00:00 AM EDT 1.0 {capsule} active Doxycycline Hyclate 100 MG eCW1 ([facility]) doxycycline hyclate 100 MG Oral Capsule Doxycycline Hy clate 100 MG Doxycycline Hyclate 100 MG 08/31/2020 12:00:00 AM EDT 1.0 {capsule} active Doxycycline Hyclate 100 MG eCW1 ([facility]) doxycycline hyclate 100 MG Oral Capsule Doxycycline Hy clate 100 MG Doxycycline Hyclate 100 MG 08/31/2020 12:00:00 AM EDT 1.0 {capsule} active Doxycycline Hyclate 100 MG eCW1 ([facility]) doxycycline hyclate 100 MG Oral Capsule Doxycycline Hy clate 100 MG Doxycycline Hyclate 100 MG 08/31/2020 12:00:00 AM EDT 1.0 {capsule} suspended Doxycycline Hyclate 100 MG eCW1 ([facility]) Prednisone 20 MG Oral Tablet PredniSONE 20 MG PredniSONE 20 MG 08/31/2020 12:00:00 AM EDT 1.0 {tablet} active Pr edniSONE 20 MG eCW1 ([facility]) Prednisone 20 MG Oral Tablet PredniSONE 20 MG PredniSONE 20 MG 08/31/2020 12:00:00 AM EDT 1.0 {tablet} active Pr edniSONE 20 MG eCW1 ([facility]) doxycycline hyclate 100 MG Oral Capsule Doxycycline Hy clate 100 MG Doxycycline Hyclate 100 MG 08/31/2020 12:00:00 AM EDT 1.0 {capsule} active Doxycycline Hyclate 100 MG eCW1 ([facility]) Prednisone 20 MG Oral Tablet PredniSONE 20 MG PredniSONE 20 MG 08/31/2020 12:00:00 AM EDT 1.0 {tablet} active Pr edniSONE 20 MG eCW1 ([facility]) Prednisone 20 MG Oral Tablet PredniSONE 20 MG PredniSONE 20 MG 08/31/2020 12:00:00 AM EDT 1.0 {tablet} active Pr edniSONE 20 MG eCW1 ([facility]) Prednisone 20 MG Oral Tablet PredniSONE 20 MG PredniSONE 20 MG 08/31/2020 12:00:00 AM EDT 1.0 {tablet} suspended PredniSONE 20 MG eCW1 ([facility]) Prednisone 20 MG Oral Tablet PredniSONE 20 MG PredniSONE 20 MG 08/31/2020 12:00:00 AM EDT 1.0 {tablet} suspended PredniSONE 20 MG eCW1 ([facility]) doxycycline hyclate 100 MG Oral Capsule Doxycycline Hy clate 100 MG Doxycycline Hyclate 100 MG 08/31/2020 12:00:00 AM EDT 1.0 {capsule} active Doxycycline Hyclate 100 MG eCW1 ([facility]) Omeprazole 20 MG Delayed Release Oral Ca psule omeprazole (PRILOSEC) 20 MG capsule omeprazole (PRILOSEC) 20 MG capsule 05/31/2020 12:00:00 AM EST aborted TAKE ONE CAPSULE BY MOUTH TW ICE A DAY [facility] Warfarin Sodium 5 MG Oral Tablet warfarin (COUMADIN) 5 MG tablet warfarin (COUMADIN) 5 MG tablet 03/30/2020 12:00:00 AM EDT active Bicuspid aortic valve Use as directed by [facility] Physicia n's - cardiology [facility] Bicuspid aortic valve Furosemide 40 MG Oral Tablet furosemide (LASIX) 40 MG tablet furosemide (LASIX) 40 MG tablet 03/30/2020 12:00:00 AM EDT 20 mg Oral activ e Take 0.5 tablets (20 mg total) by mouth as needed [facility] Metoprolol Tartrate 25 MG Oral Tablet me toprolol tartrate (LOPRESSOR) 25 MG tablet metoprolol tartrate (LOPRESSOR) 25 MG tablet 03/30/2020 12:0 0:00 AM EDT 12.5 mg Oral active Take 0.5 tablets (12.5 mg total) by mouth 3 (three) times a day [facility] cetirizine hydrochloride 10 MG Oral Tablet cetirizine (ZYRTEC) 10 MG tablet cetirizine (ZYRTEC) 10 MG tablet 03/30/2020 12:00:00 AM EDT 10 mg Oral active Take 10 mg by mouth daily [facility] montelukast 10 MG Oral Tablet montelukast (SINGULAIR) 10 MG tablet montelukast (SINGULAIR) 10 MG tablet 03/30/2020 12:00:00 AM EDT 10 mg Oral active Take 10 mg by mouth [facility] cetirizine hydrochloride 10 MG Oral Tablet [Zyrtec] Zy rtec Allergy 10 MG Zyrtec Allergy 10 MG 03/29/2020 12:00:00 AM EDT 1.0 {tablet} active Zyrtec Allergy 10 MG eCW1 ([facility]) cetirizine hydrochloride 10 MG Oral Tablet [Zyrtec] Zy rtec Allergy 10 MG Zyrtec Allergy 10 MG 03/29/2020 12:00:00 AM EDT 1.0 {tablet} active Zyrtec Allergy 10 MG eCW1 ([facility]) cetirizine hydrochloride 10 MG Oral Tablet [Zyrtec] Zy rtec Allergy 10 MG Zyrtec Allergy 10 MG 03/29/2020 12:00:00 AM EDT 1.0 {tablet} active Zyrtec Allergy 10 MG eCW1 ([facility]) cetirizine hydrochloride 10 MG Oral Tablet [Zyrtec] Zy rtec Allergy 10 MG Zyrtec Allergy 10 MG 03/29/2020 12:00:00 AM EDT 1.0 {tablet} active Zyrtec Allergy 10 MG eCW1 ([facility]) cetirizine hydrochloride 10 MG Oral Tablet [Zyrtec] Zy rtec Allergy 10 MG Zyrtec Allergy 10 MG 03/29/2020 12:00:00 AM EDT 1.0 {tablet} active Zyrtec Allergy 10 MG eCW1 ([facility]) cetirizine hydrochloride 10 MG Oral Tablet [Zyrtec] Zy rtec Allergy 10 MG Zyrtec Allergy 10 MG 03/29/2020 12:00:00 AM EDT 1.0 {tablet} active Zyrtec Allergy 10 MG eCW1 ([facility]) cetirizine hydrochloride 10 MG Oral Tablet [Zyrtec] Zy rtec Allergy 10 MG Zyrtec Allergy 10 MG 03/29/2020 12:00:00 AM EDT 1.0 {tablet} active Zyrtec Allergy 10 MG eCW1 ([facility]) cetirizine hydrochloride 10 MG Oral Tablet [Zyrtec] Zy rtec Allergy 10 MG Zyrtec Allergy 10 MG 03/29/2020 12:00:00 AM EDT 1.0 {tablet} active Zyrtec Allergy 10 MG eCW1 ([facility]) cetirizine hydrochloride 10 MG Oral Tablet [Zyrtec] Zy rTEC Allergy 10 MG ZyrTEC Allergy 10 MG 03/29/2020 12:00:00 AM EDT 1.0 {tablet} active ZyrTEC Allergy 10 MG eCW1 ([facility]) cetirizine hydrochloride 10 MG Oral Tablet [Zyrtec] Zy rtec Allergy 10 MG Zyrtec Allergy 10 MG 03/29/2020 12:00:00 AM EDT 1.0 {tablet} active Zyrtec Allergy 10 MG eCW1 ([facility]) cetirizine hydrochloride 10 MG Oral Tablet [Zyrtec] Zy rtec Allergy 10 MG Zyrtec Allergy 10 MG 03/29/2020 12:00:00 AM EDT 1.0 {tablet} active Zyrtec Allergy 10 MG eCW1 ([facility]) Sertraline 100 MG Oral Tablet sertraline (ZOLOFT) 100 MG tablet sertraline (ZOLOFT) 100 MG tablet 10/13/2019 12:00:00 AM EDT 100 mg Oral aborted Take 100 mg by mouth daily [facility] gabapentin 300 MG Oral Capsule gabapentin (NEURONTIN) 300 MG capsule gabapentin (NEURONTIN) 300 MG capsule 10/03/2019 12:00:00 AM EDT 1 {capsule} Oral aborted Take 1 capsule by mouth 2 (two) times a day [facility] 12 HR Bupropion Hydrochloride 150 MG Ext ended Release Oral Tablet buPROPion (WELLBUTRIN SR) 150 MG 12 hr tablet buPROPion (WELLBUTRIN SR) 150 MG 12 hr tablet 09/29/2019 12:00:00 AM EDT 150 mg Oral aborted Take 150 mg by mouth 2 (two) times a day [facility] fluticasone (FLONASE) 50 MCG/ACT nasal spray [id number] 01/10/2015 12:00:00 AM EDT aborted as needed [facility] Insurance Providers Payer name Policy type / Coverage type Policy ID Covered libertarian ID Covered libertarian's relationship to mckeon Policy Mckeon Plan Information [employer] R[place] PPO 302/[id number] SP [id number] UN COMMUNITY PLAN MCDO [id number] SP [id number] MEDICAID [id number] BLUE CROSS [place] PLAN [id number] SP [id number] [facility] Community Plan Commercial [id number] Self [facility] MEDICAID [id number] xxxxxxxxx [id number] 1 [facility] MEDICAID [id number] Cristiane [id number] 51 [facility] Chary/M[employer] Health Maintenance Organization (HMO) [id number] Self [id number] [facility] [employer] Medigap Part B [id number] [facility] [facility] Health Maintenance Organization (HMO) [id number] Self [id number] [facility] COMMUNITY PLAN MCDHMO [id number] SP [id number] ANSI-Medicaid [id number] ANSI-Medicaid [id number] ANSI-Medicaid [id number] Blue Option/Medicaid Health Maintenance Organization (HMO) V [id number] Self [id number] Medicaid [place] Medicaid [id number] Self [id number] Hmo Blue Option/Medicaid Health Maintenance Organization (HMO) V [id number] Self [id number] Medicaid [place] [id number] Self [id number] Hmo Blue Option/Medicaid Health Maintenance Organization (HMO) V [id number] Self [id number] BLUE CROSS BLUE SHIELD-O/P [id number] 18 [id number] BLUE CROSS BLUE SHIELD-CLINIC [id number] 18 [id number] [employer] P [id number] S [id number] [id number] [place] [id number] SP [id number] UNHC COMMUNITY PLAN MCDHMO [id number] SP [id number] UNHC COMMUNITY PLAN MCDHMO [id number] SP [id number] [place] [id number] SP [id number] MEDICAID M [id number] S [id number] [facility] O [id number] S [id number] MEDICAID [id number] SP [id number] ANSI-Medicaid [id number] ANSI-Medicaid [id number] ANSI-Medicaid [id number] ANSI-Medicaid [id number] ANSI-Medicaid [id number] Problems, Conditions, and Diagnoses Code Display Name Description Problem Type Effective Dates Data Source(s) I48.91 Unspecified atrial fibrillation Unspecified atri al fibrillation Diagnosis 03/07/2021 02:06:36 PM EDT [facility] I48.0 Paroxysmal atrial fibrillation Paroxysmal atrial fibri llation Diagnosis 11/28/2020 02:54:28 PM EDT [facility] E78.2 Mixed hyperlipidemia Mixed hyperlipidemia Diagnosis 04/13/2020 12:58:05 PM EST [facility] F17.200 Nicotine dependence, unspecified, uncomp licated Nicotine dependence, unspecified, uncomp Diagnosis 04/13/2020 12:58:05 PM [facility] R06.02 Shortness of breath Shortness of breath Diagnosis 1 06/13/2019 12:58:05 PM [facility] Z95.2 Presence of prosthetic heart valve Presence of p rosthetic heart valve Diagnosis 04/13/2020 12:58:05 PM EST [facility] R07.9 Chest pain, unspecified Chest pain, unspecified Diagno sis 04/13/2020 12:58:05 PM [facility] 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 Paroxysmal atrial fibrillation POCT AMB EKG <td>POCT AMB EKG</td><td>Ghada mendoza</td><td>04/13/2020 2:01 PM EST</td><td> Atrial fibrillation</td><td> </td> 04/13/2020 07:01:00 PM EST Atrial fibrillation [facility] Atrial fibrillation Immunization: Flublok Quadrivalent (18 years & older) 0.5mL IM (Influenza) 03/29/2020 12:00:00 AM EDT eCW1 ([facility]) Results ID Date Data Source [id number] 08/31/2020 03:01:00 PM EDT [facility] Name Value Range Interpretation Code Description Data Raquel rce(s) Supporting Document(s) SARS COVID ANTIGEN NEGATIVE [facility] This lab [place] [facility] [place] reported by [facility]. ID Date Data Source NOBLE COVID AG (Point of Care) 08/31/2020 12:00:00 AM EDT eC W1 ([facility]) Name Value Range Interpretation Code Description Data Raquel rce(s) Supporting Document(s) NEGATIVE NEGATIVE [place] COVID ANTIGEN eCW1 ([facility]) ID Date Data Source [id number] 05/09/2020 12:38:37 PM EST [facility] Name Value Range Interpretation Code Description Data Raquel rce(s) Supporting Document(s) &PDF [facility] XTTBZc1eCeQNJfDy92/DKWdhZAHiz0OnVWtsKYl7MBhsXOAxS0WkrIeuXCHMFKeYPNvvRZCSM2EQHZUr hdG [file] AgICAgICAgICAgICAgICAgICAgICAgICAgICAgICAg ICAgICAgICAgICAgICAgICAgICAgDQogICAgICAgICAgICAgICAgICAgICAgICAgICAgICAgICAgICAg ICAgICAgICAgICAgICAgICAgICAgICAgICAgICAgICAgICAgICAgICAgICAgICAgICAgICAgICAgICAg ICAgDQogICAgICAgICAgICAgICAgICAgICAgICAgIC AgICAgICAgICAgICAgICAgICAgICAgICAgICAgICAgICAgICAgICAgICAgICAgICAgICAgICAgICAgIC AgICAgICAgICAgICAgDQogICAgICAgICAgICAgICAgICAgICAgICAgICAgICAgICAgICAgICAgICAgIC AgICAgICAgICAgICAgICAgICAgICAgICAgICAgICAg ICAgICAgICAgICAgICAgICAgICAgICAgDQogICAgICAgICAgICAgICAgICAgICAgICAgICAgICAgICAg ICAgICAgICAgICAgICAgICAgICAgICAgICAgICAgICAgICAgICAgICAgICAgICAgICAgICAgICAgICAg ICAgICAgDQogICAgICAgICAgICAgICAgICAgICAgIC AgICAgICAgICAgICAgICAgICAgICAgICAgICAgICAgICAgICAgICAgICAgICAgICAgICAgICAgICAgIC AgICAgICAgICAgICAgICAgDQogICAgICAgICAgICAgICAgICAgICAgICAgICAgICAgICAgICAgICAgIC AgICAgICAgICAgICAgICAgICAgICAgICAgICAgICAg ICAgICAgICAgICAgICAgICAgICAgICAgICAgDQogICAgICAgICAgICAgICAgICAgICAgICAgICAgICAg ICAgICAgICAgICAgICAgICAgICAgICAgICAgICAgICAgICAgICAgICAgICAgICAgICAgICAgICAgICAg ICAgICAgICAgDQogICAgICAgICAgICAgICAgICAgIC AgICAgICAgICAgICAgICAgICAgICAgICAgICAgICAgICAgICAgICAgICAgICAgICAgICAgICAgICAgIC AgICAgICAgICAgICAgICAgICAgDQogICAgICAgICAgICAgICAgICAgICAgICAgICAgICAgICAgICAgIC AgICAgICAgICAgICAgICAgICAgICAgICAgICAgICAg BOAzBBXuPBGeFAViHWDpWEUgMFLqAVXeTIXtRCNaOAp3C0ojLYUpWDUsYV3tCLd2Cv9+DQoNCmVuZHN0 vwFrtN3XAJ2ew1IbIQatRHDgg3DuMQs9WG9NOJBxBTwtSK7FQSldpe2IQQCcUFBjdTMPu1wvZyGyMMV4 XLWkVaclKE8YYBJzJ0jzqpLkXZApBGTALPhvVZDFMP 8UGnYsJ5HbxT29URCFCr6+JJtwpuZzZrzOWcRsKGBdz1VlEYx1DM1FSADqICakOH4GCFXquG6oPDvjHE 4KEfDuTIUaCEBZOpIhC69gxVIbFWg7J6PoRfPoYTUcMmdzZHKvMHdaEbNzXFBgXiVbSNhrEH8+ID4+DQ grWE1MOVvppbYvZYTeDf0KNAVoKSS2NLDqjRPnBpGq ZLVNCTthYB2EkLIcOMU2dF0uRRhjTPRxLIFaU6sXGeSxqLveZR24sImxjyEwdZBzRTd+Es1IBZ1jy8Ss EDd2qzCuRCuhRINoVZeiBPWdMFSfQZMyAEU4XSC3AGFFAyAfYQCpXYFqMCpsEACcINNwbj2GQCWjRDLt KQlxUSFkXLTqFCOtDHluKZJpEKPlZgi7YZGxRQGpLO 3BQyRwDICzZCPdSUOqFIKiJJLszz3RKLVwJZWoUyZ0OgIhVZUaKKRoUSwaNNHnYIMlWgb0QGMsLGHiTQ 3OHrYfAJTaVAP4HoOzJKNfOLLzlr1UUWXwXJBtCxA6OCXaZLJnPNKqJXyaLHHmWUW9JQK6KYRpDNMpSI 9WCrMnOSBfFZioCoVlIIKtNQOntn2JCVBgEERqUnMj KPTcBZSnMZSdYHsjNFWbYBC5KIXtXADmXXXpTV2BXfKjLATbAKn3AkUyMJMeBAVzjr6CRUJcNGPqPNk1 YjTqTPYsDWQuSQctXUYeKPN8QZUzUKCkDOLcCF2SDpSbUNPnKORuZCEtRBHuNYDagx4NTMGsJDKeRUV1 XlRfEVMgHFOvDQqmRGFvVYM9UZh2NQTtPOHzOT5FYw ViXAFjRJr1DXppWROnVTGajx6NZLIsEFFaJOZpMXMtRMGhMTNtEEdvUEKbSTMlNbqfQZAqWBEoEW0QHo AvDNcvCEXEMjk8VTbxY2j7DVVyXk7BF5Jux3JqIuOyYJTAENtpZQ8utbShALKmGj9MA3mVMawkNTT3DR HvOOX4MVfiIEGeGHqsE5T7UGPmNOU9FJSrTb8yMUGe XWe2KMAcZVnnHUBeWhE0GHQvRSK0NzHtYBX9WxK7KkXnFH2AXu8RGoN4PZQ1gBYcBa4BXnB1NwcZRgPt XS9HUPz= Procedure Social History Code Duration Value Status Description Data Source(s ) Alcohol intake 11/28/2020 12:00:00 AM EDT Current non-d usman of alcohol (finding) completed Current non-drinker of alcohol (finding) [facility] Smoking 10/08/2020 12:00:00 AM EDT Current Smoker completed Curre nt Smoker eCW1 ([facility]) Smoking 10/08/2020 12:00:00 AM EDT Current Smoker completed Curre nt Smoker eCW1 ([facility]) Smoking 10/08/2020 12:00:00 AM EDT Current Smoker completed Curre nt Smoker eCW1 ([facility]) Smoking 08/31/2020 12:00:00 AM EDT Current Smoker completed Curre nt Smoker eCW1 ([facility]) Smoking 08/31/2020 12:00:00 AM EDT Current Smoker completed Curre nt Smoker eCW1 ([facility]) Smoking 08/31/2020 12:00:00 AM EDT Current Smoker completed Curre nt Smoker eCW1 ([facility]) Smoking 08/31/2020 12:00:00 AM EDT Current Smoker completed Curre nt Smoker eCW1 ([facility]) Smoking 08/31/2020 12:00:00 AM EDT Current Smoker completed Curre nt Smoker eCW1 ([facility]) Smoking 08/31/2020 12:00:00 AM EDT Current Smoker completed Curre nt Smoker eCW1 ([facility]) Alcohol intake 04/13/2020 12:00:00 AM EST No completed [facility] Cigarette pack-years 04/13/2020 12:00:00 AM EST UNK completed [facility] Cigarettes smoked current (pack per day) - Reported 04/13/20 12:00:00 AM EST UNK completed [facility] Smoking 04/13/2020 12:00:00 AM EST Current every day smoker co mpleted Current every day smoker [facility] Smoking 03/29/2020 12:00:00 AM EDT Current Smoker completed Curre nt Smoker eCW1 ([facility]) Smoking 03/29/2020 12:00:00 AM EDT Current Smoker completed Curre nt Smoker eCW1 ([facility]) Vital Signs ID Date Data Source UNK Name Value Range Interpretation Code Description Data Source(s) Systolic blood pressure 138 mm[Hg] 138 mm[Hg] [facility] Diastolic blood pressure 90 mm[Hg] 90 mm[Hg] [facility] Heart rate 75 /min 75 /min [facility] Body height 170.2 cm 170.2 cm [facility] Body weight 84.823 kg 84.823 kg [facility] Body mass index (BMI) [Ratio] 29.29 kg/m2 29.29 kg/m2 [facility] Oxygen saturation in Arterial blood by Pulse oximetry 98 % 98 % [facility] Body weight 186 [lb_av] 186 [lb_av] W1 ([facility]) Body height 66 [in_i] 66 [in_i] W1 ([facility]) Body mass index (BMI) [Ratio] 30.02 kg/m2 30.02 kg/m2 eCW1 ([facility]) Heart rate 72 /min 72 /min eCW1 [facility] Respiratory rate 18 /min 18 /min eCW1 ([facility]) Body temperature 97.8 [degF] 97.8 [degF] eCW1 ( [facility]) Systolic blood pressure 123 mm[Hg] 123 mm[Hg] e CW1 ([facility]) Diastolic blood pressure 77 mm[Hg] 77 mm[Hg] eCW1 ([facility]) Body weight 185.6 [lb_av] 185.6 [lb_av] eCW1 ([facility]) Body height 66 [in_i] 66 [in_i] eCW1 ([facility]) Body mass index (BMI) [Ratio] 29.95 kg/m2 29.95 kg/m2 eCW1 ([facility]) Heart rate 76 /min 76 /min eCW1 ([facility] Respiratory rate 20 /min 20 /min eCW1 ([facility]) Body temperature 97.7 [degF] 97.7 [degF] eCW1 ( [facility]) Systolic blood pressure 137 mm[Hg] 137 mm[Hg] e CW1 ([facility]) Diastolic blood pressure 85 mm[Hg] 85 mm[Hg] eCW1 ([facility]) Systolic blood pressure 130 mm[Hg] 130 mm[Hg] [facility] Diastolic blood pressure 82 mm[Hg] 82 mm[Hg] [facility] Heart rate 59 /min 59 /min [facility] Body weight 82.555 kg 82.555 kg [facility] Body mass index (BMI) [Ratio] 27.67 kg/m2 27.67 kg/m2 [facility] Oxygen saturation in Arterial blood by Pulse oximetry 96 % 96 % [facility] Body weight 180 [lb_av] 180 [lb_av] W1 ([facility]) Body height 66 [in_i] 66 [in_i] eCW1 ([facility]) Body mass index (BMI) [Ratio] 29.05 kg/m2 29.05 kg/m2 W1 ([facility]) Heart rate 85 /min 85 /min eCW1 ([facility] Respiratory rate 18 /min 18 /min eCW1 ([facility]) Body temperature 97.8 [degF] 97.8 [degF] eCW1 ( [facility]) Systolic blood pressure 148 mm[Hg] 148 mm[Hg] e CW1 ([facility]) Diastolic blood pressure 97 mm[Hg] 97 mm[Hg] eCW1 ([facility]) Patient Treatment Plan of Care Planned Activity Planned Date Details Description Data Source (s) Nebulizer/Tubing/Mouthpiece 10/08/2020 12:00:00 AM EDT eCW1 ([facility]) Nebulizer/Tubing/Mouthpiece 10/08/2020 12:00:00 AM EDT eCW1 ([facility]) Nebulizer/Tubing/Mouthpiece 10/08/2020 12:00:00 AM EDT eCW1 ([facility]) Albuterol 0.833 MG/ML / Ipratropium [place] 0.167 MG/M L Inhalant Solution 09/25/2020 12:00:00 AM EDT [facility] Metoprolol Tartrate 25 MG Oral Tablet 09/07/2020 12:00:00 AM EDT [facility] Warfarin Sodium 5 MG Oral Tablet 09/07/2020 12:00:00 AM EDT [facility] Prednisone 20 MG Oral Tablet 08/31/2020 12:00:00 AM EDT eCW1 ([facility]) doxycycline hyclate 100 MG Oral Capsule 08/31/2020 12:00:00 AM EDT eCW1 ([facility]) Prednisone 20 MG Oral Tablet 08/31/2020 12:00:00 AM EDT eCW1 ([facility]) doxycycline hyclate 100 MG Oral Capsule 08/31/2020 12:00:00 AM EDT eCW1 ([facility]) Prednisone 20 MG Oral Tablet 08/31/2020 12:00:00 AM EDT eCW1 ([facility]) doxycycline hyclate 100 MG Oral Capsule 08/31/2020 12:00:00 AM EDT eCW1 ([facility]) Prednisone 20 MG Oral Tablet 08/31/2020 12:00:00 AM EDT eCW1 ([facility]) doxycycline hyclate 100 MG Oral Capsule 08/31/2020 12:00:00 AM EDT eCW1 ([facility]) Prednisone 20 MG Oral Tablet 08/31/2020 12:00:00 AM EDT eCW1 ([facility]) doxycycline hyclate 100 MG Oral Capsule 08/31/2020 12:00:00 AM EDT eCW1 ([facility]) Prednisone 20 MG Oral Tablet 08/31/2020 12:00:00 AM EDT eCW1 ([facility]) doxycycline hyclate 100 MG Oral Capsule 08/31/2020 12:00:00 AM EDT eCW1 ([facility]) Omeprazole 20 MG Delayed Release Oral Capsule 05/31/2020 12:00:00 A M EST [facility] montelukast 10 MG Oral Tablet 03/30/2020 12:00:00 AM EDT [facility] cetirizine hydrochloride 10 MG Oral Tablet 03/30/2020 12:00:00 AM E DT [facility] Furosemide 40 MG Oral Tablet 03/30/2020 12:00:00 AM EDT [facility] Metoprolol Tartrate 25 MG Oral Tablet 03/30/2020 12:00:00 AM EDT [facility] Warfarin Sodium 5 MG Oral Tablet 03/30/2020 12:00:00 AM EDT [facility] cetirizine hydrochloride 10 MG Oral Tablet [Zyrtec] 03/29/20 12:00:00 AM EDT eCW1 ([facility]) cetirizine hydrochloride 10 MG Oral Tablet [Zyrtec] 03/29/20 12:00:00 AM EDT eCW1 ([facility]) cetirizine hydrochloride 10 MG Oral Tablet [Zyrtec] 03/29/20 12:00:00 AM EDT eCW1 ([facility]) cetirizine hydrochloride 10 MG Oral Tablet [Zyrtec] 03/29/20 12:00:00 AM EDT eCW1 ([facility]) cetirizine hydrochloride 10 MG Oral Tablet [Zyrtec] 03/29/20 12:00:00 AM EDT eCW1 ([facility]) Sertraline 100 MG Oral Tablet 10/13/2019 12:00:00 AM EDT [facility] gabapentin 300 MG Oral Capsule 10/03/2019 12:00:00 AM EDT [facility] 12 HR Bupropion Hydrochloride 150 MG Extended Release Oral Tablet 09/29/2019 12:00:00 AM EDT [facility] fluticasone (FLONASE) 50 MCG/ACT nasal spray 01/10/2015 12:00:00 AM EDT [facility]
[2021-05-02 00:54] VITALS: BP 133/89
--- OUTSIDE RECORDS SUMMARY | 2021-05-02 01:42 | CCD ---
Author Author [facility] Organization [facility] Address Unknown Phone Unavailable Care Team Providers Care Cylindrical Mixer Name Role Phone Nimisha Loaiza Unavailable Unavailable [...] L Mere PA Unavailable Unavailable Loaiza, L Emre PA Unavailable Unavailable Loaiza, L Mere PA [...] Unavailable Alberto, V YANY PA-C Unavailable Unavailable Webster, V YANY PA-C Unavailable Unavailable Alberto, V YANY PA-C Unavailable Unavailable Alberto, V YANY PA-C Unavailable Unavailable Alberto, V YANY PA-C Unavailable Unavailable Webster, V YANY PA-C Unavailable Unavailable Alberto, V YANY PA-C Unavailable Unavailable Webster, V YANY PA-C Unavailable Unavailable Alberto, V YANY PA-C Unavailable Unavailable Alberto, V YANY PA-C Unavailable Unavailable Alberto, V YANY PA-C Unavailable Unavailable Webster, V YANY PA-C Unavailable Unavailable Alberto, V YANY PA-C Unavailable Unavailable Webster, V YANY PA-C Unavailable Unavailable Norberto Michael [...] is protected by Article 27-F of the [facility] Public Health law. If you continue you may have access to information: Regarding HIV / AIDS; Provided by facilities licensed or operated by the [facility] Office of Mental Health; or Provided by the [facility] Office for People With Developmental Disabilities. If such information is present, then the following [facility] mandated warning applies: This information has [...] law may result in a fine or [place] health care facility sentence or both. A general authorization for the release of medical or other information is NOT sufficient authorization for further disc losure. Family History Family Member Name Family Member Gender Family Member Status Date o f Status Description Data Source(s) Unknown Unknown Problem [facility] Unknown Female Problem [facility]ENT ([facility]) Unknown Female Problem MEDENT ([facility]) Unknown Female Problem MEDENT ([facility]) Encounters Encounter Providers Location Date Indications Data Source(s ) Outpatient [facility] 04/25/2021 12:00:00 AM EST [facility] Outpatient [facility] 04/04/2021 12:00:00 AM EDT [facility] Outpatient [facility] 03/21/2021 12:00 :00 AM EDT - 03/21/2021 02:48:55 PM EDT [facility] Outpatient Attender: Norberto RAMIRES-SJP.[facility]OR 02/08 12:00:00 AM EDT - 03/07/2021 02:41:51 PM EDT [facility] Outpatient [facility] 02/28/2021 12:00 :00 AM EDT - 02/28/2021 02:54:28 PM EDT [facility] Unknown [address] [facility], [facility] [address] 02/25/2021 12:00:00 AM EDT eC ([facility]) Outpatient SJP.[facility] 02/21/2021 12:00 :00 AM EDT - 02/21/2021 02:36:54 PM EDT [facility] Outpatient [facility] 02/14/2021 12:00:00 AM EDT [facility] Outpatient [facility] 01/31/2021 12:00:00 AM EDT [facility] Outpatient [facility] 01/24/2021 12:00:00 AM EDT [facility] Outpatient [facility] 01/17/2021 02:27 :44 PM EDT - 01/17/2021 02:59:55 PM EDT [facility] Outpatient [facility] 01/10/2021 12:00:00 AM EDT [facility] Outpatient [facility] 01/03/2021 12:00:00 AM EDT [facility] Outpatient [facility] 12/28/2020 12:00:00 AM EDT [facility] Outpatient [facility] 12/21/2020 12:59:58 PM EDT [facility] Outpatient [facility] 12/06/2020 12:00:00 AM EDT [facility] Outpatient Attender: YANY Dominguez PA-C [facility] 12:00:00 AM EDT - 11/28/2020 03:57:41 PM EDT [facility] Outpatient [facility] 11/28/2020 12:00:00 AM EDT [facility] Outpatient [facility] 11/02/2020 12:00:00 AM EDT [facility] Outpatient [facility] 10/19/2020 01:47:12 PM EDT [facility] Outpatient [facility] 10/12/2020 12:00:00 AM EDT [facility] Unknown [address] [facility] [address] 10/09/2020 12:00:00 AM EDT eCW1 ([facility]) Outpatient [address] [facility] [address] 10/08/2020 12:00:00 AM EDT eCW1 ([facility]) Unknown [address] [facility] [address] 10/02/2020 12:00:00 AM EDT eCW1 ([facility]) Unknown [address] [facility] [address] 10/02/2020 12:00:00 AM EDT eCW1 ([facility]) Outpatient SJP.SAL[facility]ADOR-TUCKERP.SALVADOR 09/28/2020 12:00:00 AM EDT [facility] Unknown [address] [facility] [address] 09/24/2020 12:00:00 AM EDT eCW1 ([facility]) Outpatient SJP.[facility]AD[facility]-TUCKERP.[facility] 09/20/2020 01:07:42 PM EDT [facility] Unknown [address] [facility] [address] 09/18/2020 12:00:00 AM EDT eCW1 ([facility]) Outpatient SJP.S[facility]ADOR-SJP.[facility] 09/14/2020 01:21:35 PM EDT [facility] Outpatient SJP.[facility]-SJP.[facility] 09/07/2020 12:00:00 AM EDT [facility] Outpatient [address] [facility] [address] 08/31/2020 12:00:00 AM EDT eCW1 ([facility]) Unknown [address] [facility] [address] 08/31/2020 12:00:00 AM EDT eCW1 ([facility]) Outpatient SJP.S[facility]ADOR-SJP.SAL[facility]AD[facility] 08/03/2020 12:00:00 AM EST [facility] Outpatient SJP.[facility]-SJP.S[facility] 05/30/2020 12:00:48 PM EST [facility] Unknown [address] [facility] [address] 05/30/2020 12:00:00 AM EST eCW1 ([facility]) Outpatient SJP.SAL[facility]ADOR-SJP.SALVADOR 05/23/2020 01:15:51 PM EST [facility] Outpatient SJP.[facility]-SJP.[facility]AD[facility] 05/09/2020 12:00:00 AM EST [facility] Outpatient Referrer: Mere RAMIRES-DOMINIC.SALVADOR 07/2019 12:00:00 AM EST [facility] Outpatient Referrer: Mere RAMIRES-DOMINIC.SALVADOR 07/2019 12:00:00 AM EST [facility] Outpatient Attender: Mere AGUILAR.SALVADOR 11/2019 12:58:05 PM EST - 04/13/2020 02:04:08 PM EST [facility] Outpatient SJP.SALVADOR-SJP.ASLVADOR 04/13/2020 12:00:00 AM EST [facility] Outpatient SJP.[facility]-SJP.[facility] 04/02/2020 11:34 :39 AM EDT - 04/02/2020 12:35:26 PM EDT [facility] Outpatient [address] [facility] [address] 03/29/2020 12:00:00 AM EDT eCW1 ([facility]) Immunizations Vaccine Date Status Description Data Source(s) COVID-19 VACCINE Moderna 12/21/2020 12:00:00 AM EDT completed [facility] Vaccine Series Complete: YESThis Data wa s Submitted to [facility] [employer]. COVID-19 dose #1 given elsewhere Unspecified 08/10/2020 04:3 1:00 PM EST completed eCW1 ([facility]) COVID-19 dose #1 given elsewhere Unspecified 08/10/2020 04:3 1:00 PM EST completed eCW1 ([facility]) COVID-19 dose #1 given elsewhere Unspecified 08/10/2020 04:3 1:00 PM EST completed eCW1 ([facility]) COVID-19 VACCINE Moderna 08/10/2020 12:00:00 AM EST completed [facility] Vaccine Series Complete: NOThis Data was Submitted to [facility] [employer]. influenza, recombinant, quadrIvalent,injectable, prese rvative free 03/29/2020 03:50:00 PM EDT [facility] influenza, recombinant, quadrIvalent,injectable, prese rvative free 03/29/2020 03:50:00 PM EDT completed [facility]CW1 [facility]) influenza, recombinant, quadrIvalent,injectable, prese rvative free 03/29/2020 03:50:00 PM EDT completed eCW1 [facility]) influenza, recombinant, quadrIvalent,injectable, prese rvative free 03/29/2020 03:50:00 PM EDT completed eCW1 ([facility]) influenza, recombinant, quadrIvalent,injectable, prese rvative free 03/29/2020 03:50:00 PM EDT completed eCW1 ([facility]) influenza, recombinant, quadrIvalent,injectable, prese rvative free 03/29/2020 03:50:00 PM EDT completed eCW1 ([facility]) influenza, recombinant, quadrIvalent,injectable, prese rvative free 03/29/2020 03:50:00 PM EDT completed eCW1 ([facility]) influenza, recombinant, quadrIvalent,injectable, prese rvative free 03/29/2020 03:50:00 PM EDT completed eCW1 ([facility]) influenza, recombinant, quadrIvalent,injectable, prese rvative free 03/29/2020 03:50:00 PM EDT completed eCW1 ([facility]) influenza, recombinant, quadrIvalent,injectable, prese rvative free 03/29/2020 03:50:00 PM EDT completed eCW1 ([facility]) influenza, recombinant, quadrIvalent,injectable, prese rvative free 03/29/2020 03:50:00 PM EDT completed eCW1 ([facility]) Medications Medication Brand Name Start Date Product Form Dose Route Admi nistrative Instructions Pharmacy Instructions Status Indications Reaction Description Data Source(s) Nebulizer/Tubing/Mouthpiece UNK 10/08/2020 12:00:00 AM EDT active Nebulizer/Tubing/Mouthpiece eCW1 ([facility]) Nebulizer/Tubing/Mouthpiece UNK 10/08/2020 12:00:00 AM EDT active Nebulizer/Tubing/Mouthpiece eCW1 ([facility]) Nebulizer/Tubing/Mouthpiece UNK 10/08/2020 12:00:00 AM EDT active Nebulizer/Tubing/Mouthpiece eCW1 ([facility]) Albuterol 0.833 MG/ML / Ipratropium Brom jose 0.167 MG/ML Inhalant Solution ipratropium-albuterol (DUO-NEB) 0.5-2.5 mg/mL nebulizer ipratropium-albuterol (DUO-NEB) 0.5-2.5 mg/mL nebulizer 09/25/2020 12:00:00 AM EDT active INHALE 3 ML VIA NEBULIZER FOUR TIMES A DAY NEEDED [facility] Metoprolol Tartrate 25 MG Oral Tablet me toprolol tartrate (LOPRESSOR) 25 MG tablet metoprolol tartrate (LOPRESSOR) 25 MG tablet 09/07/2020 12:0 0:00 AM EDT 12.5 mg Oral active Take 0.5 tablets (12.5 mg total) by mouth 3 (three) times a day [facility] Warfarin Sodium 5 MG Oral Tablet warfarin (COUMADIN) 5 MG tablet warfarin (COUMADIN) 5 MG tablet 09/07/2020 12:00:00 AM EDT active Bicuspid aortic valve One to three tabs daily as directed by c ardiologist [facility] Bicuspid aortic valve Prednisone 20 MG Oral Tablet PredniSONE 20 MG PredniSONE 20 MG 08/31/2020 12:00:00 AM EDT 1.0 {tablet} active Pr edniSONE 20 MG eCW1 ([facility]) doxycycline hyclate 100 MG Oral Capsule Doxycycline Hy clate 100 MG Doxycycline Hyclate 100 MG 08/31/2020 12:00:00 AM EDT 1.0 {capsule} suspended Doxycycline Hyclate 100 MG eCW1 ([facility]) doxycycline hyclate 100 MG Oral Capsule Doxycycline Hy clate 100 MG Doxycycline Hyclate 100 MG 08/31/2020 12:00:00 AM EDT 1.0 {capsule} active Doxycycline Hyclate 100 MG eCW1 ([facility]) doxycycline hyclate 100 MG Oral Capsule Doxycycline Hy clate 100 MG Doxycycline Hyclate 100 MG 08/31/2020 12:00:00 AM EDT 1.0 {capsule} suspended Doxycycline Hyclate 100 MG eCW1 ([facility]) Prednisone 20 MG Oral Tablet PredniSONE 20 MG PredniSONE 20 MG 08/31/2020 12:00:00 AM EDT 1.0 {tablet} active Pr edniSONE 20 MG eCW1 ([facility]) Prednisone 20 MG Oral Tablet predniSONE 20 MG predniSONE 20 MG 08/31/2020 12:00:00 AM EDT 1.0 {tablet} suspended predniSONE 20 MG eCW1 ([facility]) doxycycline hyclate 100 MG Oral Capsule Doxycycline Hy clate 100 MG Doxycycline Hyclate 100 MG 08/31/2020 12:00:00 AM EDT 1.0 {capsule} active Doxycycline Hyclate 100 MG eCW1 ([facility]) doxycycline hyclate 100 MG Oral Capsule Doxycycline Hy clate 100 MG Doxycycline Hyclate 100 MG 08/31/2020 12:00:00 AM EDT 1.0 {capsule} active Doxycycline Hyclate 100 MG eCW1 ([facility]) doxycycline hyclate 100 MG Oral Capsule Doxycycline Hy clate 100 MG Doxycycline Hyclate 100 MG 08/31/2020 12:00:00 AM EDT 1.0 {capsule} active Doxycycline Hyclate 100 MG eCW1 ([facility]) doxycycline hyclate 100 MG Oral Capsule Doxycycline Hy clate 100 MG Doxycycline Hyclate 100 MG 08/31/2020 12:00:00 AM EDT 1.0 {capsule} suspended Doxycycline Hyclate 100 MG eCW1 ([facility]) Prednisone 20 MG Oral Tablet PredniSONE 20 MG PredniSONE 20 MG 08/31/2020 12:00:00 AM EDT 1.0 {tablet} active Pr edniSONE 20 MG eCW1 ([facility]) Prednisone 20 MG Oral Tablet PredniSONE 20 MG PredniSONE 20 MG 08/31/2020 12:00:00 AM EDT 1.0 {tablet} active Pr edniSONE 20 MG eCW1 ([facility]) doxycycline hyclate 100 MG Oral Capsule Doxycycline Hy clate 100 MG Doxycycline Hyclate 100 MG 08/31/2020 12:00:00 AM EDT 1.0 {capsule} active Doxycycline Hyclate 100 MG eCW1 ([facility]) Prednisone 20 MG Oral Tablet PredniSONE 20 MG PredniSONE 20 MG 08/31/2020 12:00:00 AM EDT 1.0 {tablet} active Pr edniSONE 20 MG eCW1 ([facility]) Prednisone 20 MG Oral Tablet PredniSONE 20 MG PredniSONE 20 MG 08/31/2020 12:00:00 AM EDT 1.0 {tablet} active Pr edniSONE 20 MG eCW1 ([facility]) Prednisone 20 MG Oral Tablet PredniSONE 20 MG PredniSONE 20 MG 08/31/2020 12:00:00 AM EDT 1.0 {tablet} suspended PredniSONE 20 MG eCW1 ([facility]) Prednisone 20 MG Oral Tablet PredniSONE 20 MG PredniSONE 20 MG 08/31/2020 12:00:00 AM EDT 1.0 {tablet} suspended PredniSONE 20 MG eCW1 ([facility]) doxycycline hyclate 100 MG Oral Capsule Doxycycline Hy clate 100 MG Doxycycline Hyclate 100 MG 08/31/2020 12:00:00 AM EDT 1.0 {capsule} active Doxycycline Hyclate 100 MG eCW1 ([facility]) Omeprazole 20 MG Delayed Release Oral Ca psule omeprazole (PRILOSEC) 20 MG capsule omeprazole (PRILOSEC) 20 MG capsule 05/31/2020 12:00:00 AM EST aborted TAKE ONE CAPSULE BY MOUTH TW ICE A DAY [facility] Warfarin Sodium 5 MG Oral Tablet warfarin (COUMADIN) 5 MG tablet warfarin (COUMADIN) 5 MG tablet 03/30/2020 12:00:00 AM EDT active Bicuspid aortic valve Use as directed by [facility] Physicia n's - cardiology [facility] Bicuspid aortic valve Furosemide 40 MG Oral Tablet furosemide (LASIX) 40 MG tablet furosemide (LASIX) 40 MG tablet 03/30/2020 12:00:00 AM EDT 20 mg Oral activ e Take 0.5 tablets (20 mg total) by mouth as needed [facility] Metoprolol Tartrate 25 MG Oral Tablet me toprolol tartrate (LOPRESSOR) 25 MG tablet metoprolol tartrate (LOPRESSOR) 25 MG tablet 03/30/2020 12:0 0:00 AM EDT 12.5 mg Oral active Take 0.5 tablets (12.5 mg total) by mouth 3 (three) times a day [facility] cetirizine hydrochloride 10 MG Oral Tablet cetirizine (ZYRTEC) 10 MG tablet cetirizine (ZYRTEC) 10 MG tablet 03/30/2020 12:00:00 AM EDT 10 mg Oral active Take 10 mg by mouth daily [facility] montelukast 10 MG Oral Tablet montelukast (SINGULAIR) 10 MG tablet montelukast (SINGULAIR) 10 MG tablet 03/30/2020 12:00:00 AM EDT 10 mg Oral active Take 10 mg by mouth [facility] cetirizine hydrochloride 10 MG Oral Tablet [Zyrtec] Zy rtec Allergy 10 MG Zyrtec Allergy 10 MG 03/29/2020 12:00:00 AM EDT 1.0 {tablet} active Zyrtec Allergy 10 MG eCW1 ([facility]) cetirizine hydrochloride 10 MG Oral Tablet [Zyrtec] Zy rtec Allergy 10 MG Zyrtec Allergy 10 MG 03/29/2020 12:00:00 AM EDT 1.0 {tablet} active Zyrtec Allergy 10 MG eCW1 ([facility]) cetirizine hydrochloride 10 MG Oral Tablet [Zyrtec] Zy rtec Allergy 10 MG Zyrtec Allergy 10 MG 03/29/2020 12:00:00 AM EDT 1.0 {tablet} active Zyrtec Allergy 10 MG eCW1 ([facility]) cetirizine hydrochloride 10 MG Oral Tablet [Zyrtec] Zy rtec Allergy 10 MG Zyrtec Allergy 10 MG 03/29/2020 12:00:00 AM EDT 1.0 {tablet} active Zyrtec Allergy 10 MG eCW1 ([facility]) cetirizine hydrochloride 10 MG Oral Tablet [Zyrtec] Zy rtec Allergy 10 MG Zyrtec Allergy 10 MG 03/29/2020 12:00:00 AM EDT 1.0 {tablet} active Zyrtec Allergy 10 MG eCW1 ([facility]) cetirizine hydrochloride 10 MG Oral Tablet [Zyrtec] Zy rtec Allergy 10 MG Zyrtec Allergy 10 MG 03/29/2020 12:00:00 AM EDT 1.0 {tablet} active Zyrtec Allergy 10 MG eCW1 ([facility]) cetirizine hydrochloride 10 MG Oral Tablet [Zyrtec] Zy rtec Allergy 10 MG Zyrtec Allergy 10 MG 03/29/2020 12:00:00 AM EDT 1.0 {tablet} active Zyrtec Allergy 10 MG eCW1 ([facility]) cetirizine hydrochloride 10 MG Oral Tablet [Zyrtec] Zy rtec Allergy 10 MG Zyrtec Allergy 10 MG 03/29/2020 12:00:00 AM EDT 1.0 {tablet} active Zyrtec Allergy 10 MG eCW1 ([facility]) cetirizine hydrochloride 10 MG Oral Tablet [Zyrtec] Zy rTEC Allergy 10 MG ZyrTEC Allergy 10 MG 03/29/2020 12:00:00 AM EDT 1.0 {tablet} active ZyrTEC Allergy 10 MG eCW1 ([facility]) cetirizine hydrochloride 10 MG Oral Tablet [Zyrtec] Zy rtec Allergy 10 MG Zyrtec Allergy 10 MG 03/29/2020 12:00:00 AM EDT 1.0 {tablet} active Zyrtec Allergy 10 MG eCW1 ([facility]) cetirizine hydrochloride 10 MG Oral Tablet [Zyrtec] Zy rtec Allergy 10 MG Zyrtec Allergy 10 MG 03/29/2020 12:00:00 AM EDT 1.0 {tablet} active Zyrtec Allergy 10 MG eCW1 ([facility]) Sertraline 100 MG Oral Tablet sertraline (ZOLOFT) 100 MG tablet sertraline (ZOLOFT) 100 MG tablet 10/13/2019 12:00:00 AM EDT 100 mg Oral aborted Take 100 mg by mouth daily [facility] gabapentin 300 MG Oral Capsule gabapentin (NEURONTIN) 300 MG capsule gabapentin (NEURONTIN) 300 MG capsule 10/03/2019 12:00:00 AM EDT 1 {capsule} Oral aborted Take 1 capsule by mouth 2 (two) times a day [facility] 12 HR Bupropion Hydrochloride 150 MG Ext ended Release Oral Tablet buPROPion (WELLBUTRIN SR) 150 MG 12 hr tablet buPROPion (WELLBUTRIN SR) 150 MG 12 hr tablet 09/29/2019 12:00:00 AM EDT 150 mg Oral aborted Take 150 mg by mouth 2 (two) times a day [facility] fluticasone (FLONASE) 50 MCG/ACT nasal spray [id number] 01/10/2015 12:00:00 AM EDT aborted as needed [facility] Insurance Providers Payer name Policy type / Coverage type Policy ID Covered alliance party ID Covered alliance party's relationship to mckeon Policy Mckeon Plan Information BCBS ROCKY FRANCON PPO [phone] [id number] SP [id number] UN COMMUNITY PLAN MCDO [id number] SP [id number] MEDICAID [id number] SP [id number] BLUE CROSS MCQUEEN PLAN [id number] SP [id number] [facility] Community Plan Commercial [id number] Self [facility] MEDICAID [id number] [id number] 1 [facility] MEDICAID [id number] Cristiane [id number] 51 [facility] Chary/MCR Health Maintenance Organization (HMO) [id number] Self [id number] [facility] Chary/MCR Medigap Part B [id number] Self [id number] [facility] Health Maintenance Organization (HMO) [id number] Self [id number] [facility] COMMUNITY PLAN MCDHMO [id number] SP [id number] ANSI-Medicaid [id number] ANSI-Medicaid [id number] ANSI-Medicaid [id number] Blue Option/Medicaid Health Maintenance Organization (HMO) V [id number] Self [id number] Medicaid [place] Medicaid [id number] Self [id number] Hmo Blue Option/Medicaid Health Maintenance Organization (HMO) V [id number] Self [id number] Medicaid [place] Medicaid [id number] Self [id number] Hmo Blue Option/Medicaid Health Maintenance Organization (HMO) V [id number] Self [id number] BLUE CROSS BLUE SHIELD-O/P [id number] 18 [id number] BLUE CROSS BLUE SHIELD-CLINIC [id number] 18 [id number] EXCELLUS BCBS P [id number] S [id number] [place] [id number] SP [id number] UNHC COMMUNITY PLAN MCDHMO [id number] SP [id number] UNHC COMMUNITY PLAN MCDHMO [id number] SP [id number] [place] [id number] SP [id number] MEDICAID M [id number] S [id number] [facility] O [id number] S [id number] MEDICAID [id number] SP [id number] ANSI-Medicaid [id number] ANSI-Medicaid [id number] ANSI-Medicaid [id number] ANSI-Medicaid [id number] ANSI-Medicaid [id number] Problems, Conditions, and Diagnoses Code Display Name Description Problem Type Effective Dates Data Source(s) I48.91 Unspecified atrial fibrillation Unspecified atri al fibrillation Diagnosis 03/07/2021 02:06:36 PM EDT [facility] I48.0 Paroxysmal atrial fibrillation Paroxysmal atrial fibri llation Diagnosis 11/28/2020 02:54:28 PM EDT [facility] E78.2 Mixed hyperlipidemia Mixed hyperlipidemia Diagnosis 04/13/2020 12:58:05 PM EST [facility] F17.200 Nicotine dependence, unspecified, uncomp licated Nicotine dependence, unspecified, uncomp Diagnosis 04/13/2020 12:58:05 PM [facility] R06.02 Shortness of breath Shortness of breath Diagnosis 1 06/13/2019 12:58:05 PM [facility] Z95.2 Presence of prosthetic heart valve Presence of p rosthetic heart valve Diagnosis 04/13/2020 12:58:05 PM EST [facility] R07.9 Chest pain, unspecified Chest pain, unspecified Diagno sis 04/13/2020 12:58:05 PM [facility] 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 Di agnosis 04/13/2020 12:58:05 PM [facility] E78.2 Mixed hyperlipidemia Mixed hyperlipidemia [id number] 04/13/2020 12:00:00 AM [facility] Surgeries/Procedures Procedure Description Date Indications Data Source(s) ECG ROUTINE ECG W/LEAST 12 LDS W/I&R <td>POCT AMB EKG</td><td>Routine</td><td>11/28/2020 4:05 PM EDT</td><td> Paroxysmal atrial fibrillation</td><td> </td> 11/28/2020 04:05:00 PM EDT Paroxysmal atrial fibrillation [facility] Paroxysmal atrial fibrillation POCT AMB EKG <td>POCT AMB EKG</td><td>Ghada mendoza</td><td>04/13/2020 2:01 PM EST</td><td> Atrial fibrillation</td><td> </td> 04/13/2020 07:01:00 PM EST Atrial fibrillation [facility] Atrial fibrillation Immunization: Flublok Quadrivalent (18 years & older) 0.5mL IM (Influenza) 03/29/2020 12:00:00 AM EDT eCW1 ([facility]) Results ID Date Data Source [id number] 08/31/2020 03:01:00 PM EDT [facility] Name Value Range Interpretation Code Description Data Raquel rce(s) Supporting Document(s) SARS COVID ANTIGEN NEGATIVE [facility] This lab was ordered by [facility] [place] reported by [facility]. ID Date Data Source NOBLE COVID AG (Point of Care) 08/31/2020 12:00:00 AM EDT eC W1 ([facility]) Name Value Range Interpretation Code Description Data Raquel rce(s) Supporting Document(s) NEGATIVE NEGATIVE NOBLE COVID ANTIGEN eCW1 ([facility]) ID Date Data Source [id number] 05/09/2020 12:38:37 PM EST [facility] Name Value Range Interpretation Code Description Data Raquel rce(s) Supporting Document(s) &PDF [facility] UTIMFd0eFiIYKwJl75/YUUmbRSEzk8WwMBjzCIc0YZnjNPQwJ0KpfYinZYEQXWrDOTcbAPOLT5TXGVOl hdG [file] AgICAgICAgICAgICAgICAgICAgICAgICAgICAgICAg ICAgICAgICAgICAgICAgICAgICAgDQogICAgICAgICAgICAgICAgICAgICAgICAgICAgICAgICAgICAg ICAgICAgICAgICAgICAgICAgICAgICAgICAgICAgICAgICAgICAgICAgICAgICAgICAgICAgICAgICAg ICAgDQogICAgICAgICAgICAgICAgICAgICAgICAgIC AgICAgICAgICAgICAgICAgICAgICAgICAgICAgICAgICAgICAgICAgICAgICAgICAgICAgICAgICAgIC AgICAgICAgICAgICAgDQogICAgICAgICAgICAgICAgICAgICAgICAgICAgICAgICAgICAgICAgICAgIC AgICAgICAgICAgICAgICAgICAgICAgICAgICAgICAg ICAgICAgICAgICAgICAgICAgICAgICAgDQogICAgICAgICAgICAgICAgICAgICAgICAgICAgICAgICAg ICAgICAgICAgICAgICAgICAgICAgICAgICAgICAgICAgICAgICAgICAgICAgICAgICAgICAgICAgICAg ICAgICAgDQogICAgICAgICAgICAgICAgICAgICAgIC AgICAgICAgICAgICAgICAgICAgICAgICAgICAgICAgICAgICAgICAgICAgICAgICAgICAgICAgICAgIC AgICAgICAgICAgICAgICAgDQogICAgICAgICAgICAgICAgICAgICAgICAgICAgICAgICAgICAgICAgIC AgICAgICAgICAgICAgICAgICAgICAgICAgICAgICAg ICAgICAgICAgICAgICAgICAgICAgICAgICAgDQogICAgICAgICAgICAgICAgICAgICAgICAgICAgICAg ICAgICAgICAgICAgICAgICAgICAgICAgICAgICAgICAgICAgICAgICAgICAgICAgICAgICAgICAgICAg ICAgICAgICAgDQogICAgICAgICAgICAgICAgICAgIC AgICAgICAgICAgICAgICAgICAgICAgICAgICAgICAgICAgICAgICAgICAgICAgICAgICAgICAgICAgIC AgICAgICAgICAgICAgICAgICAgDQogICAgICAgICAgICAgICAgICAgICAgICAgICAgICAgICAgICAgIC AgICAgICAgICAgICAgICAgICAgICAgICAgICAgICAg JKSxJBTlBGKhVDTfRJHoWIYwFRRdQIBhISZxVKCfUGf9T8qoKWNpJLBaHN7nEJu1Np2+DQoNCmVuZHN0 gyFeiW9WMC5jh4LqDZloSCLme9RyDZk6LJ2MDZXiKWziOE3CHTfift3FPWBvLPCfjDXEh0rtEhQwFWI5 VFCeVgtbIA9ZKRFbZ9ooqgSdXDJiDYGYJKemAMQUEV 2QCxNqS0SatC79WDHQDd6+JQutcgClGhfAIfHgFQBrz3CvRAp6BV2ISYPeUEgwJM5NANSbaO8tXPacPK 3EPkWnKZOtTVJZVuOhH00niINiUCf5Q8ZdZdOaCMHwRikzRXAiRUlpNoNiYTNwVvTmAFbeUJ2+ID4+DQ xrGV7SAChohmArFEAjHt6DBARuEYK9WSIqcJHjChCe IIIZQUunCU5VvBSvNMJ7rX0nBFqiMOQlWEOzA9qAXjOroMbkZW14fTjepbJkzPZsFCu+Os4ZAF7da1Yt BSx4fuErRYzkEXUeOAxsIVLjFNHyNJMbRGQ3OOA2FFIAKyMxEEBhAPUmWHjnRRVvGVSufd8FEBHxZOAa DAskLAWqJVQqADWvMObvOIZcIXMrVtt8VBYbTCWyDX 2BArRjJQPsHALaFEGwORMqIHZdyk5HKWTfHYCsMzM6VfQxGURbGABjKXswDMWgHMZuKoo9OYXpOZRwUS 2QOjQlUIVaEXC1PaDcLSAvZRMyum8XTCMlOGOjUeF0BDIoVAJeHIKyQDtpQPYeMQX0EBB7MEWfAZShVK 1YOeUxDVIzEOrlDbYvZDUeFQRehv0AKIYaARJwCmSx FUUeKWCtVJVcMXvkMXKmIUR0TIPyHWTjBEKhGJ4FQxLiTZNcMYl7EhYyMDFuBWNrcd9DNSLiTRZzVCh9 XhXaTCVgJWXdSVwmPLMoDZE9CMTfEZMoSAVdBP1EObPxIXKhQUJlHWIjIXOyHYJpga9PZGLoQGFwIVX6 VtSdXPArPVRjBFzqNUNvFTO3RMd3MRMeSEJnHC3IWw DqURShPGi5HBkjPIYySMMgsi1IASTkYBVvRVJjIGKnTLHuXZSvGUaeFJGpRFBfHomoPGHwUUEiUM5ZUf ZdAUjoSVZNWjv4TTdtT4n1IBNhOs0CF0Uzo0AiOxXwHQWRNKymIU7kooDiGGLeHx3GN8aDIhplMQZ4QE PqUMR7WJdxQANmFQkaD2F6PGHbRAR2XYPiDv8pRJUd XNd5QRDmXQgbCVKrFeY6BHBmSRW5SlYuNJY4BnJ0XxAxDH7OPo1XExV1YMN9kUHlBg3BKsD4TcmJNqAc MZ2GPBe= Procedure Social History Code Duration Value Status Description Data Source(s ) Alcohol intake 11/28/2020 12:00:00 AM EDT Current non-d usman of alcohol (finding) completed Current non-drinker of alcohol (finding) [facility] Smoking 10/08/2020 12:00:00 AM EDT Current Smoker completed Curre nt Smoker eCW1 ([facility]) Smoking 10/08/2020 12:00:00 AM EDT Current Smoker completed Curre nt Smoker eCW1 ([facility]) Smoking 10/08/2020 12:00:00 AM EDT Current Smoker completed Curre nt Smoker eCW1 ([facility]) Smoking 08/31/2020 12:00:00 AM EDT Current Smoker completed Curre nt Smoker eCW1 ([facility]) Smoking 08/31/2020 12:00:00 AM EDT Current Smoker completed Curre nt Smoker eCW1 ([facility]) Smoking 08/31/2020 12:00:00 AM EDT Current Smoker completed Curre nt Smoker eCW1 ([facility]) Smoking 08/31/2020 12:00:00 AM EDT Current Smoker completed Curre nt Smoker eCW1 ([facility]) Smoking 08/31/2020 12:00:00 AM EDT Current Smoker completed Curre nt Smoker eCW1 ([facility]) Smoking 08/31/2020 12:00:00 AM EDT Current Smoker completed Curre nt Smoker eCW1 ([facility]) Alcohol intake 04/13/2020 12:00:00 AM EST No completed [facility] Cigarette pack-years 04/13/2020 12:00:00 AM EST UNK completed [facility] Cigarettes smoked current (pack per day) - Reported 04/13/20 12:00:00 AM EST UNK completed [facility] Smoking 04/13/2020 12:00:00 AM EST Current every day smoker co mpleted Current every day smoker [facility] Smoking 03/29/2020 12:00:00 AM EDT Current Smoker completed Curre nt Smoker eCW1 ([facility]) Smoking 03/29/2020 12:00:00 AM EDT Current Smoker completed Curre nt Smoker eCW1 ([facility]) Vital Signs ID Date Data Source UNK Name Value Range Interpretation Code Description Data Source(s) Systolic blood pressure 138 mm[Hg] 138 mm[Hg] S [facility] Heart rate 75 /min 75 /min [facility] Body height 170.2 cm 170.2 cm [facility] Body weight 84.823 kg 84.823 kg [facility] Body mass index (BMI) [Ratio] 29.29 kg/m2 29.29 kg/m2 [facility] Oxygen saturation in Arterial blood by Pulse oximetry 98 % 98 % [facility] Diastolic blood pressure 90 mm[Hg] 90 mm[Hg] [facility] Body weight 186 [lb_av] 186 [lb_av] W1 ([facility]) Body height 66 [in_i] 66 [in_i] eCW1 ([facility]) Body mass index (BMI) [Ratio] 30.02 kg/m2 30.02 kg/m2 W1 ([facility]) Heart rate 72 /min 72 /min eCW1 ([facility]) Respiratory rate 18 /min 18 /min W1 ([facility]) Body temperature 97.8 [degF] 97.8 [degF] W1 ( [facility]) Systolic blood pressure 123 mm[Hg] 123 mm[Hg] e CW1 ([facility]) Diastolic blood pressure 77 mm[Hg] 77 mm[Hg] eCW1 ([facility]) Body height 66 [in_i] 66 [in_i] eCW1 ([facility]) Body weight 185.6 [lb_av] 185.6 [lb_av] eCW1 ([facility]) Body mass index (BMI) [Ratio] 29.95 kg/m2 29.95 kg/m2 eCW1 ([facility]) Heart rate 76 /min 76 /min eCW1 ([facility]) Respiratory rate 20 /min 20 /min eCW1 ([facility]) Body temperature 97.7 [degF] 97.7 [degF] eCW1 ( [facility]) Systolic blood pressure 137 mm[Hg] 137 mm[Hg] e CW1 ([facility]) Diastolic blood pressure 85 mm[Hg] 85 mm[Hg] eCW1 ([facility]) Systolic blood pressure 130 mm[Hg] 130 mm[Hg] [facility] Diastolic blood pressure 82 mm[Hg] 82 mm[Hg] [facility] Heart rate 59 /min 59 /min [facility] Body weight 82.555 kg 82.555 kg [facility] Body mass index (BMI) [Ratio] 27.67 kg/m2 27.67 kg/m2 [facility] Oxygen saturation in Arterial blood by Pulse oximetry 96 % 96 % [facility] Body temperature 97.8 [degF] 97.8 [degF] eCW1 ( [facility]) Systolic blood pressure 148 mm[Hg] 148 mm[Hg] e CW1 ([facility]) Diastolic blood pressure 97 mm[Hg] 97 mm[Hg] eCW1 ([facility]) Body weight 180 [lb_av] 180 [lb_av] eCW1 ([facility]) Body height 66 [in_i] 66 [in_i] eCW1 ([facility]) Body mass index (BMI) [Ratio] 29.05 kg/m2 29.05 kg/m2 eCW1 ([facility]) Heart rate 85 /min 85 /min eCW1 ([facility]) Respiratory rate 18 /min 18 /min eCW1 ([facility]) Patient Treatment Plan of Care Planned Activity Planned Date Details Description Data Source (s) Nebulizer/Tubing/Mouthpiece 10/08/2020 12:00:00 AM EDT eCW1 ([facility]) Nebulizer/Tubing/Mouthpiece 10/08/2020 12:00:00 AM EDT eCW1 ([facility]) Nebulizer/Tubing/Mouthpiece 10/08/2020 12:00:00 AM EDT eCW1 ([facility]) Albuterol 0.833 MG/ML / Ipratropium [place] 0.167 MG/M L Inhalant Solution 09/25/2020 12:00:00 AM EDT [facility] Metoprolol Tartrate 25 MG Oral Tablet 09/07/2020 12:00:00 AM EDT [facility] Warfarin Sodium 5 MG Oral Tablet 09/07/2020 12:00:00 AM EDT [facility] Prednisone 20 MG Oral Tablet 08/31/2020 12:00:00 AM EDT eCW1 ([facility]) doxycycline hyclate 100 MG Oral Capsule 08/31/2020 12:00:00 AM EDT eCW1 ([facility]) Prednisone 20 MG Oral Tablet 08/31/2020 12:00:00 AM EDT eCW1 ([facility]) doxycycline hyclate 100 MG Oral Capsule 08/31/2020 12:00:00 AM EDT eCW1 ([facility]) Prednisone 20 MG Oral Tablet 08/31/2020 12:00:00 AM EDT eCW1 ([facility]) doxycycline hyclate 100 MG Oral Capsule 08/31/2020 12:00:00 AM EDT eCW1 ([facility]) Prednisone 20 MG Oral Tablet 08/31/2020 12:00:00 AM EDT eCW1 ([facility]) doxycycline hyclate 100 MG Oral Capsule 08/31/2020 12:00:00 AM EDT eCW1 ([facility]) Prednisone 20 MG Oral Tablet 08/31/2020 12:00:00 AM EDT eCW1 ([facility]) doxycycline hyclate 100 MG Oral Capsule 08/31/2020 12:00:00 AM EDT eCW1 ([facility]) Prednisone 20 MG Oral Tablet 08/31/2020 12:00:00 AM EDT eCW1 ([facility]) doxycycline hyclate 100 MG Oral Capsule 08/31/2020 12:00:00 AM EDT eCW1 ([facility]) Omeprazole 20 MG Delayed Release Oral Capsule 05/31/2020 12:00:00 A M EST [facility] montelukast 10 MG Oral Tablet 03/30/2020 12:00:00 AM EDT [facility] cetirizine hydrochloride 10 MG Oral Tablet 03/30/2020 12:00:00 AM E DT [facility] Furosemide 40 MG Oral Tablet 03/30/2020 12:00:00 AM EDT [facility] Metoprolol Tartrate 25 MG Oral Tablet 03/30/2020 12:00:00 AM EDT [facility] Warfarin Sodium 5 MG Oral Tablet 03/30/2020 12:00:00 AM EDT [facility] cetirizine hydrochloride 10 MG Oral Tablet [Zyrtec] 03/29/20 12:00:00 AM EDT eCW1 ([facility]) cetirizine hydrochloride 10 MG Oral Tablet [Zyrtec] 03/29/20 12:00:00 AM EDT eCW1 ([facility]) cetirizine hydrochloride 10 MG Oral Tablet [Zyrtec] 03/29/20 12:00:00 AM EDT eCW1 ([facility]) cetirizine hydrochloride 10 MG Oral Tablet [Zyrtec] 03/29/20 12:00:00 AM EDT eCW1 ([facility]) cetirizine hydrochloride 10 MG Oral Tablet [Zyrtec] 03/29/20 12:00:00 AM EDT eCW1 ([facility]) Sertraline 100 MG Oral Tablet 10/13/2019 12:00:00 AM EDT [facility] gabapentin 300 MG Oral Capsule 10/03/2019 12:00:00 AM EDT [facility] 12 HR Bupropion Hydrochloride 150 MG Extended Release Oral Tablet 09/29/2019 12:00:00 AM EDT [facility] fluticasone (FLONASE) 50 MCG/ACT nasal spray 01/10/2015 12:00:00 AM EDT [facility]
--- NOTE | 2021-05-02 06:41 | ECGEPIP ---
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
== END 2021-05-02 01:30 | disposition left against medical advice (07) ==
LOC: M ED 17:30
DX: Z53.21 Procedure and treatment not carried out due to patient leaving prior to being seen by health care provider (principal)

== ENCOUNTER → 2021-07-25 | Outpatient (CLI) | payer OTHER ==
[~2021-07-25] MED LIST changes: +TIZA10TA PO; -TIZA4TAB4 PO
== END ==
LOC: M RAD 11:30
PROVIDERS: ATTEND Nurse Practitioner Family
DX: Z11.52 Encounter for screening for COVID-19 (principal)

== ENCOUNTER → 2022-01-16 | Outpatient (CLI) | payer OTHER ==
[~2022-01-16] MED LIST changes: +ALBU2.5V10 INH; -ALBU83IN INH
== END ==
LOC: M RAD 11:51
PROVIDERS: ATTEND Nurse Practitioner Family
DX: R94.6 Abnormal results of thyroid function studies (principal)

== ENCOUNTER → 2022-03-04 | Outpatient (CLI) | payer OTHER | LOC: M RAD 09:18 | PROVIDERS: ATTEND Internal Medicine Pulmonary Disease | DX: Z87.891 Personal history of nicotine dependence (principal) ==

== ENCOUNTER → 2022-03-06 | Outpatient (REF) | payer OTHER, MEDICAID ==
[~2022-03-06] MED LIST changes: +DOXY100T PO; +GUAISYP5 PO; +PRED10PA PO; +SPIR12.9 PO; +VITA200032 PO; +WARF-23 PO
== END ==
LOC: M PLALAB 07:04
PROVIDERS: ATTEND Nurse Practitioner Family
DX: Z12.4 Encounter for screening for malignant neoplasm of cervix (principal)

== ENCOUNTER 2022-03-07 17:41 | Inpatient (IN) | payer OTHER ==
[~2022-03-07] VITALS: Ht 175.3 cm; Wt 96.5 kg
[~2022-03-07 17:41] MED LIST changes: -DOXY100T PO; -GUAISYP5 PO; -PRED10PA PO; -SPIR12.9 PO; -VITA200032 PO; -WARF-23 PO
[2022-03-07] MEDS ORDERED: SPIR12.9 PO (18:11)
[2022-03-07] MEDS ORDERED: methylPREDNISolone 125MG 2ML VIAL IV ONE (18:40)
[2022-03-07 19:25] LABS: RSV AMPLIFICATION NEGATIVE (NEGATIVE)
[2022-03-07 19:36] LABS: VENOUS BASE EXCESS 1.3 (-2.0-2.0); VENOUS HCO3 26.1 MEQ/L (23.0-27.0); VENOUS PARTIAL PRESSURE CO2 41.8 mmHg (38.0-50.0); VENOUS PARTIAL PRESSURE O2 35.9 mmHg (30.0-50.0); VENOUS PH 7.413 UNITS (7.330-7.430); VENOUS TOTAL CO2 27.4 MEQ/L (24.0-28.0)
[2022-03-07 19:41] LABS: BASO # 0.1 10^3/uL (0.0-0.2); BASO % 0.4 % (0.0-1.0); EOS # 0.2 10^3/uL (0.0-0.5); EOS % 1.3 % (0.0-3.0); HEMATOCRIT 44.5 % (36.0-47.0); HEMOGLOBIN 13.7 g/dl (12.0-15.5); LYMPH # 1.8 10^3/uL (1.5-5.0); LYMPH % 9.7 % (24.0-44.0); MEAN CORPUSCULAR HEMOGLOBIN 26.6 pg (27.0-33.0); MEAN CORPUSCULAR HGB CONC 30.8 g/dl (32.0-36.5); MEAN CORPUSCULAR VOLUME 86.4 fl (80.0-96.0); MONO # 0.9 10^3/uL (0.0-0.8); MONO % 4.7 % (2.0-8.0); NEUTROPHILS # 15.5 10^3/uL (1.5-8.5); NEUTROPHILS % 83.4 % (36.0-66.0); PLATELET COUNT, AUTOMATED 296 10^3/uL (150-450); RED BLOOD COUNT 5.15 10^6/uL (4.00-5.40); WHITE BLOOD COUNT 18.6 10^3/uL (4.0-10.0)
[2022-03-07] MEDS: COMBIVENT RESPIMAT 100-20MCG INHALER 4GM INH SCH ×3 (19:42→20:21)
[2022-03-07 20:09] LABS: INR 2.36; PROTHROMBIN TIME 26.2 SECONDS (12.7-14.5)
[2022-03-07 20:24] LABS: ALBUMIN 3.8 GM/DL (3.2-5.2); ALT/SGPT 33 U/L (12-78); BILIRUBIN,DIRECT 0.2 MG/DL (0.0-0.2); BILIRUBIN,TOTAL 0.5 MG/DL (0.2-1.0); BLOOD UREA NITROGEN 8 MG/DL (7-18); CALCIUM LEVEL 9.1 MG/DL (8.5-10.1); CARBON DIOXIDE LEVEL 26 MEQ/L (21-32); CHLORIDE LEVEL 105 MEQ/L (98-107); CREATININE FOR GFR 0.99 MG/DL (0.55-1.30); GLOMERULAR FILTRATION RATE > 60.0 (>51); GLUCOSE, FASTING 100 MG/DL (70-100); NT-PRO BNP 1109 PG/ML (<125); POTASSIUM SERUM 4.3 MEQ/L (3.5-5.1); SODIUM LEVEL 135 MEQ/L (136-145); TOTAL PROTEIN 7.8 GM/DL (6.4-8.2)
[2022-03-07 22:53] LABS: CK-MB VALUE MASS 1.4 NG/ML (<3.6); MB/CK RELATIVE INDEX 1.52 (< OR =4)
[2022-03-07] MEDS ORDERED: VITA200032 PO (23:48)
[2022-03-07] MEDS ORDERED: WARF-23 PO (23:48)
[2022-03-07] MEDS ORDERED: HOME MED LIST COMPLETE! XX SCH (23:50)
[2022-03-07] MEDS ORDERED: ACETAMINOPHEN TAB 650MG DOSE (2X325MG) PO PRN (23:50)
[2022-03-07] MEDS ORDERED: guaiFENesin DM LIQ 10ML UD PO PRN (23:50)
[2022-03-07] MEDS ORDERED: LEVALBUTEROL 1.25 MG/0.5 ML CONCENTRATE NEB NEB PRN (23:50)
[2022-03-08] MEDS ORDERED: DOXYCYCLINE HYCLATE 100MG TABLET PO ONE (00:05)
[2022-03-08] MEDS: IPRATROPIUM 0.5MG/ALBUTEROL 2.5MG INH SOL UD 3ML (DUONEB) NEB SCH ×4 (01:23→20:04)
[2022-03-08 01:44] LABS: CK-MB VALUE MASS 1.4 NG/ML (<3.6); MB/CK RELATIVE INDEX 1.47 (< OR =4)
[2022-03-08 05:54] LABS: HEMATOCRIT 42.8 % (36.0-47.0); HEMOGLOBIN 13.6 g/dl (12.0-15.5); MEAN CORPUSCULAR HEMOGLOBIN 27.1 pg (27.0-33.0); MEAN CORPUSCULAR HGB CONC 31.8 g/dl (32.0-36.5); MEAN CORPUSCULAR VOLUME 85.3 fl (80.0-96.0); PLATELET COUNT, AUTOMATED 286 10^3/uL (150-450); RED BLOOD COUNT 5.02 10^6/uL (4.00-5.40)
[2022-03-08 06:06] LABS: INR 1.71; PROTHROMBIN TIME 20.5 SECONDS (12.7-14.5)
[2022-03-08 06:40] LABS: BLOOD UREA NITROGEN 15 MG/DL (7-18); CALCIUM LEVEL 8.9 MG/DL (8.5-10.1); CARBON DIOXIDE LEVEL 23 MEQ/L (21-32); CHLORIDE LEVEL 106 MEQ/L (98-107); CREATININE FOR GFR 1.01 MG/DL (0.55-1.30); GLOMERULAR FILTRATION RATE > 60.0 (>51); GLUCOSE, FASTING 195 MG/DL (70-100); POTASSIUM SERUM 3.8 MEQ/L (3.5-5.1); SODIUM LEVEL 137 MEQ/L (136-145)
[2022-03-08 08:00] VITALS: BP 136/88
[2022-03-08] MEDS: TIOTROPIUM INHALER/CAPSULE (SPIRIVA) INH SCH (08:19)
[2022-03-08] MEDS: predniSONE 20 MG TAB PO SCH (09:22)
[2022-03-08] MEDS: DOCUSATE SODIUM 100MG CAPSULE PO SCH ×2 (09:22→20:36)
[2022-03-08] MEDS: DOXYCYCLINE HYCLATE 100MG TABLET PO SCH ×2 (09:22→20:34)
[2022-03-08] MEDS: MONTELUKAST 10 MG TAB PO SCH (09:22)
[2022-03-08] MEDS: guaiFENesin ER 600 MG TAB PO SCH ×2 (09:23→20:36)
[2022-03-08] MEDS: METOPROLOL TART 12.5 MG PER 1/2 TAB PO SCH ×3 (09:23→20:36)
[2022-03-08] MEDS: CETIRIZINE (ZyrTEC) 10 MG TAB PO SCH (09:23)
[2022-03-08 10:25] VITALS: BP 121/81
[2022-03-08] MEDS ORDERED: WARFARIN SOD 5MG TAB PO SCH (17:00)
[2022-03-08 20:54] VITALS: BP 154/98
[2022-03-09] MEDS: IPRATROPIUM 0.5MG/ALBUTEROL 2.5MG INH SOL UD 3ML (DUONEB) NEB SCH ×4 (02:00→13:28)
[2022-03-09 05:38] VITALS: BP 118/65
[2022-03-09 05:53] LABS: HEMATOCRIT 39.7 % (36.0-47.0); HEMOGLOBIN 12.6 g/dl (12.0-15.5); MEAN CORPUSCULAR HEMOGLOBIN 27.1 pg (27.0-33.0); MEAN CORPUSCULAR HGB CONC 31.7 g/dl (32.0-36.5); MEAN CORPUSCULAR VOLUME 85.4 fl (80.0-96.0); PLATELET COUNT, AUTOMATED 291 10^3/uL (150-450); RED BLOOD COUNT 4.65 10^6/uL (4.00-5.40); WHITE BLOOD COUNT 23.5 10^3/uL (4.0-10.0)
[2022-03-09 06:02] LABS: INR 1.88
[2022-03-09 06:30] LABS: BLOOD UREA NITROGEN 16 MG/DL (7-18); CALCIUM LEVEL 8.8 MG/DL (8.5-10.1); CARBON DIOXIDE LEVEL 26 MEQ/L (21-32); CHLORIDE LEVEL 107 MEQ/L (98-107); CREATININE FOR GFR 0.85 MG/DL (0.55-1.30); GLOMERULAR FILTRATION RATE > 60.0 (>51); GLUCOSE, FASTING 112 MG/DL (70-100); MAGNESIUM LEVEL 2.1 MG/DL (1.8-2.4); POTASSIUM SERUM 4.1 MEQ/L (3.5-5.1); SODIUM LEVEL 139 MEQ/L (136-145)
[2022-03-09] MEDS: TIOTROPIUM INHALER/CAPSULE (SPIRIVA) INH SCH (06:55)
[2022-03-09] MEDS: CETIRIZINE (ZyrTEC) 10 MG TAB PO SCH (08:46)
[2022-03-09 08:49] VITALS: BP 115/72
[2022-03-09] MEDS: DOXYCYCLINE HYCLATE 100MG TABLET PO SCH (08:49)
[2022-03-09] MEDS: guaiFENesin ER 600 MG TAB PO SCH (08:49)
[2022-03-09] MEDS: MONTELUKAST 10 MG TAB PO SCH (08:49)
[2022-03-09] MEDS: METOPROLOL TART 12.5 MG PER 1/2 TAB PO SCH (08:49)
[2022-03-09] MEDS: predniSONE 20 MG TAB PO SCH (08:50)
[2022-03-09] MEDS: DOCUSATE SODIUM 100MG CAPSULE PO SCH (08:50)
[2022-03-09] MEDS ORDERED: FLUBLOK(EGG FREE)(QUAD)INFLUENZA VACC 0.5ML SYRINGE 18YRS & OLDER IM.IMMUN ONE (09:00)
[2022-03-09] MEDS ORDERED: GUAISYP5 PO (09:18)
[2022-03-09] MEDS ORDERED: DOXY100T PO (09:18)
[2022-03-09] MEDS ORDERED: PRED10PA PO (09:18)
== END 2022-03-09 14:26 | disposition home or self-care (01) | DRG 140 ==
LOC: M ED 17:41 → M ED INP 23:47 → ENRESERV 03-08 08:07 → M MSPAV 03-08 10:15
PROVIDERS: ADMIT Internal Medicine; ATTEND Student in an Organized Health Care Education/Training Program
DX: J44.1 Chronic obstructive pulmonary disease with (acute) exacerbation (principal); J96.01 Acute respiratory failure with hypoxia; Z99.81 Dependence on supplemental oxygen; I48.91 Unspecified atrial fibrillation; I25.10 Atherosclerotic heart disease of native coronary artery without angina pectoris; J30.9 Allergic rhinitis, unspecified; F17.210 Nicotine dependence, cigarettes, uncomplicated; H66.92 Otitis media, unspecified, left ear; Z79.899 Other long term (current) drug therapy; Z88.0 Allergy status to penicillin; Z88.2 Allergy status to sulfonamides; Z88.6 Allergy status to analgesic agent; Z91.010 Allergy to peanuts; Z85.41 Personal history of malignant neoplasm of cervix uteri; Z95.2 Presence of prosthetic heart valve; Z91.018 Allergy to other foods; Z95.5 Presence of coronary angioplasty implant and graft; Z91.040 Latex allergy status; Z79.01 Long term (current) use of anticoagulants; Z91.030 Bee allergy status; E55.9 Vitamin D deficiency, unspecified

== ENCOUNTER → 2022-04-08 | Outpatient (REF) | payer OTHER ==
[~2022-04-08] MED LIST changes: +DOXY100T PO; +GUAISYP5 PO; +PRED10PA PO; +SPIR12.9 PO; +VITA200032 PO; +WARF-23 PO
[2022-04-08 17:57] LABS: FREE T4 1.01 NG/DL (0.76-1.46); THYROID STIMULATING HORMONE 4.77 uIU/ML (0.358-3.740)
== END ==
LOC: M LAB REF 16:10
PROVIDERS: ATTEND Nurse Practitioner Family
DX: R94.6 Abnormal results of thyroid function studies (principal)

== ENCOUNTER → 2022-06-16 | Outpatient (CLI) | payer OTHER ==
[~2022-06-16] MED LIST changes: +ADV250INH INH; +ALBU90AE IH; +FAMO20TA PO; +VARE1TAB2 PO
== END ==
LOC: M LABSMTC 10:13
PROVIDERS: ATTEND Anesthesiology
DX: Z01.818 Encounter for other preprocedural examination (principal); Z11.52 Encounter for screening for COVID-19

== ENCOUNTER 2022-06-19 10:46 | Day surgery (SDC) | payer OTHER ==
[~2022-06-19] VITALS: Ht 170.2 cm; Wt 96.6 kg
[~2022-06-19 10:46] MED LIST changes: +NS 1,000 ML IV ONE
[2022-06-19] MEDS ORDERED: propofoL 500 MG/50 ML VIAL As Ordered ONE (11:13)
[2022-06-19] MEDS ORDERED: GLYCOPYRROLATE INJ 0.2 MG/ML 2 ML VIAL As Ordered ONE (11:13)
[2022-06-19] MEDS ORDERED: LIDOCAINE 2% INJ 100 MG/5 ML SYRINGE As Ordered ONE (11:13)
[2022-06-19] MEDS ORDERED: propofoL 200 MG/20 ML VIAL As Ordered ONE (11:15)
[2022-06-19] MEDS ORDERED: fentaNYL 100 MCG/2 ML INJECTION As Ordered ONE (11:50)
[2022-06-19 12:45] VITALS: BP 136/74
== END 2022-06-19 13:05 | disposition home or self-care (01) ==
LOC: M OPP 10:46
PROVIDERS: ATTEND Internal Medicine Gastroenterology
DX: Z80.0 Family history of malignant neoplasm of digestive organs (principal); K63.5 Polyp of colon; K57.30 Diverticulosis of large intestine without perforation or abscess without bleeding; K64.8 Other hemorrhoids; R12 Heartburn; I48.91 Unspecified atrial fibrillation; I10 Essential (primary) hypertension; K21.9 Gastro-esophageal reflux disease without esophagitis; M19.90 Unspecified osteoarthritis, unspecified site; F41.9 Anxiety disorder, unspecified; F32.A Depression, unspecified; G43.909 Migraine, unspecified, not intractable, without status migrainosus; J44.9 Chronic obstructive pulmonary disease, unspecified; F17.210 Nicotine dependence, cigarettes, uncomplicated; Z95.0 Presence of cardiac pacemaker; Z86.14 Personal history of Methicillin resistant Staphylococcus aureus infection; Z88.0 Allergy status to penicillin; Z88.2 Allergy status to sulfonamides; Z88.6 Allergy status to analgesic agent; Z91.010 Allergy to peanuts; Z91.018 Allergy to other foods; Z91.030 Bee allergy status; Z91.040 Latex allergy status; Z79.01 Long term (current) use of anticoagulants; Z79.899 Other long term (current) drug therapy; Z82.49 Family history of ischemic heart disease and other diseases of the circulatory system; Z80.41 Family history of malignant neoplasm of ovary

== ENCOUNTER → 2022-08-13 | Outpatient (CLI) | payer OTHER ==
[~2022-08-13] MED LIST changes: +MONT-5 PO; -NS 1,000 ML IV ONE; -SING10TA32 PO
[2022-08-13 14:31] LABS: THYROID STIMULATING HORMONE 4.64 uIU/ML (0.55-4.78)
[2022-08-13 14:34] LABS: FREE T4 1.01 NG/DL (0.89-1.76)
== END ==
LOC: M LAB 13:27
PROVIDERS: ATTEND Nurse Practitioner Family
DX: R94.6 Abnormal results of thyroid function studies (principal)

== ENCOUNTER → 2022-10-16 | Outpatient (CLI) | payer OTHER ==
[2022-10-16 17:22] LABS: THYROID STIMULATING HORMONE 1.247 uIU/ML (0.55-4.78)
[2022-10-16 17:23] LABS: FREE T4 1.51 NG/DL (0.89-1.76)
== END ==
LOC: M LAB 15:47
PROVIDERS: ATTEND Internal Medicine Endocrinology, Diabetes & Metabolism
DX: E04.1 Nontoxic single thyroid nodule (principal)

== ENCOUNTER → 2023-04-16 | Outpatient (CLI) | payer OTHER ==
[~2023-04-16] MED LIST changes: -OXYB5TAB10 PO; +OXYB5TAB11 PO
[2023-04-16 15:54] LABS: BASO % 0.4 % (0.0-1.0); EOS # 0.1 10^3/uL (0.0-0.5); EOS % 1.1 % (0.0-3.0); HEMATOCRIT 44.3 % (36.0-47.0); HEMOGLOBIN 14.2 g/dl (12.0-15.5); LYMPH # 2.2 10^3/uL (1.5-5.0); LYMPH % 21.4 % (24.0-44.0); MEAN CORPUSCULAR HEMOGLOBIN 26.7 pg (27.0-33.0); MEAN CORPUSCULAR HGB CONC 32.1 g/dl (32.0-36.5); MEAN CORPUSCULAR VOLUME 83.4 fl (80.0-96.0); MONO # 0.6 10^3/uL (0.0-0.8); MONO % 5.4 % (2.0-8.0); NEUTROPHILS # 7.5 10^3/uL (1.5-8.5); NEUTROPHILS % 71.4 % (36.0-66.0); PLATELET COUNT, AUTOMATED 226 10^3/uL (150-450); RED BLOOD COUNT 5.31 10^6/uL (4.00-5.40); WHITE BLOOD COUNT 10.5 10^3/uL (4.0-10.0)
[2023-04-16 16:24] LABS: ALBUMIN 3.9 G/DL (3.2-5.2); ALKALINE PHOSPHATASE 143 U/L (46-116); ALT/SGPT 20 U/L (7.0-40); AST/SGOT 25 U/L (<34); BILIRUBIN,TOTAL 0.5 MG/DL (0.3-1.2); BLOOD UREA NITROGEN 7 MG/DL (9-23); CALCIUM LEVEL 9.2 MG/DL (8.5-10.1); CARBON DIOXIDE LEVEL 28 MMOL/L (20-31); CHLORIDE LEVEL 104 MMOL/L (98-107); CREATININE FOR GFR 0.95 MG/DL (0.55-1.30); GLOMERULAR FILTRATION RATE > 60.0 (>51); GLUCOSE, FASTING 113 MG/DL (60-100); POTASSIUM SERUM 4.6 MMOL/L (3.5-5.1); SODIUM LEVEL 140 MMOL/L (136-145); TOTAL PROTEIN 7.2 G/DL (5.7-8.2)
[2023-04-16 16:26] LABS: THYROID STIMULATING HORMONE 5.451 uIU/ML (0.55-4.78)
== END ==
LOC: M LAB 14:50
PROVIDERS: ATTEND Internal Medicine Cardiovascular Disease
DX: R06.09 Other forms of dyspnea (principal)

== ENCOUNTER 2023-09-07 19:58 | Emergency (ER) | payer OTHER ==
[~2023-09-07 19:58] MED LIST changes: -OXYB5TAB11 PO; +OXYB5TAB14 PO; +TIZA4CAP3 PO; -TIZA4CAP6 PO
[2023-09-07 21:37] LABS: Trichomonas vaginalis (AMP) NOT DETECTED (NEGATIVE)
[2023-09-07 22:01] LABS: GC DNA AMPLIFICATION NEGATIVE (NEGATIVE)
[2023-09-07] MEDS ORDERED: IPRATROPIUM 0.5MG/ALBUTEROL 2.5MG INH SOL UD 3ML (DUONEB) NEB PRN (22:45)
[2023-09-07] MEDS: CEPHALEXIN 500 MG CAP PO ONE (22:50)
[2023-09-07] MEDS ORDERED: CEPH500C PO (22:53)
[2023-09-07] MEDS ORDERED: PRED20TA PO (22:53)
[2023-09-07] MEDS: IPRATROPIUM 0.5MG/ALBUTEROL 2.5MG INH SOL UD 3ML (DUONEB) NEB ONE ×2 (23:05→23:08)
[2023-09-07 23:11] VITALS: BP 128/88; TEMP 98.8; O2SAT 96
[2023-09-07] MEDS: methylPREDNISolone 125MG 2ML VIAL IV ONE (23:22)
== END 2023-09-07 23:27 | disposition home or self-care (01) ==
LOC: M ED 19:58
DX: N39.0 Urinary tract infection, site not specified (principal); B34.2 Coronavirus infection, unspecified; J44.9 Chronic obstructive pulmonary disease, unspecified; F17.200 Nicotine dependence, unspecified, uncomplicated; F12.10 Cannabis abuse, uncomplicated; Z88.0 Allergy status to penicillin; Z88.2 Allergy status to sulfonamides; Z88.6 Allergy status to analgesic agent; Z91.030 Bee allergy status; Z91.010 Allergy to peanuts; Z91.040 Latex allergy status; Z91.018 Allergy to other foods; Z79.2 Long term (current) use of antibiotics; Z79.52 Long term (current) use of systemic steroids; Z79.899 Other long term (current) drug therapy
CPT/HCPCS: 71046; 81001; 87088; 87186; 87486; 87581; 87633; 87661; 87798; 87810; 87850; 93041; 94640; 94760; 96374; 99284; J2919

== ENCOUNTER 2024-06-09 04:26 | Inpatient (IN) | payer OTHER ==
[~2024-06-09] VITALS: Ht 172.7 cm; Wt 62.1 kg
[~2024-06-09 04:26] MED LIST changes: -ADV250INH INH; -ADV500INH INH; +ADVA1AER10 INH; +ADVA1AER9 INH; -ALBU90AE IH; +ALBU90AE2 IH; +CEPH500C PO; +GABA-1172 PO; -GABA-282 PO
[2024-06-09] MEDS ORDERED: ISOVUE-370 76% 100ML VIAL As Ordered ONE (04:52)
[2024-06-09 05:09] LABS: BASO % 0.3 % (0.0-1.0); EOS # 0.1 10^3/uL (0.0-0.5); EOS % 0.6 % (0.0-3.0); HEMATOCRIT 46.6 % (36.0-47.0); HEMOGLOBIN 15.6 g/dl (12.0-15.5); LYMPH # 1.7 10^3/uL (1.5-5.0); LYMPH % 12.3 % (24.0-44.0); MEAN CORPUSCULAR HEMOGLOBIN 29.1 pg (27.0-33.0); MEAN CORPUSCULAR HGB CONC 33.5 g/dl (32.0-36.5); MEAN CORPUSCULAR VOLUME 86.8 fl (80.0-96.0); MONO # 0.8 10^3/uL (0.0-0.8); NEUTROPHILS % 80.3 % (36.0-66.0); PLATELET COUNT, AUTOMATED 261 10^3/uL (150-450); RED BLOOD COUNT 5.37 10^6/uL (4.00-5.40); WHITE BLOOD COUNT 13.7 10^3/uL (4.0-10.0)
[2024-06-09 05:23] LABS: INR 3.6; PARTIAL THROMBOPLASTIN TIME 62.3 SECONDS (24.8-34.2); PROTHROMBIN TIME 35.6 SECONDS (12.5-14.5)
[2024-06-09 05:58] LABS: BLOOD UREA NITROGEN 10 MG/DL (9-23); CALCIUM LEVEL 8.7 MG/DL (8.5-10.1); CARBON DIOXIDE LEVEL 27 MMOL/L (20-31); CHLORIDE LEVEL 100 MMOL/L (98-107); CK-MB VALUE MASS < 1.0 NG/ML (<3.6); CPK CREATINE PHOSPHOKINASE 72 U/L (34-145); GLOMERULAR FILTRATION RATE > 60.0 (>51); GLUCOSE, FASTING 121 MG/DL (60-100); MB/CK RELATIVE INDEX 1.38 (< OR =4); POTASSIUM SERUM 4.9 MMOL/L (3.5-5.1); SODIUM LEVEL 139 MMOL/L (136-145)
[2024-06-09] MEDS: METOPROLOL SUCC (TopROL XL) 50MG **XL** TAB PO ONE (06:05)
[2024-06-09] MEDS: POTASSIUM CHLORIDE 10MEQ SR TABLET PO ONE (06:05)
[2024-06-09] MEDS: methylPREDNISolone 125MG 2ML VIAL IV ONE (06:05)
[2024-06-09] MEDS: IPRATROPIUM 0.5MG/ALBUTEROL 2.5MG INH SOL UD 3ML (DUONEB) NEB SCH ×2 (06:28→10:39)
[2024-06-09] MEDS ORDERED: METOPROLOL 5 MG/5 ML VIAL IV SCH (07:05)
[2024-06-09 07:12] LABS: CK-MB VALUE MASS < 1.0 NG/ML (<3.6)
[2024-06-09 07:13] LABS: CPK CREATINE PHOSPHOKINASE 40 U/L (34-145)
[2024-06-09] MEDS: LevoFLOXacin IV 750 MG in IV 1 EA IV ONE (08:29)
[2024-06-09] MEDS ORDERED: **NOTE PATIENT COMMENT** MISC XX SCH (09:00)
[2024-06-09] MEDS ORDERED: IPRATROPIUM 0.5MG/ALBUTEROL 2.5MG INH SOL UD 3ML (DUONEB) NEB PRN (09:00)
[2024-06-09] MEDS ORDERED: ZYRT10TA12 PO (09:16)
[2024-06-09] MEDS ORDERED: IPRA0.00 INH (09:16)
[2024-06-09] MEDS ORDERED: HOME MED LIST COMPLETE! XX SCH (09:20)
[2024-06-09] MEDS: FAMOTIDINE 20 MG TAB PO SCH (11:00)
[2024-06-09] MEDS: methylPREDNISolone 40MG 1ML VIAL IV SCH (18:04)
[2024-06-09] MEDS: ADVAIR HFA 115/21MCG INHALER INH SCH (22:10)
[2024-06-10 07:04] LABS: HEMATOCRIT 43.8 % (36.0-47.0); HEMOGLOBIN 14.4 g/dl (12.0-15.5); MEAN CORPUSCULAR HEMOGLOBIN 28.9 pg (27.0-33.0); MEAN CORPUSCULAR HGB CONC 32.9 g/dl (32.0-36.5); PLATELET COUNT, AUTOMATED 219 10^3/uL (150-450); RED BLOOD COUNT 4.98 10^6/uL (4.00-5.40); WHITE BLOOD COUNT 10.5 10^3/uL (4.0-10.0)
[2024-06-10 07:24] LABS: BLOOD UREA NITROGEN 15 MG/DL (9-23); CALCIUM LEVEL 9.3 MG/DL (8.5-10.1); CARBON DIOXIDE LEVEL 28 MMOL/L (20-31); CHLORIDE LEVEL 105 MMOL/L (98-107); CREATININE FOR GFR 0.63 MG/DL (0.55-1.30); GLOMERULAR FILTRATION RATE > 60.0 (>51); GLUCOSE, FASTING 141 MG/DL (60-100); MAGNESIUM LEVEL 2.1 MG/DL (1.8-2.4); POTASSIUM SERUM 4.2 MMOL/L (3.5-5.1); SODIUM LEVEL 140 MMOL/L (136-145)
[2024-06-10 08:02] LABS: PROTHROMBIN TIME 51.2 SECONDS (12.5-14.5)
[2024-06-10 08:20] LABS: INR 5.81
[2024-06-10] MEDS: MONTELUKAST 10 MG TAB PO SCH (09:10)
[2024-06-10] MEDS: LevoFLOXacin IV 750 MG in IV 1 EA IV SCH (09:10)
[2024-06-10] MEDS: METOPROLOL SUCC (TopROL XL) 50MG **XL** TAB PO SCH (09:10)
[2024-06-10] MEDS ORDERED: WARFARIN SOD 5MG TAB PO SCH (17:00)
[2024-06-10 23:27] VITALS: BP 135/90; TEMP 98.3; O2SAT 97
[2024-06-11 04:37] VITALS: BP 158/89; TEMP 98.1; O2SAT 98
[2024-06-11] MEDS: LevoFLOXacin 750 MG TABLET PO SCH (05:45)
[2024-06-11 06:57] LABS: HEMATOCRIT 43.5 % (36.0-47.0); HEMOGLOBIN 14.3 g/dl (12.0-15.5); MEAN CORPUSCULAR HEMOGLOBIN 28.7 pg (27.0-33.0); MEAN CORPUSCULAR HGB CONC 32.9 g/dl (32.0-36.5); MEAN CORPUSCULAR VOLUME 87.2 fl (80.0-96.0); PLATELET COUNT, AUTOMATED 259 10^3/uL (150-450); RED BLOOD COUNT 4.99 10^6/uL (4.00-5.40)
[2024-06-11 07:16] LABS: BLOOD UREA NITROGEN 21 MG/DL (9-23); CALCIUM LEVEL 9.4 MG/DL (8.5-10.1); CARBON DIOXIDE LEVEL 28 MMOL/L (20-31); CHLORIDE LEVEL 103 MMOL/L (98-107); CREATININE FOR GFR 0.66 MG/DL (0.55-1.30); GLOMERULAR FILTRATION RATE > 60.0 (>51); GLUCOSE, FASTING 120 MG/DL (60-100); MAGNESIUM LEVEL 1.9 MG/DL (1.8-2.4); POTASSIUM SERUM 4.1 MMOL/L (3.5-5.1); SODIUM LEVEL 140 MMOL/L (136-145)
[2024-06-11 07:48] LABS: INR 6.08
[2024-06-11 08:42] VITALS: BP 141/88; TEMP 98.1; O2SAT 95
[2024-06-11 11:54] VITALS: BP 137/87; TEMP 98.2; O2SAT 97
[2024-06-11] MEDS: guaiFENesin ER TABLET 600 MG TAB PO SCH (14:05)
[2024-06-11 14:13] LABS: C REACTIVE PROTEIN QUANTITATIV 8.53 MG/DL (<1.0)
[2024-06-11 16:00] VITALS: BP 122/75; TEMP 98.1; O2SAT 93
[2024-06-11 19:30] VITALS: BP 142/88; TEMP 97.2; O2SAT 97
[2024-06-11 23:48] VITALS: BP 142/87; TEMP 98; O2SAT 93
[2024-06-12] VITALS (7 sets, daily range): BP systolic 129–163; BP diastolic 83–99; TEMP 96.9–98.3; O2SAT 93–98
[2024-06-12 07:21] LABS: HEMATOCRIT 42.5 % (36.0-47.0); MEAN CORPUSCULAR HEMOGLOBIN 28.7 pg (27.0-33.0); MEAN CORPUSCULAR HGB CONC 32.9 g/dl (32.0-36.5); MEAN CORPUSCULAR VOLUME 87.3 fl (80.0-96.0); PLATELET COUNT, AUTOMATED 279 10^3/uL (150-450); RED BLOOD COUNT 4.87 10^6/uL (4.00-5.40)
[2024-06-12 07:45] LABS: ALBUMIN 2.7 G/DL (3.2-5.2); ALKALINE PHOSPHATASE 90 U/L (35-104); ALT/SGPT 52 U/L (7.0-40); AST/SGOT 76 U/L (<34); BILIRUBIN,TOTAL 0.3 MG/DL (0.3-1.2); BLOOD UREA NITROGEN 19 MG/DL (9-23); C REACTIVE PROTEIN QUANTITATIV 4.03 MG/DL (<1.0); CALCIUM LEVEL 9.1 MG/DL (8.5-10.1); CARBON DIOXIDE LEVEL 29 MMOL/L (20-31); CHLORIDE LEVEL 104 MMOL/L (98-107); CREATININE FOR GFR 0.67 MG/DL (0.55-1.30); GLOMERULAR FILTRATION RATE > 60.0 (>51); GLUCOSE, FASTING 119 MG/DL (60-100); POTASSIUM SERUM 4.2 MMOL/L (3.5-5.1); SODIUM LEVEL 139 MMOL/L (136-145); TOTAL PROTEIN 6.4 G/DL (5.7-8.2)
[2024-06-12 07:57] LABS: INR 6.39
[2024-06-12] MEDS: SODIUM CHLORIDE NASAL 0.65% SPRAY BTL (OCEAN) PRN (22:17)
[2024-06-13 04:09] VITALS: BP 158/85; TEMP 97.6; O2SAT 95
[2024-06-13 05:28] LABS: HEMATOCRIT 42.5 % (36.0-47.0); HEMOGLOBIN 13.8 g/dl (12.0-15.5); MEAN CORPUSCULAR HEMOGLOBIN 28.4 pg (27.0-33.0); MEAN CORPUSCULAR HGB CONC 32.5 g/dl (32.0-36.5); MEAN CORPUSCULAR VOLUME 87.4 fl (80.0-96.0); PLATELET COUNT, AUTOMATED 252 10^3/uL (150-450); RED BLOOD COUNT 4.86 10^6/uL (4.00-5.40)
[2024-06-13 05:42] LABS: PROTHROMBIN TIME 46.6 SECONDS (12.5-14.5)
[2024-06-13 05:56] LABS: BLOOD UREA NITROGEN 21 MG/DL (9-23); CALCIUM LEVEL 8.7 MG/DL (8.5-10.1); CARBON DIOXIDE LEVEL 28 MMOL/L (20-31); CHLORIDE LEVEL 106 MMOL/L (98-107); CREATININE FOR GFR 0.83 MG/DL (0.55-1.30); GLOMERULAR FILTRATION RATE > 60.0 (>51); GLUCOSE, FASTING 136 MG/DL (60-100); POTASSIUM SERUM 4.4 MMOL/L (3.5-5.1); SODIUM LEVEL 140 MMOL/L (136-145)
[2024-06-13 07:37] LABS: INR 5.14
[2024-06-13] MEDS ORDERED: PRED20TA PO (08:30)
[2024-06-13] MEDS ORDERED: LEVO75TAB PO (08:30)
[2024-06-13 08:34] VITALS: BP 152/90; TEMP 97.9; O2SAT 97
[2024-06-13 10:17] VITALS: BP 134/88
== END 2024-06-13 14:54 | disposition home or self-care (01) | DRG 45 ==
LOC: M ED 04:26 → M ED INP 08:57 → EEVIPCON 08:57 → M PCU 06-11 00:18
PROVIDERS: ADMIT Family Medicine; ATTEND Family Medicine
DX: I63.9 Cerebral infarction, unspecified (principal); J18.9 Pneumonia, unspecified organism; J96.10 Chronic respiratory failure, unspecified whether with hypoxia or hypercapnia; Z99.81 Dependence on supplemental oxygen; I48.91 Unspecified atrial fibrillation; G81.92 Hemiplegia, unspecified affecting left dominant side; J44.0 Chronic obstructive pulmonary disease with (acute) lower respiratory infection; I25.10 Atherosclerotic heart disease of native coronary artery without angina pectoris; Z95.2 Presence of prosthetic heart valve; Z95.0 Presence of cardiac pacemaker; F17.200 Nicotine dependence, unspecified, uncomplicated; Z88.0 Allergy status to penicillin; Z88.2 Allergy status to sulfonamides; Z88.6 Allergy status to analgesic agent; Z91.010 Allergy to peanuts; Z91.018 Allergy to other foods; Z91.040 Latex allergy status; Z91.030 Bee allergy status; Z79.01 Long term (current) use of anticoagulants; Z79.899 Other long term (current) drug therapy

== ENCOUNTER → 2025-02-22 | Outpatient (REF) | payer OTHER, MEDICAID ==
[~2025-02-22] MED LIST changes: +IPRA0.00 INH; +LEVO1TAB40 PO; +LEVO75TAB PO; +LIDO1ADH93 TD; -LIDO5DIS41 TD; +ZYRT10TA12 PO
[2025-02-22 19:53] LABS: BASO # 0.1 10^3/uL (0.0-0.2); BASO % 1.1 % (0.0-1.0); EOS # 0.2 10^3/uL (0.0-0.5); EOS % 4.4 % (0.0-3.0); LYMPH # 1.1 10^3/uL (1.5-5.0); LYMPH % 23.5 % (24.0-44.0); MONO # 0.7 10^3/uL (0.0-0.8); MONO % 14.6 % (2.0-8.0); NEUTROPHILS # 2.5 10^3/uL (1.5-8.5); NEUTROPHILS % 54.9 % (36.0-66.0); PLATELET COUNT, AUTOMATED 152 10^3/uL (150-450)
[2025-02-22 20:02] LABS: ALT/SGPT 14.0 U/L (7.0-40); AST/SGOT 26.0 U/L (<34); CALCIUM LEVEL 8.7 MG/DL (8.5-10.1); CARBON DIOXIDE LEVEL 28.0 MMOL/L (20-31); CHLORIDE LEVEL 108.0 MMOL/L (98-107); CHOLESTEROL LEVEL 112.0 MG/DL (<200); CHOLESTEROL RISK RATIO 2.7 (<5); CREATININE FOR GFR 0.95 MG/DL (0.55-1.30); GLOMERULAR FILTRATION RATE 71.6 (>51); LDL CHOLESTEROL 52.6 MG/DL (<100); NON-HDL-C 70.6 MG/DL; POTASSIUM SERUM 4.0 MMOL/L (3.5-5.1); SODIUM LEVEL 141.0 MMOL/L (136-145); TRIGLYCERIDES LEVEL 90.0 MG/DL (<150)
== END ==
LOC: M LAB REF 11:21
PROVIDERS: ATTEND Student in an Organized Health Care Education/Training Program
DX: Z00.00 Encounter for general adult medical examination without abnormal findings (principal); E06.3 Autoimmune thyroiditis

== ENCOUNTER 2025-02-27 14:35 | Emergency (ER) | payer MEDICAID, OTHER ==
[~2025-02-27] VITALS: Ht 172.7 cm; Wt 67.7 kg
[~2025-02-27 14:35] MED LIST changes: -LEVO1TAB40 PO
[2025-02-27] MEDS: predniSONE 20 MG TAB PO ONE (20:03)
[2025-02-27] MEDS: IPRATROPIUM 0.5 MG/ALBUTEROL 2.5 MG INH SOL UD 3 ML NEB SCH (20:11)
[2025-02-27] MEDS ORDERED: PRED20TA PO (21:01)
[2025-02-27] MEDS ORDERED: LEVO1TAB40 PO (21:01)
[2025-02-27 21:10] VITALS: BP 119/75; TEMP 96.3; O2SAT 96
== END 2025-02-27 21:11 | disposition home or self-care (01) ==
LOC: M ED 14:35
DX: J44.1 Chronic obstructive pulmonary disease with (acute) exacerbation (principal); B34.1 Enterovirus infection, unspecified; F17.210 Nicotine dependence, cigarettes, uncomplicated; Z88.0 Allergy status to penicillin; Z88.2 Allergy status to sulfonamides; Z88.6 Allergy status to analgesic agent; Z91.040 Latex allergy status; Z91.030 Bee allergy status; Z91.010 Allergy to peanuts; Z79.51 Long term (current) use of inhaled steroids; Z79.52 Long term (current) use of systemic steroids; Z79.899 Other long term (current) drug therapy
CPT/HCPCS: 71046; 87486; 87581; 87633; 87798; 94640; 99284; J7512

== ENCOUNTER → 2025-03-23 | Outpatient (REF) | payer OTHER ==
[~2025-03-23] MED LIST changes: +LEVO1TAB40 PO
[2025-03-25 12:18] LABS: HPV APTIMA Not Detected (Not Detected)
== END ==
LOC: M LAB REF 17:13
PROVIDERS: ATTEND Student in an Organized Health Care Education/Training Program
DX: Z12.4 Encounter for screening for malignant neoplasm of cervix (principal); R87.610 Atypical squamous cells of undetermined significance on cytologic smear of cervix (ASC-US)

== ENCOUNTER 2025-05-11 10:52 | Inpatient (IN) | payer OTHER, MEDICAID ==
[~2025-05-11] VITALS: Ht 172.7 cm; Wt 75.1 kg
[2025-05-11 11:18] LABS: BASO # 0.1 10^3/uL (0.0-0.2); BASO % 0.6 % (0.0-1.0); EOS # 0.1 10^3/uL (0.0-0.5); EOS % 0.7 % (0.0-3.0); LYMPH # 2.1 10^3/uL (1.5-5.0); LYMPH % 17.5 % (24.0-44.0); MONO # 1.0 10^3/uL (0.0-0.8); MONO % 7.8 % (2.0-8.0); NEUTROPHILS # 8.9 10^3/uL (1.5-8.5); NEUTROPHILS % 72.8 % (36.0-66.0); PLATELET COUNT, AUTOMATED 232 10^3/uL (150-450)
[2025-05-11] MEDS: METOPROLOL 5 MG/5 ML VIAL IV SCH (11:28)
[2025-05-11 11:38] LABS: CPK CREATINE PHOSPHOKINASE 88.0 U/L (34-145)
[2025-05-11 11:39] LABS: ALT/SGPT 29.0 U/L (7.0-40); AST/SGOT 42.0 U/L (<34); CALCIUM LEVEL 9.4 MG/DL (8.5-10.1); CARBON DIOXIDE LEVEL 25.0 MMOL/L (20-31); CHLORIDE LEVEL 105.0 MMOL/L (98-107); CK-MB VALUE MASS 2.4 NG/ML (<3.6); CREATININE FOR GFR 1.23 MG/DL (0.55-1.30); GLOMERULAR FILTRATION RATE 52.2 (>51); MB/CK RELATIVE INDEX 2.72 (< OR =4); POTASSIUM SERUM 4.9 MMOL/L (3.5-5.1); SODIUM LEVEL 141.0 MMOL/L (136-145)
[2025-05-11] MEDS ORDERED: ISOVUE-370 76% 100 ML VIAL As Ordered ONE (12:07)
[2025-05-11] MEDS ORDERED: ALBU8.5H INH (12:53)
[2025-05-11] MEDS ORDERED: WARF-23 PO (12:53)
[2025-05-11] MEDS ORDERED: HOME MED LIST COMPLETE! XX SCH (12:55)
[2025-05-11] MEDS: AMIODARONE HCL 150 MG in IV 1 EA IV ONE (13:24)
[2025-05-11 13:28] LABS: INR 3.67
[2025-05-11] MEDS: IPRATROPIUM 0.5 MG/ALBUTEROL 2.5 MG INH SOL UD 3 ML NEB PRN (13:58)
[2025-05-11] MEDS: AMIODARONE HCL 360 MG in IV 1 EA IV SCH ×2 (14:39→20:53)
[2025-05-11] MEDS ORDERED: ACETAMINOPHEN 325 MG TAB PO PRN (15:05)
[2025-05-11] MEDS: OSELTAMIVIR PHOSPHATE 75 MG CAP PO ONE (16:10)
[2025-05-11] MEDS: LEVALBUTEROL 1.25 MG 0.5ML CONCENTRATE NEB NEB PRN (16:28)
[2025-05-11] MEDS: WARFARIN SOD 5MG TAB PO SCH (17:17)
[2025-05-11] MEDS: LEVALBUTEROL 1.25 MG 0.5ML CONCENTRATE NEB NEB ONE (17:50)
[2025-05-11] MEDS ORDERED: ADVAIR HFA 115/21 MCG INHALER INH SCH (20:00)
[2025-05-11] MEDS: BUDESONIDE 0.5 MG/2 ML INHALATION SUSPENSION NEB ONE (20:07)
[2025-05-11] MEDS: ADVAIR HFA 115/21 MCG INHALER INH SCH (20:08)
[2025-05-11] MEDS: PANTOPRAZOLE 40MG TAB PO SCH (20:53)
[2025-05-11] MEDS: DOXYCYCLINE HYCLATE 100 MG TABLET PO SCH (20:53)
[2025-05-11] MEDS: MONTELUKAST 10 MG TAB PO SCH (20:53)
[2025-05-11] MEDS ORDERED: AMIODARONE HCL 360 MG in IV 1 EA IV SCH (21:00)
[2025-05-11 21:38] LABS: ABG BASE EXCESS -12.1 (-2.0-2.0); ABG HCO3 11.6 MMOL/L (22.0-26.0); ABG O2 SATURATION 99.5 % (95.0-99.0); ABG PARTIAL PRESSURE CO2 22.2 mmHg (35.0-45.0); ABG PARTIAL PRESSURE O2 252.6 mmHg (75.0-100.0); ABG STANDARD HCO3 15.2 MMOL/L. (22.0-26.0); ABG TOTAL CO2 12.3 MMOL/L (22.0-29.0); ABG pH (ARTERIAL) 7.335 UNITS (7.350-7.450)
[2025-05-11] MEDS: IPRATROPIUM 0.5 MG/ALBUTEROL 2.5 MG INH SOL UD 3 ML NEB SCH (21:40)
[2025-05-11] MEDS: MORPHINE 2 MG/ML 1 ML VIAL IV ONE (22:15)
[2025-05-11] MEDS: guaiFENesin SYRUP 200 MG/10 ML UDC PO ONE (22:15)
[2025-05-11 22:56] LABS: CK-MB VALUE MASS 3.3 NG/ML (<3.6)
[2025-05-11 23:08] LABS: CPK CREATINE PHOSPHOKINASE 112.0 U/L (34-145); MB/CK RELATIVE INDEX 2.94 (< OR =4)
[2025-05-11] MEDS: MAG SULF 1GM/100ML (MAG RUN) 1 GM in IV 1 EA IV SCH (23:28)
[2025-05-12] VITALS (8 sets, daily range): BP systolic 102–138; BP diastolic 63–80; TEMP 97.1–97.2; O2SAT 93–100
[2025-05-12 07:55] LABS: BASO # 0.0 10^3/uL (0.0-0.2); BASO % 0.2 % (0.0-1.0); EOS # 0.0 10^3/uL (0.0-0.5); EOS % 0.0 % (0.0-3.0); LYMPH # 0.8 10^3/uL (1.5-5.0); LYMPH % 4.0 % (24.0-44.0); MONO # 0.9 10^3/uL (0.0-0.8); MONO % 4.5 % (2.0-8.0); NEUTROPHILS # 18.1 10^3/uL (1.5-8.5); NEUTROPHILS % 90.0 % (36.0-66.0); PLATELET COUNT, AUTOMATED 178 10^3/uL (150-450)
[2025-05-12] MEDS ORDERED: BUDESONIDE 0.5 MG/2 ML INHALATION SUSPENSION NEB SCH (08:00)
[2025-05-12 08:18] LABS: CALCIUM LEVEL 8.5 MG/DL (8.5-10.1); CARBON DIOXIDE LEVEL 16.0 MMOL/L (20-31); CHLORIDE LEVEL 103.0 MMOL/L (98-107); CREATININE FOR GFR 1.6 MG/DL (0.55-1.30); GLOMERULAR FILTRATION RATE 38.1 (>51); POTASSIUM SERUM 4.9 MMOL/L (3.5-5.1); SODIUM LEVEL 135.0 MMOL/L (136-145)
[2025-05-12] MEDS: CETIRIZINE 10 MG TAB PO SCH (09:20)
[2025-05-12 10:07] LABS: INR 7.81
[2025-05-12] MEDS: METOPROLOL SUCC. 100 MG *XL* TAB PO SCH (10:41)
[2025-05-12] MEDS: NS (Normal Saline) 0.9% 1,000 ML IV ONE (11:33)
[2025-05-12] MEDS: LEVALBUTEROL 1.25 MG 0.5ML CONCENTRATE NEB INH SCH (14:35)
[2025-05-12] MEDS: IPRATROPIUM 0.5 MG/2.5 ML (0.02%) SOLN NEB INH SCH (14:35)
[2025-05-12] MEDS: LORazepam 0.5 MG TAB PO PRN (15:08)
[2025-05-12] MEDS: MORPHINE 10 MG/0.5 ML ORAL CONCENTRATE SOLUTION U/D SL PRN (18:30)
[2025-05-12] MEDS: DIGOXIN INJ 0.5 MG/2 ML AMP IV ONE (18:44)
[2025-05-12] MEDS: AMIODARONE 200 MG TAB PO SCH (18:44)
[2025-05-12] MEDS: BUDESONIDE 0.5 MG/2 ML INHALATION SUSPENSION NEB SCH (19:22)
[2025-05-12 19:30] LABS: ABG BASE EXCESS -14.1 (-2.0-2.0); ABG HCO3 11.1 MMOL/L (22.0-26.0); ABG O2 SATURATION 97.0 % (95.0-99.0); ABG PARTIAL PRESSURE CO2 25.2 mmHg (35.0-45.0); ABG PARTIAL PRESSURE O2 110.9 mmHg (75.0-100.0); ABG STANDARD HCO3 13.7 MMOL/L. (22.0-26.0); ABG TOTAL CO2 11.9 MMOL/L (22.0-29.0); ABG pH (ARTERIAL) 7.261 UNITS (7.350-7.450)
[2025-05-12] MEDS ORDERED: MORPHINE 10 MG/0.5 ML ORAL CONCENTRATE SOLUTION U/D SL PRN (19:30)
[2025-05-12] MEDS ORDERED: SODIUM CHLORIDE HYPERTONIC 3% 4ML NEB SOL INH PRN (19:55)
[2025-05-12] MEDS: dexmedeTOMidine 200 MCG in IV 1 EA IV SCH (20:49)
[2025-05-12] MEDS ORDERED: AMIODARONE 200 MG TAB PO SCH (21:00)
[2025-05-12] MEDS: PANTOPRAZOLE 40MG TAB PO SCH (21:00)
[2025-05-12] MEDS: MAG SULF 1GM/100ML (MAG RUN) 1 GM in IV 1 EA IV SCH (21:55)
[2025-05-13] VITALS (78 sets, daily range): BP systolic 89–273; BP diastolic 51–248; TEMP 96.7–96.9; O2SAT 57–100
[2025-05-13] MEDS: DIGOXIN INJ 0.5 MG/2 ML AMP IV ONE (00:18)
[2025-05-13] MEDS: IPRATROPIUM 0.5 MG/ALBUTEROL 2.5 MG INH SOL UD 3 ML NEB PRN (02:33)
[2025-05-13 05:21] LABS: ABG BASE EXCESS -7.4 (-2.0-2.0); ABG HCO3 16.7 MMOL/L (22.0-26.0); ABG O2 SATURATION 98.7 % (95.0-99.0); ABG PARTIAL PRESSURE CO2 29.4 mmHg (35.0-45.0); ABG PARTIAL PRESSURE O2 142.7 mmHg (75.0-100.0); ABG STANDARD HCO3 18.5 MMOL/L. (22.0-26.0); ABG TOTAL CO2 17.6 MMOL/L (22.0-29.0); ABG pH (ARTERIAL) 7.371 UNITS (7.350-7.450)
[2025-05-13 08:32] LABS: BASO # 0.0 10^3/uL (0.0-0.2); BASO % 0.1 % (0.0-1.0); EOS # 0.0 10^3/uL (0.0-0.5); EOS % 0.1 % (0.0-3.0); LYMPH # 0.6 10^3/uL (1.5-5.0); LYMPH % 3.9 % (24.0-44.0); MONO # 0.5 10^3/uL (0.0-0.8); MONO % 2.8 % (2.0-8.0); NEUTROPHILS # 15.0 10^3/uL (1.5-8.5); NEUTROPHILS % 92.5 % (36.0-66.0); PLATELET COUNT, AUTOMATED 162 10^3/uL (150-450)
[2025-05-13 09:06] LABS: CALCIUM LEVEL 7.9 MG/DL (8.5-10.1); CARBON DIOXIDE LEVEL 20.0 MMOL/L (20-31); CHLORIDE LEVEL 101.0 MMOL/L (98-107); CREATININE FOR GFR 1.73 MG/DL (0.55-1.30); GLOMERULAR FILTRATION RATE 34.7 (>51); POTASSIUM SERUM 4.8 MMOL/L (3.5-5.1); SODIUM LEVEL 134.0 MMOL/L (136-145)
[2025-05-13 09:37] LABS: INR 12.95
[2025-05-13] MEDS: FUROSEMIDE 40 MG/4 ML VIAL IV ONE (10:18)
[2025-05-13] MEDS: PHYTONADIONE 5 MG TAB PO ONE (10:18)
[2025-05-13] MEDS ORDERED: MIDAZOLAM 5 MG/ML 1 ML VIAL As Ordered ONE (11:02)
[2025-05-13] MEDS ORDERED: NOREPINEPHRINE 4 MG IN D5W 250 ML IVBAG (16 MCG/ML) As Ordered ONE (11:04)
[2025-05-13] MEDS ORDERED: PROPOFOL 1,000 MG/100 ML VIAL As Ordered ONE (11:10)
[2025-05-13] MEDS: MIDAZOLAM 5 MG/ML 1 ML VIAL IV STA ×2 (11:11→14:15)
[2025-05-13] MEDS: NOREPINEPHRINE 4MG IN D5 250ML 4 MG in IV 1 EA IV SCH (11:14)
[2025-05-13] MEDS ORDERED: EPINEPHrine INJ 1 MG/ML 1ML AMP As Ordered ONE (11:16)
[2025-05-13] MEDS: EPINEPHrine 1 MG/10 ML SYRINGE 1.5IN IV STA (11:20)
[2025-05-13] MEDS ORDERED: VASOPRESSIN IN 0.9 % NACL 20UNIT/100ML INFUS.BTL As Ordered ONE (12:37)
[2025-05-13] MEDS: GLYCOPYRROLATE INJ 0.2 MG/ML 2 ML VIAL NEB SCH (12:47)
[2025-05-13] MEDS: VASOPRESSIN IN 0.9 % NACL 20 UNIT in IV 1 EA IV SCH (13:30)
[2025-05-13 13:40] LABS: ABG STANDARD HCO3 11.4 MMOL/L. (22.0-26.0)
[2025-05-13 13:43] LABS: ABG BASE EXCESS -18.0 (-2.0-2.0); ABG HCO3 12.6 MMOL/L (22.0-26.0); ABG O2 SATURATION 99.7 % (95.0-99.0); ABG PARTIAL PRESSURE CO2 48.6 mmHg (35.0-45.0); ABG PARTIAL PRESSURE O2 397.2 mmHg (75.0-100.0); ABG TOTAL CO2 14.1 MMOL/L (22.0-29.0)
[2025-05-13 13:45] LABS: ABG pH (ARTERIAL) 7.032 UNITS (7.350-7.450)
[2025-05-13 15:30] LABS: ABG BASE EXCESS -17.3 (-2.0-2.0); ABG HCO3 13.0 MMOL/L (22.0-26.0); ABG O2 SATURATION 88.1 % (95.0-99.0); ABG PARTIAL PRESSURE CO2 47.8 mmHg (35.0-45.0); ABG PARTIAL PRESSURE O2 78.0 mmHg (75.0-100.0); ABG STANDARD HCO3 11.7 MMOL/L. (22.0-26.0); ABG TOTAL CO2 14.5 MMOL/L (22.0-29.0)
[2025-05-13 15:32] LABS: ABG pH (ARTERIAL) 7.053 UNITS (7.350-7.450)
[2025-05-13 16:26] LABS: BASO # 0.1 10^3/uL (0.0-0.2); BASO % 0.3 % (0.0-1.0); EOS # 0.0 10^3/uL (0.0-0.5); EOS % 0.0 % (0.0-3.0); LYMPH # 0.8 10^3/uL (1.5-5.0); LYMPH % 2.4 % (24.0-44.0); MONO # 1.4 10^3/uL (0.0-0.8); MONO % 4.3 % (2.0-8.0); NEUTROPHILS # 29.0 10^3/uL (1.5-8.5); NEUTROPHILS % 88.3 % (36.0-66.0); PLATELET COUNT, AUTOMATED 207 10^3/uL (150-450)
[2025-05-13 17:00] LABS: CALCIUM LEVEL 7.7 MG/DL (8.5-10.1); CARBON DIOXIDE LEVEL 15 MMOL/L (20-31); CHLORIDE LEVEL 97 MMOL/L (98-107); CREATININE FOR GFR 2.38 MG/DL (0.55-1.30); GLOMERULAR FILTRATION RATE 23.7 (>51); MAGNESIUM LEVEL 3.8 MG/DL (1.8-2.4); PHOSPHORUS LEVEL 10.1 MG/DL (2.5-4.9); POTASSIUM SERUM 7.5 MMOL/L (3.5-5.1); SODIUM LEVEL 127 MMOL/L (136-145)
[2025-05-13 17:14] LABS: ALT/SGPT 4460 U/L (7.0-40); AST/SGOT > 6000 U/L (<34)
[2025-05-13] MEDS: SOD POLYSTYRENE SULFONATE SUSP 15GM 60ML UD PO SCH ×2 (17:15→19:40)
[2025-05-13 17:22] LABS: ABG BASE EXCESS -16.3 (-2.0-2.0); ABG HCO3 12.3 MMOL/L (22.0-26.0); ABG O2 SATURATION 96.5 % (95.0-99.0); ABG PARTIAL PRESSURE CO2 38.9 mmHg (35.0-45.0); ABG PARTIAL PRESSURE O2 114.6 mmHg (75.0-100.0); ABG STANDARD HCO3 12.4 MMOL/L. (22.0-26.0); ABG TOTAL CO2 13.5 MMOL/L (22.0-29.0)
[2025-05-13 17:25] LABS: ABG pH (ARTERIAL) 7.119 UNITS (7.350-7.450)
[2025-05-13] MEDS: HumuLIN R (REGULAR) INSULIN (NovoLIN R) **100 U/ML** PER UNIT IV STA (17:25)
[2025-05-13] MEDS: CALCIUM GLUCONATE 1,000 MG in DEXTROSE 5% (D5W) MINI-BAG PLU 100 ML IV ONE (17:25)
[2025-05-13] MEDS: DEXTROSE 50% 50 ML SYRINGE IV STA (17:25)
[2025-05-13] MEDS: SODIUM BICARBONATE 150 MEQ in D5W 1,000 ML IV SCH (18:56)
[2025-05-13] MEDS: HYDROCORTISONE 100 MG/2 ML VIAL IV SCH (19:40)
[2025-05-13 20:57] LABS: ABG BASE EXCESS -14.7 (-2.0-2.0); ABG HCO3 13.2 MMOL/L (22.0-26.0); ABG O2 SATURATION 94.0 % (95.0-99.0); ABG PARTIAL PRESSURE CO2 38.1 mmHg (35.0-45.0); ABG PARTIAL PRESSURE O2 89.2 mmHg (75.0-100.0); ABG STANDARD HCO3 13.3 MMOL/L. (22.0-26.0); ABG TOTAL CO2 14.4 MMOL/L (22.0-29.0)
[2025-05-13 20:59] LABS: ABG pH (ARTERIAL) 7.158 UNITS (7.350-7.450)
[2025-05-13 21:13] LABS: BASO # 0.1 10^3/uL (0.0-0.2); BASO % 0.3 % (0.0-1.0); EOS # 0.0 10^3/uL (0.0-0.5); EOS % 0.0 % (0.0-3.0); LYMPH # 0.6 10^3/uL (1.5-5.0); LYMPH % 2.0 % (24.0-44.0); MONO # 1.8 10^3/uL (0.0-0.8); MONO % 6.2 % (2.0-8.0); NEUTROPHILS # 24.9 10^3/uL (1.5-8.5); NEUTROPHILS % 87.8 % (36.0-66.0); PLATELET COUNT, AUTOMATED 202 10^3/uL (150-450)
[2025-05-13 22:02] LABS: ALT/SGPT 4061 U/L (7.0-40); AST/SGOT > 6000 U/L (<34); CALCIUM LEVEL 7.6 MG/DL (8.5-10.1); CARBON DIOXIDE LEVEL 14 MMOL/L (20-31); CHLORIDE LEVEL 97 MMOL/L (98-107); CREATININE FOR GFR 2.71 MG/DL (0.55-1.30); GLOMERULAR FILTRATION RATE 20.2 (>51); POTASSIUM SERUM 6.2 MMOL/L (3.5-5.1); SODIUM LEVEL 126 MMOL/L (136-145)
[2025-05-14] VITALS (50 sets, daily range): BP systolic 90–115; BP diastolic 62–77; TEMP 96.9–100.8; O2SAT 95–99
[2025-05-14 05:46] LABS: ABG BASE EXCESS -3.9 (-2.0-2.0); ABG HCO3 20.5 MMOL/L (22.0-26.0); ABG O2 SATURATION 96.8 % (95.0-99.0); ABG PARTIAL PRESSURE CO2 35.0 mmHg (35.0-45.0); ABG PARTIAL PRESSURE O2 95.1 mmHg (75.0-100.0); ABG STANDARD HCO3 21.3 MMOL/L. (22.0-26.0); ABG TOTAL CO2 21.5 MMOL/L (22.0-29.0); ABG pH (ARTERIAL) 7.385 UNITS (7.350-7.450)
[2025-05-14 05:57] LABS: BASO # 0.1 10^3/uL (0.0-0.2); BASO % 0.2 % (0.0-1.0); EOS # 0.0 10^3/uL (0.0-0.5); EOS % 0.0 % (0.0-3.0); LYMPH # 1.0 10^3/uL (1.5-5.0); LYMPH % 4.8 % (24.0-44.0); MONO # 1.2 10^3/uL (0.0-0.8); MONO % 5.7 % (2.0-8.0); NEUTROPHILS # 18.5 10^3/uL (1.5-8.5); NEUTROPHILS % 87.7 % (36.0-66.0); PLATELET COUNT, AUTOMATED 160 10^3/uL (150-450)
[2025-05-14 06:34] LABS: ALT/SGPT 3910 U/L (7.0-40); AST/SGOT > 6000 U/L (<34); CALCIUM LEVEL 6.7 MG/DL (8.5-10.1); CARBON DIOXIDE LEVEL 20 MMOL/L (20-31); CHLORIDE LEVEL 93 MMOL/L (98-107); CREATININE FOR GFR 3.11 MG/DL (0.55-1.30); GLOMERULAR FILTRATION RATE 17.2 (>51); POTASSIUM SERUM 5.2 MMOL/L (3.5-5.1); SODIUM LEVEL 125 MMOL/L (136-145)
[2025-05-14 06:57] LABS: INR > 23.00
[2025-05-14] MEDS ORDERED: DEXTROSE 50% 50 ML SYRINGE IV PRN (07:35)
[2025-05-14] MEDS ORDERED: GLUCOSE 4 GM CHEW PO PRN (07:35)
[2025-05-14] MEDS ORDERED: GLUCAGON INJ 1 MG VIAL SC PRN (07:35)
[2025-05-14] MEDS: PHYTONADIONE INJection 10 MG in NS 50 ML IV ONE (08:42)
[2025-05-14] MEDS ORDERED: VANCOMYCIN HCL 1 MG in IV FLUID PLACE HOLDER 1 EA IV ONE (09:20)
[2025-05-14] MEDS: CALCIUM GLUCONATE 1,000 MG in DEXTROSE 5% (D5W) MINI-BAG PLU 100 ML IV ONE (10:19)
[2025-05-14] MEDS: FUROSEMIDE 100 MG/10 ML VIAL IV ONE (10:19)
[2025-05-14] MEDS ORDERED: MEROPENEM 1 GM in IV 1 EA IV ONE (11:00)
[2025-05-14] MEDS: DOBUTamine HCL 500,000 MCG in IV 1 EA IV SCH (11:16)
[2025-05-14] MEDS ORDERED: VANCOMYCIN HCL 1,500 MG, VIAL MATE ADAPTER 1 EACH in NS 500 ML IV ONE (12:00)
[2025-05-14] MEDS ORDERED: INSULIN LISPRO (NovoLOG) PER UNIT SC SCH (12:00)
[2025-05-14] MEDS ORDERED: ETOMIDATE 20 MG/10 ML VIAL ONE (12:52)
[2025-05-14] MEDS ORDERED: ROCURONIUM BROMIDE 50MG/5ML VIAL ONE (12:52)
== END 2025-05-14 12:53 | disposition short-term general hospital (02) | DRG 181 ==
LOC: M ED 10:52 → EDBD 10:52 → M ED INP 15:01 → M PCU 05-12 16:37 → M ICU 05-12 20:27
PROVIDERS: ADMIT Internal Medicine Nephrology; ATTEND Internal Medicine Pulmonary Disease
PROC: 0BH17EZ Insertion of Endotracheal Airway into Trachea, Via Natural or Artificial Opening (ICD-10-PCS; principal; 2025-05-13)
PROC: 04HY32Z Insertion of Monitoring Device into Lower Artery, Percutaneous Approach (ICD-10-PCS; 2025-05-13)
PROC: 5A1945Z Respiratory Ventilation, 24-96 Consecutive Hours (ICD-10-PCS; 2025-05-13)
PROC: 06HN33Z Insertion of Infusion Device into Left Femoral Vein, Percutaneous Approach (ICD-10-PCS; 2025-05-13)
PROC: B246ZZZ Ultrasonography of Right and Left Heart (ICD-10-PCS; 2025-05-14)
DX: I48.92 Unspecified atrial flutter (principal); J96.02 Acute respiratory failure with hypercapnia; R57.0 Cardiogenic shock; I50.82 Biventricular heart failure; J96.21 Acute and chronic respiratory failure with hypoxia; J90 Pleural effusion, not elsewhere classified; N17.9 Acute kidney failure, unspecified; J84.10 Pulmonary fibrosis, unspecified; J44.1 Chronic obstructive pulmonary disease with (acute) exacerbation; Z99.81 Dependence on supplemental oxygen; E87.20 Acidosis, unspecified; I11.0 Hypertensive heart disease with heart failure; J43.9 Emphysema, unspecified; E87.1 Hypo-osmolality and hyponatremia; E87.5 Hyperkalemia; J98.11 Atelectasis; K21.00 Gastro-esophageal reflux disease with esophagitis, without bleeding; F41.9 Anxiety disorder, unspecified; E04.1 Nontoxic single thyroid nodule; N39.3 Stress incontinence (female) (male); R91.8 Other nonspecific abnormal finding of lung field; Z95.2 Presence of prosthetic heart valve; Z79.01 Long term (current) use of anticoagulants; Z95.5 Presence of coronary angioplasty implant and graft; Z79.899 Other long term (current) drug therapy; Z88.0 Allergy status to penicillin; Z88.2 Allergy status to sulfonamides; Z88.6 Allergy status to analgesic agent; Z91.010 Allergy to peanuts; Z91.018 Allergy to other foods; Z91.030 Bee allergy status; Z91.040 Latex allergy status; I48.91 Unspecified atrial fibrillation